=== PATIENT | female | born 1995 | race Caucasian/White ===

== ENCOUNTER → 2016-10-19 | Outpatient (CLI) | payer OTHER ==
[~2016-10-19] MED LIST: BCPILLS PO; LMC25 PO; RMR15 PO
[2016-10-22 02:32] LABS: CHLAMYDIA TRACH RNA*** NOT DETECTED (NOT DETECTED); GC (NEIS GONORRHOEAE)RNA** NOT DETECTED (NOT DETECTED)
== END | disposition home or self-care (01) ==
LOC: C.LAB1850 12:41
PROVIDERS: ATTEND Physician Assistant
DX: Z11.3 Encounter for screening for infections with a predominantly sexual mode of transmission (principal)

== ENCOUNTER → 2017-02-24 | Outpatient (CLI) | payer OTHER ==
[~2017-02-24] MED LIST changes: -LMC25 PO; -RMR15 PO
[2017-02-24 18:11] LABS: THYROID STIMULATING HORMONE 3.88 uIu/ml (0.300-4.500)
== END | disposition home or self-care (01) ==
LOC: C.LAB1850 16:23
PROVIDERS: ATTEND Physician Assistant
DX: E03.9 Hypothyroidism, unspecified (principal)

== ENCOUNTER 2017-04-07 19:04 | Inpatient (IN) | payer OTHER ==
[~2017-04-07] VITALS: Ht 162.6 cm; Wt 78.7 kg
[2017-04-07] MEDS ORDERED: BCPILLS PO (19:41)
[2017-04-07 19:51] LABS: URINE APPEARANCE CLEAR (CLEAR); URINE BILIRUBIN NEG (NEG); URINE COLOR YELLOW; URINE NITRITE NEG (NEG); URINE PH 6.5 (4.5-7.5); URINE SPECIFIC GRAVITY 1.012 (1.000-1.030); UROBILINOGEN NEG (NEG)
[2017-04-07 19:53] LABS: MANUAL MICROSCOPIC REQUIRED? NO; REVIEW REQ? NO
[2017-04-07 20:15] LABS: BENZODIAZEPINE, URINE NEG (NEG); COCAINE,URINE NEG (NEG); PHENCYCLIDINE, URINE NEG (NEG)
[2017-04-07 20:24] LABS: BASO % 0.3 %; BASO ABS # 0.03 K/uL (0-0.2); COMPLETE YES; EOS % 3.1 %; HEMATOCRIT 45.8 % (37-47); IG% 0.2 %; LYMPH % 30.1 %; MEAN CELL VOLUME 84.8 fL (80-100); MEAN CORPUSCULAR HEMOGLOBIN 30.4 pg (25-34); MEAN CORPUSCULAR HGB CONC 35.8 g/dl (32-36); MEAN PLATELET VOLUME 11.7 fL (7.4-10.4); MONO % 5.5 %; NEUT % 60.8 %; PLATELET COUNT 297 K/uL (130-400)
[2017-04-07 20:43] LABS: ALT/SGPT 36 U/L (12-78); AST/SGOT 20 U/L (15-37); BLOOD UREA NITROGEN 14 mg/dl (7-18); CALCIUM 9.2 mg/dl (8.5-10.1); CARBON DIOXIDE 23 mmol/L (21-32); CHLORIDE 110 mmol/L (98-107); CREATININE 0.82 mg/dl (0.60-1.20); GLUCOSE 80 mg/dl (70-99); POTASSIUM 3.8 mmol/L (3.5-5.1); SODIUM 141 mmol/L (136-145)
[2017-04-07 20:53] LABS: ALKALINE PHOSPHATASE 81 U/L (45-117)
[2017-04-07 21:31] LABS: PREG INTERNAL NEGATIVE QC NEG CLEAR BACKGROUND; PREG INTERNAL POSITIVE QC POS CONTROL LINE
[2017-04-07] MEDS ORDERED: NURSING VERBAL MED ORDER ONE (22:15)
[2017-04-07 22:42] VITALS: O2SAT 98
[2017-04-07] MEDS ORDERED: SODIUM CHLORIDE 0.65% NA SOLN 45 ML (OCEAN) PRN (22:45)
[2017-04-07] MEDS ORDERED: hydrOXYzine HCL 25 MG TAB PO PRN ×2 (22:45)
[2017-04-07] MEDS ORDERED: MAGNESIUM HYDROXIDE SUSP 30 ML UDC PO PRN (22:45)
[2017-04-07] MEDS ORDERED: BISMUTH SUBSALICYLATE PER ML OMNICELL CHARGE PO PRN (22:45)
[2017-04-07] MEDS ORDERED: ALUMINUM/MAGNESIUM SUSP 30 ML UDC PO PRN (22:45)
[2017-04-07] MEDS ORDERED: ACETAMINOPHEN 325 MG TAB PO PRN (22:45)
--- NOTE | 2017-04-08 00:20 | EMERGENCY ROOM VISIT NOTE ---
History Report prepared by Denzel: Fortino Bello Under the Supervision of: Dr. Eris Leblanc D.O. First contact with patient: 19:29 Chief Complaint: MENTAL HEALTH EVALUATION Stated Complaint: ANXIETY, DEPRESSION, SUICIDAL THOUGHTS History of Present Illness The patient is a 21 year old female who presents to the Emergency Room for a mental health evaluation. The patient states she has been experiencing worsening , chronic anxiety and depression over the past four days. She reports she had a really bad flare up, and since then she has experienced a very low mood and multiple anxiety attacks. The patient notes she has also been experiencing worsening, general suicidal ideation. She states she has not taken action, has no set plan, and her thoughts are typically intermittent. The patient reports she always has the "back up plan" where she takes all her prescribed medication at once. She notes she "doesn't care what happens to her." The patient states she has had no motivation, and she has been out of work for the past three days. 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 The patient notes she has not taken her medication for the past 3-4 months. She states she normally takes Lamictal and Wellbutrin daily and Lorazepam as needed. The patient reports she has been taking her Lorazepam more frequently over the past few days. She notes she has a history of hypothyroidism, and she does not take medication for it. The patient denies chest pain, shortness of breath, nausea, vomiting, diarrhea, and any other physical complaint. She states she has never been here before, has been seeing a psychiatrist and psychologist for two years, and is will to come in for treatment. The patient reports she has a history of cutting her upper thighs, but nothing recent. Source of History: patient Onset: four days ago Position: other (global) Quality: other (anxiety and depression) Timing: worsening Associated Symptoms: No chest pain, No SOB, No nausea, No vomiting, No diarrhea Note: Associated symptoms: suicidal ideations Review of Systems See HPI for pertinent positives & negatives. A total of 10 systems reviewed and were otherwise negative. Past Medical & Surgical Medical Problems: (1) Anxiety (2) Depression Family History Patient reports no known family medical history. Social History Smoking Status: Never Smoker Marital Status: in relationship Occupation Status: employed Current/Historical Medications Scheduled Control Pills ( Control Pills), 1 TAB PO DAILY Allergies Coded Allergies: Adhesives (Unverified Allergy, Unknown, RASH, 04/07/17) Aripiprazole (Unverified Allergy, Unknown, NAUSEA/VOMITING, 04/07/17) Nickel (Unverified Allergy, Unknown, RASH, 04/07/17) Physical Exam Vital Signs Date Time Temp Pulse Resp B/P (MAP) Pulse Ox O2 Delivery O2 Flow Rate FiO2 04/07/17 19:17 37.5 82 18 162/102 98 Room Air Physical Exam GENERAL: Sitting up in bed, alert, well appearing, well nourished, no distress, non-toxic EYE EXAM: normal conjunctiva OROPHARYNX: no exudate, no erythema, lips, buccal mucosa, and tongue normal and mucous membranes are moist NECK: supple, no nuchal rigidity, no adenopathy, non-tender LUNGS: Clear to auscultation. Normal chest wall mechanics HEART: no murmurs, S1 normal and S2 normal ABDOMEN: abdomen soft, non-tender, normo-active bowel sounds, no masses, no rebound or guarding. BACK: Back is symmetrical on inspection and there is no deformity, no midline tenderness, no CVA tenderness. SKIN: no rashes and no bruising UPPER EXTREMITIES: upper extremities are grossly normal. LOWER EXTREMITIES: No pitting edema. NEURO EXAM: Normal sensorium, cranial nerves II-XII grossly intact, normal speech, no gross weakness of arms, no gross weakness of legs. PSYCH: Admits to suicidal ideation and depression Medical Decision & Procedures Laboratory Results 04/07/17 20:02 Red Blood Count 5.40, Mean Corpuscular Volume 84.8, Mean Corpuscular Hemoglobin 30.4, Mean Corpuscular Hemoglobin Concent 35.8, Mean Platelet Volume 11.7, Neutrophils (%) (Auto) 60.8, Lymphocytes (%) (Auto) 30.1, Monocytes (%) (Auto) 5.5, Eosinophils (%) (Auto) 3.1, Basophils (%) (Auto) 0.3, Neutrophils # (Auto) 5.65, Lymphocytes # (Auto) 2.80, Monocytes # (Auto) 0.51, Eosinophils # (Auto) 0.29, Basophils # (Auto) 0.03 04/07/17 20:02 Test 04/07/17 19:39 04/07/17 20:02 Urine Color YELLOW Urine Appearance CLEAR (CLEAR) Urine pH 6.5 (4.5-7.5) Urine Specific [place] 1.012 (1.000-1.030) Urine Protein NEG (NEG) Urine Glucose (UA) NEG (NEG) Urine Ketones NEG (NEG) Urine Occult Blood NEG (NEG) Urine Nitrite NEG (NEG) Urine Bilirubin NEG (NEG) Urine Urobilinogen NEG (NEG) Urine Leukocyte Esterase TRACE (NEG) Urine WBC (Auto) 5-10 /hpf (0-5) Urine RBC (Auto) 0-4 /hpf (0-4) Urine Hyaline Casts (Auto) 0 /lpf (0-5) Urine Epithelial Cells (Auto) 10-20 /lpf (0-5) Urine Bacteria (Auto) NEG (NEG) Urine Opiates Screen NEG (NEG) Urine Methadone, Qualitative NEG (NEG) Urine Barbiturates NEG (NEG) Urine Phencyclidine (PCP) Level NEG (NEG) Ur Amphetamine/Methamphetamine NEG (NEG) MDMA (Ecstasy) Screen NEG (NEG) Urine Benzodiazepines Screen NEG (NEG) Urine Cocaine Metabolite NEG (NEG) Urine Marijuana (THC) POS (NEG) White Blood Count 9.30 K/uL (4.8-10.8) Red Blood Count 5.40 M/uL (4.2-5.4) Hemoglobin 16.4 g/dL (12.0-16.0) Hematocrit 45.8 % (37-47) Mean Corpuscular Volume 84.8 fL (80-100) Mean Corpuscular Hemoglobin 30.4 pg (25-34) Mean Corpuscular Hemoglobin Concent 35.8 g/dl (32-36) Platelet Count 297 K/uL (130-400) Mean Platelet Volume 11.7 fL (7.4-10.4) Neutrophils (%) (Auto) 60.8 % Lymphocytes (%) (Auto) 30.1 % Monocytes (%) (Auto) 5.5 % Eosinophils (%) (Auto) 3.1 % Basophils (%) (Auto) 0.3 % Neutrophils # (Auto) 5.65 K/uL (1.4-6.5) Lymphocytes # (Auto) 2.80 K/uL (1.2-3.4) Monocytes # (Auto) 0.51 K/uL (0.11-0.59) Eosinophils # (Auto) 0.29 K/uL (0-0.5) Basophils # (Auto) 0.03 K/uL (0-0.2) RDW Standard Deviation 37.7 fL (36.4-46.3) RDW Coefficient of Variation 12.4 % (11.5-14.5) Immature Granulocyte % (Auto) 0.2 % Immature Granulocyte # (Auto) 0.02 K/uL (0.00-0.02) Anion Gap 8.0 mmol/L (3-11) Est Creatinine Clear Calc Drug Dose 109.6 ml/min Estimated GFR () 116.9 Estimated GFR (Non- 100.9 BUN/Creatinine Ratio 17.0 (10-20) Calcium Level 9.2 mg/dl (8.5-10.1) Total Bilirubin 0.4 mg/dl (0.2-1) Direct Bilirubin < 0.1 mg/dl (0-0.2) Aspartate Amino Transf (AST/SGOT) 20 U/L (15-37) Alanine Aminotransferase (ALT/SGPT) 36 U/L (12-78) Alkaline Phosphatase 81 U/L (45-117) Total Protein 7.9 gm/dl (6.4-8.2) Albumin 4.4 gm/dl (3.4-5.0) Thyroid Stimulating Hormone (TSH) 5.240 uIu/ml (0.300-4.500) Human Chorionic Gonadotropin, Qual NEG (NEG) Ethyl Alcohol mg/dL < 3.0 mg/dl (0-3) Laboratory results per my review. ED Course ED COURSE: Vital signs were reviewed and showed the patient to be hypertensive. The patients medical record was reviewed The above diagnostic studies were performed and reviewed. ED treatments and interventions as stated above. 1940: The patient was evaluated in room A07. A complete history and physical examination was performed. 2214: The patient was accepted at [facility]. Based on the patients age, coexisting illnesses, exam and lab findings the decision to treat as an inpatient was made. The patient remained stable while under my care. The patient will be evaluated for further management. Medical Decision Differential diagnosis: Etiologies such as mood disorder, infection, hypoglycemia, electrolyte abnormalities, cardiac sources, intracerebral event, toxicologic, neurologic, as well as others were entertained. Patient is a 21-year-old female who presents to ER for thoughts of self-harm which have been worsening recently associated with depression and anxiety. Patient does feels that she is a danger to herself. She has no physical complaints. CBC all BMP, LFTs, bilirubin and TSH are remarkable for a slightly elevated TSH. HCG was negative. UA shows no signs of infection. Patient was updated at bedside and admitted to 3 S. following evaluation by our psychiatric team. Medication Reconcilliation Current Medication List: was personally reviewed by me Blood Pressure Screening Patient's blood pressure: Elevated blood pressure Blood pressure disposition: Elevated BP felt to be situational Impression Primary Impression: Mood disorder Additional Impression: Suicidal thoughts Scribe Attestation The scribe's documentation has been prepared under my direction and personally reviewed by me in its entirety. I confirm that the note above accurately reflects all work, treatment, procedures, and medical decision making performed by me. Departure Information Dispostion Mental Health Acute Care Referrals Fabien Tamayo MD (PCP) Patient Instructions My [facility] Problem Qualifiers
[2017-04-08 00:22] VITALS: BP 138/87; PULSE 84; TEMP 37.5; Ht 162.6 cm; Wt 78.7 kg
[2017-04-08 06:54] VITALS: BP_SYST 121; BP_SYST 134; BP_DIAS 72; BP_DIAS 90; PULSE 81; PULSE 87; TEMP 36.7
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
[2017-04-08] MEDS ORDERED: LORAZEPAM 1 MG TAB PO PRN (16:30)
[2017-04-08] MEDS: MIRTAZAPINE TAB 15 MG TAB PO SCH (21:31)
[2017-04-09 07:05] VITALS: BP_SYST 113; BP_SYST 96; BP_DIAS 64; BP_DIAS 77; PULSE 58; PULSE 80; TEMP 36.6
--- NOTE | 2017-04-09 12:49 | Psychiatric Progress Notes ---
Progress Note Date of Service Apr 09, 2017. Chief Complaint "I do feel less depressed". Subjective Patient was seen & assessed interval progress reviewed with Treatment Team. Per staff, patient doing well in milieu. No acute events overnight. Patient reports reinitiation of Remeron last night seemed to help with sleep and she spent less time with anxious thinking at bedtime. She does describe feeling a little groggy this morning but tolerable. Overall she is feeling more relaxed and describes feeling a little less depressed. She acknowledges some anticipatory anxiety about how she will do at discharge and identifies 2 primary stressors of work and bills. She is considering participating in Narcotics Anonymous and was encouraged to pursue this for additional support. She has already reached out to a friend who participates in Alcoholics Anonymous. She would like to pursue a family meeting with her boyfriend who is also a marijuana abuser as she rightfully worries that his use will undermine her efforts to abstain. Review of Systems Psychiatric: + depression symptoms (but a little less so today), + anxiety Sleep Information Total Hours of Sleep: 7.25 Meal Information Percent of Breakfast Consumed: 100 Percent of Lunch Consumed: 100 Percent of Dinner Consumed: 100 Mental Status Exam During interview pt is: alert and oriented, cooperative Appearance: appropriately dressed, appropriately groomed Eye contact is: good Motor behavior is: steady gait & station Speech: normal in rate, rhythm & volume Affect: mood congruent, depressed, anxious Mood is: depressed Thought process: goal directed (mildly circumstantial) Thought content: preoccupation Suicidal thought are: present, Plan: denied, Intent: denied Homicidal thoughts are: denied Hallucinations: denies auditory, denies visual Cognition: memory grossly intact, language grossly intact Intelligence estimated to be: average Insight: limited Judgement: impaired Impression This is a 21-year-old female with a history of depression versus bipolar 2 disorder who has had problematic anxiety and possibly activation on higher dose SSRIs in the past. She also has a long history of excessive anxiety with social component and also likely OCD. She has a history of self injury and is also a chronic marijuana abuser. She self discontinued her psychotropics a few months ago with subsequent decline in mood and exacerbation of anxiety. She experienced a panic attack earlier this week and is having more active suicidal ideation requiring psychiatric hospitalization for maintenance of safety while medications are restarted Diagnosis: MDD, recurrent, severe, without psychosis; rule out bipolar affective disorder type II; generalized anxiety disorder with features of OCD and social phobia and panic; marijuana use disorder Plan (1) Depression 04/08 -Patient admitted to the behavioral health unit on a voluntary status. She will be encouraged to participate in unit programming as appropriate. She will be maintained on every 15 minute safety checks for suicidal ideation - I spoke directly with her outpatient provider, Dr. Oliver this morning, and we will coordinate with her outpatient providers prior to discharge - Will restart the Lamictal 25 mg by mouth daily at bedtime with plan to re- titrate to her former dose of 200 mg daily in the coming weeks. Common risks and benefits were reviewed including risk for Leigh-Evin syndrome - We discussed a multitude of options regarding potential alternative antidepressants. Ultimately she preferred to restart the Remeron that she had previously found to be helpful and will begin at a 30 mg daily at bedtime dose tonight. Longer term will want to keep an eye on her weight back on the medication 04/09 - Sleep improved back on Remeron. Reviewed tolerability and she may experience a few days of a.m. grogginess but so far tolerable. Reporting some mood improvement already and increased hopefulness in supportive milieu (2) Anxiety 04/08 - remeron as above - Will allow access to her outpatient dose of Ativan 1 mg when necessary. We 'll write for q8 hour interval while hospitalized temporarily (3) Marijuana use, continuous 04/08 - Patient was educated regarding the potential negative impact of chronic marijuana use and she was strongly encouraged to make efforts to begin reducing her daily use at least to once daily in the late evening. She verbalized insight that this was necessary but has struggled to hold herself to this goal in recent past - recovery protocol 04/09 - Patient is considering Narcotics Anonymous and was encouraged to pursue - Will attempt to facilitate family meeting with boyfriend prior to discharge who is reportedly also a marijuana abuser (4) Hypothyroid 04/08 - TSH has been slightly elevated. Patient has seen endocrinology and previously was recommended thyroid supplementation however she reports PCP has given her contradicting advice. She is presently not supplemented. Free T3 was reviewed from February which was within normal limits The above was dictated using voice recognition software. Please direct any questions to the undersigned Discharge / Aftercare Planning Primary Care Physician: Name: Dr Oliver Therapist: Name: Von Dykes - Lexa Visit Code E&M Code: 45654 Inventory Assets Strengths: She is help seeking and has a previous therapeutic relationship with her outpatient providers Needs: Presently she requires maintenance of safety and pharmacotherapy Risk Factors Assessment : Yes Mental Health Diagnoses: Yes Substance use disorders: Yes Previous attempt: No Family history of suicide: Yes Previous psychiatric stay: No Hopelessness: Yes Smoker: No Protective Factors Assessment Faith beliefs: No : No Responsible for young children: No Employed: Yes Good rapport with provider: Yes Data Vital Signs Last 24 Hrs: Date Time Temp Pulse Resp B/P (MAP) Pulse Ox O2 Delivery O2 Flow Rate FiO2 04/09/17 07:05 36.6 58 17 96/64 80 113/77 Meds Administered Last 24 Hrs: Meds Administered (Past 24Hrs) Medications (Trade) Dose Ordered Sig/Deanna Route Start Time Stop Time Status Last Admin Dose Admin Acetaminophen (Tylenol Tab) 650 mg Q4H PRN PO 04/07/17 22:45 05/07/17 22:44 04/08/17 16:01 650 MG Lamotrigine (Lamictal Tab) 25 mg HS PO 04/08/17 22:00 05/08/17 21:59 04/08/17 21:31 25 MG Mirtazapine (Remeron Tab) 30 mg HS PO 04/08/17 22:00 05/08/17 21:59 04/08/17 21:31 30 MG
[2017-04-09] MEDS ORDERED: NURSING VERBAL MED ORDER ONE (19:15)
[2017-04-09] MEDS: NORGESTREL PO SCH (19:31)
[2017-04-09] MEDS: ETHINYL ESTRADIOL PO SCH (19:31)
[2017-04-09] MEDS: MIRTAZAPINE TAB 15 MG TAB PO SCH (21:55)
[2017-04-10 06:57] VITALS: BP_SYST 106; BP_SYST 116; BP_DIAS 71; BP_DIAS 83; PULSE 80; PULSE 87; TEMP 36.5
[2017-04-10] MEDS: NORGESTREL PO SCH (09:14)
[2017-04-10] MEDS: ETHINYL ESTRADIOL PO SCH (09:14)
--- NOTE | 2017-04-10 12:37 | Psychiatric Progress Notes ---
Progress Note Date of Service Apr 10, 2017. Chief Complaint "I feel better in regards to my mood". Subjective Patient was seen & assessed interval progress reviewed with Treatment Team. Margareth states her mood has improved since admission, although she continues to have anxiety and feels down at night when she is alone and "time to let my thoughts go." She has been anxious about her inability to get ahold of her boyfriend, and says she fears he will leave or "be taken from me in some way." She recognizes that these are unrealistic fears, but still feels stressed by them. She also worries about her finances and missing work. She feels worse when she is alone. Rates mood a 7/10 at it's best, usually in the afternoon, as it is also worse in the mornings. She denies SI since admission, but notes she has those thoughts when she is alone, which hasn't happened in the hospital as she is around other people. She says the thoughts tend to occur when she feels she is "not important to other people." She notes poor supports at home, as family is out of state and she doesn't have close friends. She has talked to her boyfriend during visiting hours, and would like to have a meeting with him. Sleep Information Total Hours of Sleep: 7.00 Meal Information Percent of Breakfast Consumed: 100 Percent of Lunch Consumed: 50 Percent of Dinner Consumed: 100 Mental Status Exam During interview pt is: alert and oriented, cooperative Appearance: appropriately dressed (Batman pajama bottoms and sweater), appropriately groomed, other (nose ring) Eye contact is: good Motor behavior is: steady gait & station, no abnormal motor movements Speech: normal in rate, rhythm & volume Affect: mood congruent, depressed, anxious Mood is: depressed Thought process: goal directed (mildly circumstantial) Thought content: preoccupation Suicidal thought are: denied Homicidal thoughts are: denied Hallucinations: denies auditory, denies visual Cognition: memory grossly intact, language grossly intact Intelligence estimated to be: average Insight: fair Judgement: fair Impression This is a 21-year-old female with a history of depression versus bipolar 2 disorder who has had problematic anxiety and possibly activation on higher dose SSRIs in the past. She also has a long history of excessive anxiety with social component and also likely OCD. She has a history of self injury and is also a chronic marijuana abuser. She self discontinued her psychotropics a few months ago with subsequent decline in mood and exacerbation of anxiety. She experienced a panic attack earlier this week and is having more active suicidal ideation requiring psychiatric hospitalization for maintenance of safety while medications are restarted Diagnosis: MDD, recurrent, severe, without psychosis; rule out bipolar affective disorder type II; generalized anxiety disorder with features of OCD and social phobia and panic; marijuana use disorder Plan (1) Depression 04/08 -Patient admitted to the behavioral health unit on a voluntary status. She will be encouraged to participate in unit programming as appropriate. She will be maintained on every 15 minute safety checks for suicidal ideation - I spoke directly with her outpatient provider, Dr. Oliver this morning, and we will coordinate with her outpatient providers prior to discharge - Will restart the Lamictal 25 mg by mouth daily at bedtime with plan to re- titrate to her former dose of 200 mg daily in the coming weeks. Common risks and benefits were reviewed including risk for Leigh-Evin syndrome - We discussed a multitude of options regarding potential alternative antidepressants. Ultimately she preferred to restart the Remeron that she had previously found to be helpful and will begin at a 30 mg daily at bedtime dose tonight. Longer term will want to keep an eye on her weight back on the medication 04/09 - Sleep improved back on Remeron. Reviewed tolerability and she may experience a few days of a.m. grogginess but so far tolerable. Reporting some mood improvement already and increased hopefulness in supportive milieu 04/10 - Continue lamotrigine 25mg daily and mirtazapine 30mg qhs. - Mood and sleep improving, and patient working on her workbook and active in groups. - Arrange family meeting with boyfriend, whom she lives with. (2) Anxiety Generalized anxiety disorder with features of OCD and social phobia and panic 04/08 - remeron as above - Will allow access to her outpatient dose of Ativan 1 mg when necessary. We 'll write for q8 hour interval while hospitalized temporarily (3) Marijuana use, continuous 04/08 - Patient was educated regarding the potential negative impact of chronic marijuana use and she was strongly encouraged to make efforts to begin reducing her daily use at least to once daily in the late evening. She verbalized insight that this was necessary but has struggled to hold herself to this goal in recent past - Recovery protocol 04/09 - Patient is considering Narcotics Anonymous and was encouraged to pursue - Will attempt to facilitate family meeting with boyfriend prior to discharge who is reportedly also a marijuana abuser 04/10 - Patient working on recovery protocol, and considering attending peer support (NA or AA), as she has not been able to cut back or quit on her own. - Wants to discuss this in the meeting with her boyfriend, as he also smokes marijuana. (4) Hypothyroid 04/08 - TSH has been slightly elevated. Patient has seen endocrinology and previously was recommended thyroid supplementation however she reports PCP has given her contradicting advice. She is presently not supplemented. Free T3 was reviewed from February which was within normal limits Discharge / Aftercare Planning Primary Care Physician: Name: Dr Oliver Therapist: Name: Von Lindquist Date of Appointment: Apr 18, 2017 Time of Appointment: 0800 Visit Code E&M Code: 39178 Inventory Assets Strengths: She is help seeking and has a previous therapeutic relationship with her outpatient providers Needs: Presently she requires maintenance of safety and pharmacotherapy Risk Factors Assessment : Yes /single/: No Higher / Fall in social status: No Access to guns: No Health problems: No Mental Health Diagnoses: Yes Substance use disorders: Yes Previous attempt: No Family history of suicide: Yes Previous psychiatric stay: No Hopelessness: Yes Smoker: No Protective Factors Assessment Orthodoxy beliefs: No : No Responsible for young children: No Employed: Yes Stable relationships: Yes Good rapport with provider: Yes Data Vital Signs Last 24 Hrs: Date Time Temp Pulse Resp B/P (MAP) Pulse Ox O2 Delivery O2 Flow Rate FiO2 04/10/17 06:57 36.5 80 16 106/71 87 116/83 Meds Administered Last 24 Hrs: Meds Administered (Past 24Hrs) Medications (Trade) Dose Ordered Sig/Deanna Route Start Time Stop Time Status Last Admin Dose Admin Lamotrigine (Lamictal Tab) 25 mg HS PO 04/08/17 22:00 05/08/17 21:59 04/09/17 21:55 25 MG Mirtazapine (Remeron Tab) 30 mg HS PO 04/08/17 22:00 05/08/17 21:59 04/09/17 21:55 30 MG Ethinyl Estradiol/ Norgestrel (Cryselle 28 Day 0.3/0.03MG) 1 tab DAILY PO 04/09/17 19:31 05/09/17 19:30 04/10/17 09:14 1 TAB Problem Qualifiers (1) Depression: Depression Type: major depressive disorder Major depression recurrence: recurrent Active/Remission status: currently active Major depression episode severity: severe Psychotic features: with psychotic features Qualified Codes : F33.3 - Major depressive disorder, recurrent, severe with psychotic symptoms
[2017-04-10] MEDS: MIRTAZAPINE TAB 15 MG TAB PO SCH (22:29)
[2017-04-11 06:52] VITALS: BP_SYST 101; BP_SYST 114; BP_DIAS 66; BP_DIAS 76; PULSE 63; PULSE 87; TEMP 36.8
[2017-04-11] MEDS: NORGESTREL PO SCH (08:34)
[2017-04-11] MEDS: ETHINYL ESTRADIOL PO SCH (08:34)
--- NOTE | 2017-04-11 12:45 | Psychiatric Progress Notes ---
Progress Note Date of Service Apr 11, 2017. Interval History Margareth Conn is a 21-year-old female who currently lives in [place] with her boyfriend. Margareth Conn was admitted on a 201 voluntary commitment. She was admitted through the [facility] where she presented for mental health evaluation on 04/07/2017. Chief Complaint "I want to make a lot of changes". Subjective Patient was seen & assessed interval progress reviewed with Nursing. Staff report she is going to groups and participating actively in her treatment. She had a meeting with her boyfriend today, which she states went very well, as he is supportive and wants to help her make some changes in her life. She states that he agreed that they need to stop smoking pot, and is going to remove all of it from the home prior to her discharge. She also wants to work on structuring her time better, noting that her mood tends to be lowest when she has too much unstructured time, particularly on the weekends. She wants her boyfriend to help hold her accountable for following through on things that she commits to doing. She notes that she tends to have a lot of all or nothing thinking, and will often abandon a plan if one thing goes wrong. She says this is what happened with her medications, as she felt they weren't helpful the way she expected them to be, "I felt like a lost cause, it wasn't worth the effort to keep trying," so she just stopped them altogether. She feels she is learning more about mental illness and realizing that this way of thinking is not necessarily helpful. We talked about the idea that in dealing with chronic mental health issues, just "showing up," taking her medications, going to appointments, and continuing to work on her long-term goals is considered progress and that there will be some days where things don't work or go as well as she hopes. She denies suicidal thoughts and feels safe in the hospital, but is worried that she would decompensate if she left the hospital too soon, and thinks she needs more time to continue to go to groups, work on coping skills, and "process everything." She feels that groups have been very helpful for her to "analyze my thoughts and behavior." Sleep Information Total Hours of Sleep: 6.00 Meal Information Percent of Breakfast Consumed: 80 Percent of Lunch Consumed: 50 Percent of Dinner Consumed: 100 Mental Status Exam During interview pt is: alert and oriented, cooperative Appearance: appropriately dressed, appropriately groomed, other (nose ring) Eye contact is: good Motor behavior is: steady gait & station, no abnormal motor movements Speech: normal in rate, rhythm & volume Affect: mood congruent, depressed, anxious, other (but more reactive) Mood is: other ("better") Thought process: goal directed Thought content: reality based without delusions Suicidal thought are: denied Homicidal thoughts are: denied Hallucinations: denies auditory, denies visual Cognition: memory grossly intact, language grossly intact Intelligence estimated to be: average Insight: fair Judgement: fair Impression This is a 21-year-old female with a history of depression versus bipolar 2 disorder who has had problematic anxiety and possibly activation on higher dose SSRIs in the past. She also has a long history of excessive anxiety with social component and also likely OCD. She has a history of self injury and is also a chronic marijuana abuser. She self discontinued her psychotropics a few months ago with subsequent decline in mood and exacerbation of anxiety. She experienced a panic attack earlier this week and is having more active suicidal ideation requiring psychiatric hospitalization for maintenance of safety while medications are restarted. She is participating fully in treatment, is improving, but continues to feel unsafe to leave the hospital, so requires continued inpatient care. Diagnosis: MDD, recurrent, severe, without psychosis; rule out bipolar affective disorder type II; generalized anxiety disorder with features of OCD and social phobia and panic; marijuana use disorder Plan (1) Depression 04/08 -Patient admitted to the behavioral health unit on a voluntary status. She will be encouraged to participate in unit programming as appropriate. She will be maintained on every 15 minute safety checks for suicidal ideation - I spoke directly with her outpatient provider, Dr. Oliver this morning, and we will coordinate with her outpatient providers prior to discharge - Will restart the Lamictal 25 mg by mouth daily at bedtime with plan to re- titrate to her former dose of 200 mg daily in the coming weeks. Common risks and benefits were reviewed including risk for Leigh-Evin syndrome - We discussed a multitude of options regarding potential alternative antidepressants. Ultimately she preferred to restart the Remeron that she had previously found to be helpful and will begin at a 30 mg daily at bedtime dose tonight. Longer term will want to keep an eye on her weight back on the medication 04/09 - Sleep improved back on Remeron. Reviewed tolerability and she may experience a few days of a.m. grogginess but so far tolerable. Reporting some mood improvement already and increased hopefulness in supportive milieu 04/10 - Continue lamotrigine 25mg daily and mirtazapine 30mg qhs. - Mood and sleep improving, and patient working on her workbook and active in groups. - Arrange family meeting with boyfriend, whom she lives with. 04/11 - Family meeting held with boyfriend, who is supportive and will be removing all drug paraphernalia from their home prior to discharge to help her abstain from drug use. Encouraged her to work on a concrete plan for sheltering her free time after discharge, as she identifies this as a challenge for her and a time when mood and anxiety are worse. - Continue current medications, and coordinate with outpatient providers for timely follow-up appointments. (2) Anxiety Generalized anxiety disorder with features of OCD and social phobia and panic 04/08 - remeron as above - Will allow access to her outpatient dose of Ativan 1 mg when necessary. We 'll write for q8 hour interval while hospitalized temporarily (3) Marijuana use, continuous 04/08 - Patient was educated regarding the potential negative impact of chronic marijuana use and she was strongly encouraged to make efforts to begin reducing her daily use at least to once daily in the late evening. She verbalized insight that this was necessary but has struggled to hold herself to this goal in recent past - Recovery protocol 04/09 - Patient is considering Narcotics Anonymous and was encouraged to pursue - Will attempt to facilitate family meeting with boyfriend prior to discharge who is reportedly also a marijuana abuser 04/10 - Patient working on recovery protocol, and considering attending peer support (NA or AA), as she has not been able to cut back or quit on her own. - Wants to discuss this in the meeting with her boyfriend, as he also smokes marijuana. 04/11 - Patient agreeing to abstain from her wanted, and her boyfriend supports her in this and will remove the drugs from the home prior to discharge. (4) Hypothyroid 04/08 - TSH has been slightly elevated. Patient has seen endocrinology and previously was recommended thyroid supplementation however she reports PCP has given her contradicting advice. She is presently not supplemented. Free T3 was reviewed from February which was within normal limits Discharge / Aftercare Planning Primary Care Physician: Name: Dr Oliver Date of Appointment: Apr 25, 2017 Time of Appointment: 10:30 am Therapist: Name: Von Lindquist Date of Appointment: Apr 18, 2017 Time of Appointment: 0800 Home Health Services: Home Health Services: none Visit Code E&M Code: 48938 Inventory Assets Strengths: She is help seeking and has a previous therapeutic relationship with her outpatient providers Needs: Presently she requires maintenance of safety and pharmacotherapy Risk Factors Assessment : Yes /single/: No Higher / Fall in social status: No Access to guns: No Health problems: No Mental Health Diagnoses: Yes Substance use disorders: Yes Previous attempt: No Family history of suicide: Yes Previous psychiatric stay: No Hopelessness: Yes Smoker: No Protective Factors Assessment Taoism beliefs: No : No Responsible for young children: No Employed: Yes Stable relationships: Yes Good rapport with provider: Yes Data Vital Signs Last 24 Hrs: Date Time Temp Pulse Resp B/P (MAP) Pulse Ox O2 Delivery O2 Flow Rate FiO2 04/11/17 06:52 36.8 63 16 101/66 87 114/76 Meds Administered Last 24 Hrs: Meds Administered (Past 24Hrs) Medications (Trade) Dose Ordered Sig/Deanna Route Start Time Stop Time Status Last Admin Dose Admin Ethinyl Estradiol/ Norgestrel (Cryselle 28 Day 0.3/0.03MG) 1 tab DAILY PO 04/09/17 19:31 05/09/17 19:30 04/11/17 08:34 1 TAB Problem Qualifiers (1) Depression: Depression Type: major depressive disorder Major depression recurrence: recurrent Active/Remission status: currently active Major depression episode severity: severe Psychotic features: with psychotic features Qualified Codes : F33.3 - Major depressive disorder, recurrent, severe with psychotic symptoms
[2017-04-11] MEDS: MIRTAZAPINE TAB 15 MG TAB PO SCH (22:02)
[2017-04-12 07:04] VITALS: BP_SYST 112; BP_SYST 99; BP_DIAS 65; BP_DIAS 78; PULSE 73; PULSE 88; TEMP 36.9
[2017-04-12] MEDS: NORGESTREL PO SCH (08:12)
[2017-04-12] MEDS: ETHINYL ESTRADIOL PO SCH (08:12)
[2017-04-12] MEDS ORDERED: LMC25 PO (10:14)
[2017-04-12] MEDS ORDERED: RMR15 PO (10:14)
--- NOTE | 2017-04-12 10:24 | Discharge Instructions ---
Discharge Information Report Includes Report will include the: Discharge Instructions & Summary Admission Admission Date / Time: Apr 07, 2017 at 22:12 Reason for Admission: Depressive Episode Discharge Discharge Diagnosis / Problem: Depression Condition at Discharge: Good Discharge Goals Goal(s): Decrease discomfort, Improve function, Prevent Disease Progression Activity Recommendations Activity Limitations: resume your previous activity . Instructions / Follow-Up Instructions / Follow-Up . SPECIAL CARE INSTRUCTIONS: 1. Follow through with your scheduled aftercare appointments. If unable to keep an appointment, please call to reschedule. 2. Take your medication only as prescribed. Medication should not be changed or stopped without the approval of your doctor. In the event of worsening symptoms or concerns about side effects, contact your doctor immediately. 3. Utilize new healthy coping skills, anger management skills, and stress management skills learned during your hospitalization. Journal feelings and process them with a support person. Identify stressors or situations that may result in relapse, deterioration or inappropriate behaviors and develop a plan to deal with those issues. 4. If your coping skills are ineffective and you are in crisis, contact your outpatient providers for direction. If unable to reach your providers, please call the CAN HELP LINE AT or go to the closest Emergency Room. 5. Avoid alcohol and un-prescribed drugs. 6. You have been provided with the Mental Health Advance Directives Pamphlet for your review. AFTERCARE APPOINTMENTS: * Please call your insurance company prior to your scheduled appointment to confirm your aftercare providers are covered. Take your insurance information to your appointments. . Discharge / Aftercare Planning Primary Care Physician: Name: Dr Oliver Date of Appointment: Apr 25, 2017 Time of Appointment: 10:30 am Therapist: Name Of Therapist: Von Lindquist Date of Appointment: Apr 18, 2017 Time of Appointment: 0800 Home Health Services: Home Health Services: none . Follow-Up Care Plan for Follow-Up Care: The patient will return to her regular OP providers, Dr. Oliver and Dwain Mariano [employer] Current Hospital Diet Patient's current hospital diet: Regular Diet Discharge Diet Recommended Diet: Regular Diet Procedures Procedures Performed: No Pending Studies Pending Studies at Discharge: No Medical Emergencies . Who to Call and When: Medical Emergencies: For questions or emergencies related to your hospital stay, please contact the Inpatient Behavioral Health Unit at [phone]. A psychiatric security nurse is on-call 16/01 for the Behavioral Health Unit for emergencies At any time you feel your situation is an emergency, you may also call 911 immediately. . Non-Emergent Contact Non-Emergency issues call your: Psychiatrist, Therapist Advance Directives Existing Advance Directive: No Do You Have an Existing Mental: No Existing Living Will: No Existing Power of [place]: No Advance Directives Info Given: To Pt/S.O. Advance Directives Reason: Declines as Mental Health Visit. Discharge Summary Admission HPI Per the Admitting provider: Margareth is a an outpatient of Dr. Zaina Oliver, a colleague of justin with whom I was in contact this morning regarding this patient. She has a history of depression, rule out bipolar 2 disorder, generalized anxiety disorder, OCD, and marijuana dependence. She was last seen by Dr. Oliver on 01/26/2017 at which time she was feeling a bit better following a dose reduction of Wellbutrin which had been causing some tachycardia. She rated her mood 6 out of 10 at that time and denied suicidal ideation. She was also being treated with Lamictal 200 mg daily and Remeron 45 mg daily as well as occasional lorazepam 1 mg when necessary which she was not taking frequently. It was suggested that she try further dose escalating the Remeron to 60 mg for additional benefit. She was counseled to reduce her marijuana use. It appears the patient self discontinued her medications shortly after that visit. She reports that she began to feel more depressed, more apathetic, got behind on her medications and did not know how to restart them, and had trouble getting in to see her outpatient provider secondary to her work schedule. Subsequently she has been feeling more depressed, more anxious. She presented to the ER yesterday reporting worsening chronic anxiety and depression over the past 4 days and hadn 't had a panic attack which are uncommon last Monday without clear trigger. She described general suicidal ideation with no specific plan but did state that there was always a "backup plan" of overdosing on all of her prescribed medications. She stated that she didn't care what happened to her. She complained of no motivation and had been out of work for the past 3 days. A history of cutting was noted but denied recent. She was medically cleared in the ER and admitted to the behavioral health unit on a voluntary status. Labs were notable for slightly elevated TSH. On interview this morning, we reviewed her long history of excessive anxiety including symptoms of OCD with tendency to try to bring order to her environment, preference for patterns that "feel right to me" tendency to count and spend excessive amounts of time doing these tasks. She denies regular panic attacks but reports panic attack last Monday included symptoms of shortness of breath, chest constriction, feeling that she needed to escape and that something terrible was going to happen. She reports her mood has been more depressed, near anhedonic, irritability increased , increased frequency of crying spells, worsening black and white thinking particularly regarding self assessments, and increased impulses to engage in cutting but has not done any self injury primarily because she has not had the opportunity living with her boyfriend. She believes her mood disorder goes back to possibly childhood. She describes to me that she felt more anxious on high-dose antidepressant therapy with Dr. Oliver but seemed to do better with the Lamictal on board. She notes a family history of bipolar disorder and suicide attempts in mother and sister. She is uncertain what they take for treatment. 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 She denies symptoms of rosendo patricia or psychosis. She is able to articulate that her chronic marijuana use is likely counter therapeutic but stipulates that it is the only thing that seems to quell her anxiety and she secondarily struggles to abstain from it for very long. At time of interview she continues to endorse hopeless thoughts and does not believe that she would be safe outside of the hospital. She is willing to restart the Lamictal and seems to regret that she discontinued the medication. She voices concern about the potential for weight gain if she restarts the Remeron as she believes she has lost 30 pounds in the past several months however she is apprehensive about considering alternatives. Hospital Course (1) Depression 04/08 -Patient admitted to the behavioral health unit on a voluntary status. She will be encouraged to participate in unit programming as appropriate. She will be maintained on every 15 minute safety checks for suicidal ideation - I spoke directly with her outpatient provider, Dr. Oliver this morning, and we will coordinate with her outpatient providers prior to discharge - Will restart the Lamictal 25 mg by mouth daily at bedtime with plan to re- titrate to her former dose of 200 mg daily in the coming weeks. Common risks and benefits were reviewed including risk for Leigh-Evin syndrome - We discussed a multitude of options regarding potential alternative antidepressants. Ultimately she preferred to restart the Remeron that she had previously found to be helpful and will begin at a 30 mg daily at bedtime dose tonight. Longer term will want to keep an eye on her weight back on the medication 04/09 - Sleep improved back on Remeron. Reviewed tolerability and she may experience a few days of a.m. grogginess but so far tolerable. Reporting some mood improvement already and increased hopefulness in supportive milieu 04/10 - Continue lamotrigine 25mg daily and mirtazapine 30mg qhs. - Mood and sleep improving, and patient working on her workbook and active in groups. - Arrange family meeting with boyfriend, whom she lives with. 04/11 - Family meeting held with boyfriend, who is supportive and will be removing all drug paraphernalia from their home prior to discharge to help her abstain from drug use. Encouraged her to work on a concrete plan for sheltering her free time after discharge, as she identifies this as a challenge for her and a time when mood and anxiety are worse. - Continue current medications, and coordinate with outpatient providers for timely follow-up appointments. (2) Anxiety Generalized anxiety disorder with features of OCD and social phobia and panic 04/08 - remeron as above - Will allow access to her outpatient dose of Ativan 1 mg when necessary. We 'll write for q8 hour interval while hospitalized temporarily (3) Marijuana use, continuous 04/08 - Patient was educated regarding the potential negative impact of chronic marijuana use and she was strongly encouraged to make efforts to begin reducing her daily use at least to once daily in the late evening. She verbalized insight that this was necessary but has struggled to hold herself to this goal in recent past - Recovery protocol 04/09 - Patient is considering Narcotics Anonymous and was encouraged to pursue - Will attempt to facilitate family meeting with boyfriend prior to discharge who is reportedly also a marijuana abuser 04/10 - Patient working on recovery protocol, and considering attending peer support (NA or AA), as she has not been able to cut back or quit on her own. - Wants to discuss this in the meeting with her boyfriend, as he also smokes marijuana. 04/11 - Patient agreeing to abstain from her wanted, and her boyfriend supports her in this and will remove the drugs from the home prior to discharge. (4) Hypothyroid 04/08 - TSH has been slightly elevated. Patient has seen endocrinology and previously was recommended thyroid supplementation however she reports PCP has given her contradicting advice. She is presently not supplemented. Free T3 was reviewed from February which was within normal limits Risk Factors Assessment : Yes /single/: No Higher / Fall in social status: No Access to guns: No Health problems: No Mental Health Diagnoses: Yes Substance use disorders: Yes Previous attempt: No Family history of suicide: Yes Previous psychiatric stay: No Hopelessness: Yes Smoker: No Protective Factors Assessment Jewish beliefs: No : No Responsible for young children: No Employed: Yes Stable relationships: Yes Good rapport with provider: Yes Day of Discharge Assessment COURSE OF HOSPITALIZATION: The patient has been on our unit for 5 days. She was admitted voluntarily after presenting to the emergency room with worsening depression and suicidality. She admits to having stopped her medications weeks before and had not followed up with her primary care physician. She admits that her mood worsened after stopping medications and realizes she shouldn't put more effort into calling her provider. There was some suspicion of a bipolar 2 disorder and so she was started on Lamictal 25 mg at at bedtime receiving 4 doses here, without side effect or evidence of Leigh-Evin syndrome. Her mood improved in the hospital, she believes this was in large part due to the structure and her ability to "get outside of myself. She recognizes that she had been isolating in her depression and has been without a good support network. A family meeting was held with her boyfriend, with whom she lives. They discussed giving up cannabis which both of them had been smoking chronically. She hopes this will help with her lethargy and apathy. She ceased to have any suicidal thinking during her stay. Her outlook was hopeful, forward thinking. DAY OF HOSPITALIZATION: Today the patient is requesting discharge. She says that she feels remarkably better and hopes to be able to maintain this structure to her day once discharged. She continues to deny suicidal ideation. She is formulating a plan to prevent this from happening again. She will have prompt follow-up with her outpatient providers. She agrees that she will be abstaining from cannabis. Today she is casually and appropriately dressed and groomed. Gait and station are within normal limits. Eye contact is good. Affect is restricted. Speech is of normal rate volume and tone. Thoughts are organized, goal directed, and without evidence of thought disorder. Recent and remote memory are intact per conversation. Intelligence is estimated to be average. Insight and judgment are improved over admission. Laboratory Test 04/07/17 19:39 04/07/17 20:02 Urine Color YELLOW Urine Appearance CLEAR Urine pH 6.5 Urine Specific [place] 1.012 Urine Protein NEG Urine Glucose (UA) NEG Urine Ketones NEG Urine Occult Blood NEG Urine Nitrite NEG Urine Bilirubin NEG Urine Urobilinogen NEG Urine Leukocyte Esterase TRACE Urine WBC (Auto) 5-10 Urine RBC (Auto) 0-4 Urine Hyaline Casts (Auto) 0 Urine Epithelial Cells (Auto) 10-20 Urine Bacteria (Auto) NEG Urine Opiates Screen NEG Urine Methadone, Qualitative NEG Urine Barbiturates NEG Urine Phencyclidine (PCP) Level NEG Ur Amphetamine/Methamphetamine NEG MDMA (Ecstasy) Screen NEG Urine Benzodiazepines Screen NEG Urine Cocaine Metabolite NEG Urine Marijuana (THC) POS Urine Marijuana (THC Carboxy Acid) 58 White Blood Count 9.30 Red Blood Count 5.40 Hemoglobin 16.4 Hematocrit 45.8 Mean Corpuscular Volume 84.8 Mean Corpuscular Hemoglobin 30.4 Mean Corpuscular Hemoglobin Concent 35.8 Platelet Count 297 Mean Platelet Volume 11.7 Neutrophils (%) (Auto) 60.8 Lymphocytes (%) (Auto) 30.1 Monocytes (%) (Auto) 5.5 Eosinophils (%) (Auto) 3.1 Basophils (%) (Auto) 0.3 Neutrophils # (Auto) 5.65 Lymphocytes # (Auto) 2.80 Monocytes # (Auto) 0.51 Eosinophils # (Auto) 0.29 Basophils # (Auto) 0.03 RDW Standard Deviation 37.7 RDW Coefficient of Variation 12.4 Immature Granulocyte % (Auto) 0.2 Immature Granulocyte # (Auto) 0.02 Sodium Level 141 Potassium Level 3.8 Chloride Level 110 Carbon Dioxide Level 23 Anion Gap 8.0 Blood Urea Nitrogen 14 Creatinine 0.82 Est Creatinine Clear Calc Drug Dose 109.6 Estimated GFR () 116.9 Estimated GFR (Non- 100.9 BUN/Creatinine Ratio 17.0 Random Glucose 80 Calcium Level 9.2 Total Bilirubin 0.4 Direct Bilirubin < 0.1 Aspartate Amino Transferase (AST) 20 Alanine Aminotransferase (ALT) 36 Alkaline Phosphatase 81 Total Protein 7.9 Albumin 4.4 Thyroid Stimulating Hormone (TSH) 5.240 Human Chorionic Gonadotropin, Qual NEG Ethyl Alcohol mg/dL < 3.0 Total Time Total Time Spent (min): Greater than 30 minutes Total Time Included: examination of the patient, discharge planning, medication reconciliation, communication with other providers Tobacco Cessation at Discharge Smoking Status: Never Smoker FDA approved Prescription: non-smoker Problem Qualifiers (1) Depression: Depression Type: major depressive disorder Major depression recurrence: recurrent Active/Remission status: currently active Major depression episode severity: severe Psychotic features: with psychotic features Qualified Codes : F33.3 - Major depressive disorder, recurrent, severe with psychotic symptoms
== END 2017-04-12 12:57 | disposition home or self-care (01) | DRG 881 ==
LOC: C.EDB 19:05 → C.MHU 22:12
PROVIDERS: ADMIT Student in an Organized Health Care Education/Training Program; ATTEND Student in an Organized Health Care Education/Training Program
DX: F32.9 Major depressive disorder, single episode, unspecified (principal); R45.851 Suicidal ideations; F41.9 Anxiety disorder, unspecified; E03.9 Hypothyroidism, unspecified; F12.10 Cannabis abuse, uncomplicated; Z79.3 Long term (current) use of hormonal contraceptives; Z81.8 Family history of other mental and behavioral disorders

== ENCOUNTER 2017-08-18 13:10 | Inpatient (IN) | payer OTHER ==
[~2017-08-18] VITALS: Ht 162.6 cm; Wt 80.0 kg
[~2017-08-18 13:10] MED LIST changes: +LMC25 PO; +RMR15 PO
[2017-08-18] MEDS ORDERED: ATV/1 PO (13:46)
[2017-08-18 14:29] LABS: BASO % 0.4 %; BASO ABS # 0.04 K/uL (0-0.2); EOS % 1.9 %; EOS ABS # 0.18 K/uL (0-0.5); HEMATOCRIT 42.8 % (37-47); HEMOGLOBIN 15.4 g/dL (12.0-16.0); IG# 0.03 K/uL (0.00-0.02); LYMPH % 27.9 %; LYMPH ABS # 2.68 K/uL (1.2-3.4); MEAN CELL VOLUME 84.4 fL (80-100); MEAN CORPUSCULAR HEMOGLOBIN 30.4 pg (25-34); MEAN PLATELET VOLUME 11.3 fL (7.4-10.4); MONO % 4.7 %; MONO ABS # 0.45 K/uL (0.11-0.59); NEUT % 64.8 %; NEUT ABS # 6.23 K/uL (1.4-6.5); PLATELET COUNT 294 K/uL (130-400); RED CELL DISTRIBUTION WIDTH CV 12.7 % (11.5-14.5); RED CELL DISTRIBUTION WIDTH SD 38.3 fL (36.4-46.3); WHITE BLOOD COUNT 9.61 K/uL (4.8-10.8)
[2017-08-18 14:37] LABS: ALBUMIN 4.2 gm/dl (3.4-5.0); CREATININE 0.82 mg/dl (0.60-1.20); POTASSIUM 3.7 mmol/L (3.5-5.1)
[2017-08-18 16:58] VITALS: O2SAT 97
--- NOTE | 2017-08-18 17:25 | EMERGENCY ROOM VISIT NOTE ---
History Report prepared by Denzel: Nishi Mancia Under the Supervision of: Dr. Eris Leblanc D.O. First contact with patient: 13:13 Chief Complaint: MENTAL HEALTH EVALUATION Stated Complaint: DEPRESSION, SUICIDAL IDEATIONS History of Present Illness The patient is a 22 year old female who presents to the Emergency Room for a mental health evaluation. The patient reports worsening anxiety and depression beginning a couple weeks ago. The patient has a history of anxiety and depression. She states she has a "general feeling that I want to be ". She denies any suicidal plan. The patient states she has not been sleeping well over the past week. She states she is a intermediate frame tender marijuana user and notes that she recently quit. She reports some "withdrawal" symptoms. She denies any other drug or alcohol use. Pt denies headache, change in vision, fevers, chest pain, shortness of breath, nausea, vomiting, diarrhea, pain with urination, and melena. Source of History: patient Onset: couple weeks ago Position: other (generalized) Quality: other (mental heal evaluation) Associated Symptoms: No SOB, No nausea, No vomiting, No diarrhea, No urinary symptoms Review of Systems See HPI for pertinent positives & negatives. A total of 10 systems reviewed and were otherwise negative. Past Medical & Surgical Medical Problems: (1) Anxiety (2) Depression (3) Hypothyroid (4) Marijuana use, continuous Family History Patient reports no known family medical history. Social History Smoking Status: Never Smoker Marital Status: in relationship Occupation Status: employed Current/Historical Medications Scheduled Control Pills ( Control Pills), 1 TAB PO HS Scheduled PRN Lorazepam (Ativan), 1 MG PO DAILY PRN for Anxiety Allergies Coded Allergies: Adhesives (Unverified Allergy, Unknown, RASH, 08/18/17) Aripiprazole (Unverified Allergy, Unknown, NAUSEA/VOMITING, 08/18/17) Nickel (Unverified Allergy, Unknown, RASH, 08/18/17) Physical Exam Vital Signs Date Time Temp Pulse Resp B/P (MAP) Pulse Ox O2 Delivery O2 Flow Rate FiO2 08/18/17 16:58 77 18 120/73 97 Room Air 08/18/17 13:13 36.8 90 20 142/84 98 Room Air Physical Exam GENERAL: Sitting up in bed, alert, well appearing, well nourished, no distress, non-toxic EYE EXAM: normal conjunctiva. OROPHARYNX: no exudate, no erythema, lips, buccal mucosa, and tongue normal and mucous membranes are moist NECK: supple, no nuchal rigidity, no adenopathy, non-tender LUNGS: Clear to auscultation. Normal chest wall mechanics HEART: no murmurs, S1 normal and S2 normal ABDOMEN: abdomen soft, non-tender, normo-active bowel sounds, no masses, no rebound or guarding. SKIN: no rashes and no bruising UPPER EXTREMITIES: upper extremities are grossly normal. LOWER EXTREMITIES: No pitting edema. NEURO EXAM: Normal sensorium, cranial nerves II-XII grossly intact, normal speech, no gross weakness of arms, no gross weakness of legs. Gross sensation intact. PSYCH: denies current suicidal plan, admits to wanting to be Medical Decision & Procedures Laboratory Results 08/18/17 13:51 Red Blood Count 5.07, Mean Corpuscular Volume 84.4, Mean Corpuscular Hemoglobin 30.4, Mean Corpuscular Hemoglobin Concent 36.0, Mean Platelet Volume 11.3, Neutrophils (%) (Auto) 64.8, Lymphocytes (%) (Auto) 27.9, Monocytes (%) (Auto) 4.7, Eosinophils (%) (Auto) 1.9, Basophils (%) (Auto) 0.4, Neutrophils # (Auto) 6.23, Lymphocytes # (Auto) 2.68, Monocytes # (Auto) 0.45, Eosinophils # (Auto) 0.18, Basophils # (Auto) 0.04 08/18/17 13:51 Test 08/18/17 13:51 08/18/17 14:55 08/18/17 15:06 White Blood Count 9.61 K/uL (4.8-10.8) Red Blood Count 5.07 M/uL (4.2-5.4) Hemoglobin 15.4 g/dL (12.0-16.0) Hematocrit 42.8 % (37-47) Mean Corpuscular Volume 84.4 fL (80-100) Mean Corpuscular Hemoglobin 30.4 pg (25-34) Mean Corpuscular Hemoglobin Concent 36.0 g/dl (32-36) Platelet Count 294 K/uL (130-400) Mean Platelet Volume 11.3 fL (7.4-10.4) Neutrophils (%) (Auto) 64.8 % Lymphocytes (%) (Auto) 27.9 % Monocytes (%) (Auto) 4.7 % Eosinophils (%) (Auto) 1.9 % Basophils (%) (Auto) 0.4 % Neutrophils # (Auto) 6.23 K/uL (1.4-6.5) Lymphocytes # (Auto) 2.68 K/uL (1.2-3.4) Monocytes # (Auto) 0.45 K/uL (0.11-0.59) Eosinophils # (Auto) 0.18 K/uL (0-0.5) Basophils # (Auto) 0.04 K/uL (0-0.2) RDW Standard Deviation 38.3 fL (36.4-46.3) RDW Coefficient of Variation 12.7 % (11.5-14.5) Immature Granulocyte % (Auto) 0.3 % Immature Granulocyte # (Auto) 0.03 K/uL (0.00-0.02) Anion Gap 9.0 mmol/L (3-11) Est Creatinine Clear Calc Drug Dose 108.3 ml/min Estimated GFR () 116.1 Estimated GFR (Non- 100.2 BUN/Creatinine Ratio 15.1 (10-20) Calcium Level 9.0 mg/dl (8.5-10.1) Total Bilirubin 0.8 mg/dl (0.2-1) Direct Bilirubin 0.2 mg/dl (0-0.2) Aspartate Amino Transf (AST/SGOT) 15 U/L (15-37) Alanine Aminotransferase (ALT/SGPT) 31 U/L (12-78) Alkaline Phosphatase 74 U/L (45-117) Total Protein 8.0 gm/dl (6.4-8.2) Albumin 4.2 gm/dl (3.4-5.0) Thyroid Stimulating Hormone (TSH) 1.840 uIu/ml (0.300-4.500) Ethyl Alcohol mg/dL < 3.0 mg/dl (0-3) Urine Color YELLOW Urine Appearance CLEAR (CLEAR) Urine pH 6.0 (4.5-7.5) Urine Specific Philip 1.018 (1.000-1.030) Urine Protein NEG (NEG) Urine Glucose (UA) NEG (NEG) Urine Ketones 1+ (NEG) Urine Occult Blood NEG (NEG) Urine Nitrite NEG (NEG) Urine Bilirubin NEG (NEG) Urine Urobilinogen NEG (NEG) Urine Leukocyte Esterase MODERATE (NEG) Urine WBC (Auto) 5-10 /hpf (0-5) Urine RBC (Auto) 0-4 /hpf (0-4) Urine Hyaline Casts (Auto) 1-5 /lpf (0-5) Urine Epithelial Cells (Auto) >30 /lpf (0-5) Urine Bacteria (Auto) NEG (NEG) Urine Opiates Screen NEG (NEG) Urine Methadone, Qualitative NEG (NEG) Urine Barbiturates NEG (NEG) Urine Phencyclidine (PCP) Level NEG (NEG) Ur Amphetamine/Methamphetamine NEG (NEG) MDMA (Ecstasy) Screen NEG (NEG) Urine Benzodiazepines Screen NEG (NEG) Urine Cocaine Metabolite NEG (NEG) Urine Marijuana (THC) POS (NEG) Urine Test NEG (NEG) Laboratory results per my review. ED Course ED COURSE: Vital signs were reviewed and showed normal The patients medical record was reviewed The above diagnostic studies were performed and reviewed. ED treatments and interventions as stated above. 1317: The patient was evaluated in room A6. A complete history and physical examination was performed. 1710: The patient was accepted to [facility]. 1715: Upon reevaluation, the patient is resting.I discussed my findings with the patient and she understands and agrees with the treatment plan. Based on the patients age, coexisting illnesses, exam and lab findings the decision to treat as an inpatient was made. The patient remained stable while under my care. The patient will be evaluated for further management. Medical Decision Differential diagnosis: Etiologies such as mood disorder, infection, hypoglycemia, electrolyte abnormalities, cardiac sources, intracerebral event, toxicologic, neurologic, as well as others were entertained. Patient is a 22-year-old female who presents the ER for depression and feeling as though she is worthless. She notes that she does not want to live. She has no clear plan to kill herself. She is not sleeping or eating. CBC along with BMP, LFTs, bilirubin and TSH was remarkable for a CO2 of 20 otherwise negative. Alcohol negative. Marijuana positive as admitted. UA with greater than 30 epithelial cells. She has no urinary symptoms. is negative. She is evaluated by psychiatry. She was admitted to [facility]. Medication Reconcilliation Current Medication List: was personally reviewed by me Blood Pressure Screening Patient's blood pressure: Normal blood pressure Impression Primary Impression: Mood disorder Additional Impression: Suicidal thoughts Scribe Attestation The scribe's documentation has been prepared under my direction and personally reviewed by me in its entirety. I confirm that the note above accurately reflects all work, treatment, procedures, and medical decision making performed by me. Departure Information Dispostion Admitted as an inpatient Referrals Fabien Tamayo MD (PCP) Patient Instructions My [facility] Problem Qualifiers
[2017-08-18 18:45] VITALS: BP 120/73; PULSE 77; TEMP 36.8; BMI 30.3
[2017-08-18] MEDS ORDERED: hydrOXYzine HCL 25 MG TAB PO PRN (20:15)
[2017-08-18] MEDS ORDERED: ACETAMINOPHEN 325 MG TAB PO PRN (20:15)
[2017-08-18] MEDS ORDERED: MAGNESIUM HYDROXIDE SUSP 30 ML UDC PO PRN (20:15)
[2017-08-18] MEDS ORDERED: BISMUTH SUBSALICYLATE PER ML OMNICELL CHARGE PO PRN (20:15)
[2017-08-18] MEDS ORDERED: ALUMINUM/MAGNESIUM SUSP 30 ML UDC PO PRN (20:15)
[2017-08-18] MEDS ORDERED: SODIUM CHLORIDE 0.65% NA SOLN 45 ML (OCEAN) PRN (20:15)
[2017-08-19 06:39] VITALS: BP_SYST 111; BP_SYST 119; BP_DIAS 72; BP_DIAS 80; PULSE 69; PULSE 91; TEMP 36.9
[2017-08-19 06:56] VITALS: Ht 162.6 cm; Wt 80.0 kg
--- NOTE | 2017-08-19 09:39 | Psych Management Progress Note ---
Psychiatry Miscellaneous Date of Service: Aug 19, 2017. Patient seen, MS assessed. Rates mood as calmer since here. Encouraged cooperation with care and treatment plan as outlined by allied health prescriber. I personally participated in the medical decision making outlined in her H&P by January Oconnor PA-C.
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
[2017-08-19] MEDS: FLUVOXAMINE MALEATE 50 MG TAB PO SCH (21:32)
[2017-08-19] MEDS: NORGESTREL PO SCH (21:41)
[2017-08-19] MEDS: ETHINYL ESTRADIOL PO SCH (21:41)
[2017-08-19] MEDS: hydrOXYzine HCL 25 MG TAB PO PRN (23:37)
[2017-08-20 06:36] VITALS: BP_SYST 139; BP_SYST 140; BP_DIAS 93; BP_DIAS 96; PULSE 89; PULSE 99; TEMP 36.9
[2017-08-20] MEDS ORDERED: ONDANSETRON 4MG OD TAB PO PRN (07:45)
[2017-08-20] MEDS: NORGESTREL PO SCH (08:23)
[2017-08-20] MEDS: ETHINYL ESTRADIOL PO SCH (08:23)
--- NOTE | 2017-08-20 09:42 | Psychiatric Progress Notes ---
Progress Note Date of Service Aug 20, 2017. Interval History 22-year-old female presenting with worsening depressive symptoms and anxiety. Pt reports passive SI which has become more concerning to her in the last week. Chief Complaint "A little better". Subjective Patient was seen & assessed interval progress reviewed with Treatment Team. Nursing reports that the patient developed nausea over the evening and night, unrelieved by simple measures. Was provided with Zofran this morning with relief. The patient says her mood is a little better today compared to prior to admission. She attributes this to the fact that she is removed from her stressors and able to focus on the present. She continues to have racing worried thoughts at bedtime which also interfere with her sleep. She asked for Vistaril when necessary. She says she has a tendency to dwell on negative things from her past, forgetting the positive things. She is able to say when asked, that she believes that she is "resilient", is a survivor and sees this hospitalization as a good decision on her part. She has touched base on mindfulness techniques with Dr. wilkerson in the past, but has not really been able to use her practice them. We review a simple grounding exercise during our visit. She denies that she has had a nausea reaction to Luvox when she was on it in the past. Although she says she feels somewhat better today, she knows that she is not near baseline and has a lot of work yet to do. She denies acute suicidal ideation today. Review of Systems Constitutional: + fatigue ENT: No hearing loss, No unusual epistaxis, No nasal symptoms, No sore throat, No tinnitus, No dental problems, No trouble swallowing, No problem reported Respiratory: No cough, No sputum, No wheezing, No shortness of breath, No dyspnea on exertion, No dyspnea at rest, No hemoptysis, No problem reported Cardiovascular: No chest pain, No orthopnea, No PND, No edema, No claudication , No palpitations, No problem reported Abdomen: + nausea Musculoskeletal: No joint pain, No muscle pain, No swelling, No calf pain, No problem reported Neurologic: No memory loss, No paralysis, No weakness, No numbness/tingling, No vertigo, No balance problems, No problem reported Psychiatric: + depression symptoms Integumentary: No rash, No itch, No new/changing skin lesions, No color change , No bleeding, No problem reported Sleep Information Total Hours of Sleep: 4.75 Meal Information Percent of Breakfast Consumed: 50 Percent of Lunch Consumed: 100 Percent of Dinner Consumed: 90 Mental Status Exam During interview pt is: alert and oriented, cooperative Appearance: appropriately dressed (in t-shirt and scrub pants, nose piercing), appropriately groomed Eye contact is: good Motor behavior is: steady gait & station, no abnormal motor movements Speech: normal in rate, rhythm & volume Affect: depressed, blunted Mood is: depressed, anxious Thought process: goal directed, linear, logical, clear, coherent Thought content: reality based without delusions, hopelessness, worthlessness Suicidal thought are: present (passive SI; thoughts of what it would be like if she weren't around.), Plan: present ("I always have a backup plan that I could overdose if I wanted"), Intent: denied Hallucinations: denies auditory, denies visual Cognition: memory grossly intact, attention grossly intact, language grossly intact Intelligence estimated to be: consistent with level of education Insight: limited Judgement: limited Impression Adjusting to the support and structure of the milieu. Developed nausea overnight, relieved with Zofran. Denies she has had this reaction to Luvox in the past but will leave dosage the same today and consider reducing to 25 if she continues with nausea when Zofran wears off. We will need to have family meeting. Plan (1) Suicidal thoughts 08/19 - The patient is admitted to [facility] ([facility]) on q 15 min checks (behavioral with suicide precautions) for safety. The patient will participate in group, recreational and milieu therapies and will be offered additional individual and family sessions as clinically appropriate. - Reports passive SI recently, but has become more concerning. "Back up plan " to overdose, but no acts of furtherance or intent. (2) Mood disorder 08/19 - Lamotrigine 25mg, to titrate to previous 200mg dose. - Fluvoxamine 50mg qHS - Encourage participation in group programing, including group and recreational therapy - Encourage family meeting with boyfriend or other identified supports - Coordination of care with outpatient providers 08/20 -Continue current medications - Zofran when necessary nausea (3) Marijuana use, continuous Brief intervention was offered and accepted in regard to patient's chronic cannabis use. She reports quitting as of Monday08/14/17, but has struggled with regard to success of this decision in the past. Intervention was greater than 5 min in length. Brief interventions include: 1. Assess Readiness to Quit, 2. Advise: Help Patient to Reduce or Abstain from Alcohol, 3. Agree: Set Specific, Feasible Goals, 4. Assist: Anticipate barriers, Problem-Solving Solutions. Social work to 5. Arrange: Referrals to appropriate treatment. Summary of intervention: The patient is in determination/action stages with regards to transtheoretical model of change as she has been committed to abstinence for the past few days. The patient is advised to eliminate cannabis use as effects from these substance can alter thought process and make treatment of mental health conditions more difficult. The patient agreed to referral for outpatient counseling for cannabis abuse and will plan to provide aftercare with regard to these supports at discharge. Dr. Kennedy has personally been involved in the review of the above case and development of recommendations. Discharge / Aftercare Planning Primary Care Physician: Name: Dr Roni Jay [facility] Psychiatrist: Name: Dr. Oliver Therapist: Name: Von Mariano Directional Survey Drafter: Name: None Visit Code E&M Code: 54385 Inventory Assets Strengths: willingness for treatment, outpatient providers in place, intelligence Needs: assistance with abstaining from marijuana; restart of psychiatric medications Risk Factors Assessment : Yes /single/: Yes Health problems: No Mental Health Diagnoses: Yes Substance use disorders: Yes (marijuana) Previous attempt: No Previous psychiatric stay: Yes Hopelessness: Yes Smoker: No Protective Factors Assessment Moravian beliefs: No : No Responsible for young children: No Employed: Yes Stable relationships: Yes Supportive family: Yes Good rapport with provider: Yes Data Vital Signs Last 24 Hrs: Date Time Temp Pulse Resp B/P (MAP) Pulse Ox O2 Delivery O2 Flow Rate FiO2 08/20/17 06:36 36.9 99 18 139/93 89 140/96 Meds Administered Last 24 Hrs: Meds Administered (Past 24Hrs) Medications (Trade) Dose Ordered Sig/Deanna Route Start Time Stop Time Status Last Admin Dose Admin Hydroxyzine HCl (Vistaril Tab) 50 mg HSZ PRN PO 08/18/17 20:15 09/17/17 20:14 08/19/17 23:37 50 MG Fluvoxamine Maleate (Luvox Tab) 50 mg HS PO 08/19/17 22:00 09/18/17 21:59 08/19/17 21:32 50 MG Lamotrigine (Lamictal Tab) 25 mg HS PO 08/19/17 22:00 09/18/17 21:59 08/19/17 21:32 25 MG Ethinyl Estradiol/ Norgestrel (Cryselle 28 Day 0.3/0.03MG) 1 tab DAILY PO 08/20/17 09:00 09/19/17 08:59 08/19/17 21:41 1 TAB Ondansetron HCl (Zofran Odt) 4 mg Q8H PRN PO 08/20/17 07:45 09/19/17 07:44 08/20/17 08:20 4 MG Lab Results Last 24 Hrs: 08/18/17 13:51 Red Blood Count 5.07, Mean Corpuscular Volume 84.4, Mean Corpuscular Hemoglobin 30.4, Mean Corpuscular Hemoglobin Concent 36.0, Mean Platelet Volume 11.3, Neutrophils (%) (Auto) 64.8, Lymphocytes (%) (Auto) 27.9, Monocytes (%) (Auto) 4.7, Eosinophils (%) (Auto) 1.9, Basophils (%) (Auto) 0.4, Neutrophils # (Auto) 6.23, Lymphocytes # (Auto) 2.68, Monocytes # (Auto) 0.45, Eosinophils # (Auto) 0.18, Basophils # (Auto) 0.04 08/18/17 13:51 Test 08/18/17 13:51 08/18/17 14:55 08/18/17 15:06 White Blood Count 9.61 K/uL (4.8-10.8) Red Blood Count 5.07 M/uL (4.2-5.4) Hemoglobin 15.4 g/dL (12.0-16.0) Hematocrit 42.8 % (37-47) Mean Corpuscular Volume 84.4 fL (80-100) Mean Corpuscular Hemoglobin 30.4 pg (25-34) Mean Corpuscular Hemoglobin Concent 36.0 g/dl (32-36) Platelet Count 294 K/uL (130-400) Mean Platelet Volume 11.3 fL (7.4-10.4) Neutrophils (%) (Auto) 64.8 % Lymphocytes (%) (Auto) 27.9 % Monocytes (%) (Auto) 4.7 % Eosinophils (%) (Auto) 1.9 % Basophils (%) (Auto) 0.4 % Neutrophils # (Auto) 6.23 K/uL (1.4-6.5) Lymphocytes # (Auto) 2.68 K/uL (1.2-3.4) Monocytes # (Auto) 0.45 K/uL (0.11-0.59) Eosinophils # (Auto) 0.18 K/uL (0-0.5) Basophils # (Auto) 0.04 K/uL (0-0.2) RDW Standard Deviation 38.3 fL (36.4-46.3) RDW Coefficient of Variation 12.7 % (11.5-14.5) Immature Granulocyte % (Auto) 0.3 % Immature Granulocyte # (Auto) 0.03 K/uL (0.00-0.02) Anion Gap 9.0 mmol/L (3-11) Est Creatinine Clear Calc Drug Dose 108.3 ml/min Estimated GFR () 116.1 Estimated GFR (Non- 100.2 BUN/Creatinine Ratio 15.1 (10-20) Calcium Level 9.0 mg/dl (8.5-10.1) Total Bilirubin 0.8 mg/dl (0.2-1) Direct Bilirubin 0.2 mg/dl (0-0.2) Aspartate Amino Transf (AST/SGOT) 15 U/L (15-37) Alanine Aminotransferase (ALT/SGPT) 31 U/L (12-78) Alkaline Phosphatase 74 U/L (45-117) Total Protein 8.0 gm/dl (6.4-8.2) Albumin 4.2 gm/dl (3.4-5.0) Thyroid Stimulating Hormone (TSH) 1.840 uIu/ml (0.300-4.500) Ethyl Alcohol mg/dL < 3.0 mg/dl (0-3) Urine Color YELLOW Urine Appearance CLEAR (CLEAR) Urine pH 6.0 (4.5-7.5) Urine Specific [place] 1.018 (1.000-1.030) Urine Protein NEG (NEG) Urine Glucose (UA) NEG (NEG) Urine Ketones 1+ (NEG) Urine Occult Blood NEG (NEG) Urine Nitrite NEG (NEG) Urine Bilirubin NEG (NEG) Urine Urobilinogen NEG (NEG) Urine Leukocyte Esterase MODERATE (NEG) Urine WBC (Auto) 5-10 /hpf (0-5) Urine RBC (Auto) 0-4 /hpf (0-4) Urine Hyaline Casts (Auto) 1-5 /lpf (0-5) Urine Epithelial Cells (Auto) >30 /lpf (0-5) Urine Bacteria (Auto) NEG (NEG) Urine Opiates Screen NEG (NEG) Urine Methadone, Qualitative NEG (NEG) Urine Barbiturates NEG (NEG) Urine Phencyclidine (PCP) Level NEG (NEG) Ur Amphetamine/Methamphetamine NEG (NEG) MDMA (Ecstasy) Screen NEG (NEG) Urine Benzodiazepines Screen NEG (NEG) Urine Cocaine Metabolite NEG (NEG) Urine Marijuana (THC) POS (NEG) Urine Test NEG (NEG)
[2017-08-20] MEDS: hydrOXYzine HCL 25 MG TAB PO PRN (22:06)
[2017-08-20] MEDS: FLUVOXAMINE MALEATE 50 MG TAB PO SCH (22:06)
[2017-08-21 06:50] VITALS: BP_SYST 100; BP_SYST 114; BP_DIAS 63; BP_DIAS 80; PULSE 64; PULSE 82; TEMP 36.9
[2017-08-21] MEDS: NORGESTREL PO SCH (08:13)
[2017-08-21] MEDS: ETHINYL ESTRADIOL PO SCH (08:13)
--- NOTE | 2017-08-21 11:07 | Psych Management Progress Note ---
Psychiatry Miscellaneous Date of Service: Aug 21, 2017. Patient seen, MS assessed. Rates mood as improving, nausea improved and able to eat breakfast. Encouraged cooperation with care and treatment plan as outlined by allied health prescriber.
--- NOTE | 2017-08-21 11:44 | Psychiatric Progress Notes ---
Progress Note Date of Service Aug 21, 2017. Interval History 22-year-old female presenting with worsening depressive symptoms and anxiety. Pt reports passive SI which has become more concerning to her in the last week. Chief Complaint "I'm doing pretty good, my mood is coming back up"". Subjective Patient was seen & assessed interval progress reviewed with Treatment Team. Patient feels mood is "up" though still depressed. Denies patricia or psychosis. She voices chronic passive SI but denies plan or intent. Reports low self esteem is an issue. Doesn't really know why she stopped her meds or stopped seeing Dr. Angelo. Reports good relationship with Dr. Angelo. Would like to see her as an OP. Going to groups. Safety plan in early stages. Remembers her prior safety plan from before. Feels groups are helpful. Feels support on unit. Voices being loved and with support by family. She is eating well. Sleeping well due to HS Vistaril. Does not feel overly anxious. Doing ADL's. Review of Systems Psych: denies symptoms other than stated above Constitutional: denied Cardiovascular: denied GI: denied Neurologic: denied Remainder of 10 body systems also reviewed and denied other than noted above. Sleep Information Total Hours of Sleep: 6.50 Meal Information Percent of Breakfast Consumed: 100 Percent of Lunch Consumed: 80 Percent of Dinner Consumed: 100 Mental Status Exam During interview pt is: alert and oriented, cooperative Appearance: appropriately dressed (in t-shirt and scrub pants, nose piercing), appropriately groomed Eye contact is: good Motor behavior is: steady gait & station, no abnormal motor movements Speech: normal in rate, rhythm & volume Affect: depressed Mood is: depressed Thought process: goal directed, linear, logical, clear, coherent Thought content: reality based without delusions, worthlessness Suicidal thought are: present (passive SI; thoughts of what it would be like if she weren't around.), Plan: present ("I always have a backup plan that I could overdose if I wanted"), Intent: denied Hallucinations: denies auditory, denies visual Cognition: memory grossly intact, attention grossly intact, language grossly intact Intelligence estimated to be: consistent with level of education Insight: limited (improving over time) Judgement: limited (improving over time) Impression Adjusting to the support and structure of the milieu. Developed nausea overnight, relieved with Zofran. Denies she has had this reaction to Luvox in the past but will leave dosage the same today and consider reducing to 25 if she continues with nausea when Zofran wears off. We will need to have family meeting. Plan (1) Suicidal thoughts 08/19 - The patient is admitted to [facility] ([facility]) on q 15 min checks (behavioral with suicide precautions) for safety. The patient will participate in group, recreational and milieu therapies and will be offered additional individual and family sessions as clinically appropriate. - Reports passive SI recently, but has become more concerning. "Back up plan " to overdose, but no acts of furtherance or intent. 08/21 Patient feels mood is getting better moving more to upbeat than down. Still with passive SI but no plan or intent. Describes passive SI - "if someone did it for me". States passive SI is chronic for her and due to low self esteem. Continue q 15 min checks. Continue groups. Work on safety plan. (2) Mood disorder 08/19 - Lamotrigine 25mg, to titrate to previous 200mg dose. - Fluvoxamine 50mg qHS - Encourage participation in group programing, including group and recreational therapy - Encourage family meeting with boyfriend or other identified supports - Coordination of care with outpatient providers 08/20 -Continue current medications - Zofran when necessary nausea 08/21 - Continue current Lamictal treatment plan. - Increase Luvox to 75 mg HS. Plan is to titrate to 100mg. - Continue groups, formulate safety plan. (3) Marijuana use, continuous Brief intervention was offered and accepted in regard to patient's chronic cannabis use. She reports quitting as of Monday08/14/17, but has struggled with regard to success of this decision in the past. Intervention was greater than 5 min in length. Brief interventions include: 1. Assess Readiness to Quit, 2. Advise: Help Patient to Reduce or Abstain from Alcohol, 3. Agree: Set Specific, Feasible Goals, 4. Assist: Anticipate barriers, Problem-Solving Solutions. Social work to 5. Arrange: Referrals to appropriate treatment. Summary of intervention: The patient is in determination/action stages with regards to transtheoretical model of change as she has been committed to abstinence for the past few days. The patient is advised to eliminate cannabis use as effects from these substance can alter thought process and make treatment of mental health conditions more difficult. The patient agreed to referral for outpatient counseling for cannabis abuse and will plan to provide aftercare with regard to these supports at discharge. Dr. Kennedy has personally been involved in the review of the above case and development of recommendations. Discharge / Aftercare Planning Primary Care Physician: Name: Dr Roni Jay [facility] Appointment Notes: appointment scheduled as needed Psychiatrist: Name: Dr. Oliver Date of Appointment: Aug 31, 2017 Time of Appointment: 8:40 am Appointment Notes: [address], [place] [address] Therapist: Name: Von Mariano Date of Appointment: Aug 29, 2017 Time of Appointment: 1:00 pm Appointment Notes: [address], [place] [address] Well Flow Operator: Name: None Visit Code E&M Code: 53511 Inventory Assets Strengths: willingness for treatment, outpatient providers in place, intelligence Needs: assistance with abstaining from marijuana; restart of psychiatric medications Risk Factors Assessment : Yes /single/: Yes Health problems: No Mental Health Diagnoses: Yes Substance use disorders: Yes (marijuana) Previous attempt: No Previous psychiatric stay: Yes Hopelessness: Yes Smoker: No Protective Factors Assessment Hinduism beliefs: No : No Responsible for young children: No Employed: Yes Stable relationships: Yes Supportive family: Yes Good rapport with provider: Yes Data Vital Signs Last 24 Hrs: Date Time Temp Pulse Resp B/P (MAP) Pulse Ox O2 Delivery O2 Flow Rate FiO2 08/21/17 06:50 36.9 64 16 100/63 82 114/80 Meds Administered Last 24 Hrs: Meds Administered (Past 24Hrs) Medications (Trade) Dose Ordered Sig/Deanna Route Start Time Stop Time Status Last Admin Dose Admin Fluvoxamine Maleate (Luvox Tab) 50 mg HS PO 08/19/17 22:00 09/18/17 21:59 08/20/17 22:06 50 MG Lamotrigine (Lamictal Tab) 25 mg HS PO 08/19/17 22:00 09/18/17 21:59 08/20/17 22:06 25 MG Ethinyl Estradiol/ Norgestrel (Cryselle 28 Day 0.3/0.03MG) 1 tab DAILY PO 08/20/17 09:00 09/19/17 08:59 08/19/17 21:41 1 TAB Ondansetron HCl (Zofran Odt) 4 mg Q8H PRN PO 08/20/17 07:45 09/19/17 07:44 08/20/17 08:20 4 MG
[2017-08-21] MEDS: hydrOXYzine HCL 25 MG TAB PO PRN (21:16)
[2017-08-21] MEDS: FLUVOXAMINE MALEATE 50 MG TAB PO SCH (21:16)
[2017-08-22 06:57] VITALS: BP_SYST 109; BP_SYST 111; BP_DIAS 67; BP_DIAS 73; PULSE 53; PULSE 97; TEMP 36.4
[2017-08-22] MEDS: NORGESTREL PO SCH (07:37)
[2017-08-22] MEDS: ETHINYL ESTRADIOL PO SCH (07:37)
--- NOTE | 2017-08-22 09:48 | Psychiatric Progress Notes ---
Progress Note Date of Service Aug 22, 2017. Interval History 22-year-old female presenting with worsening depressive symptoms and anxiety. Pt reports passive SI which has become more concerning to her in the last week. Chief Complaint "Yesterday was the best day so far. ". Subjective Patient was seen & assessed interval progress reviewed with Treatment Team. The patient says that she has been working hard "on myself". She recognizes that she has low self esteem and trying to work on that. For example, last night at bedtime she was worrying that her boyfriend Everette would leave her like everyone else in her life, despite the fact that she has no indications that he would. As a matter of fact, he came to the family meeting yesterday and "has been my biggest cheerleader". Her worrying is still interfering with her sleep despite taking prn vistaril. She denies any further nausea and tolerating the increase to Luvox. She has asked her boyfriend to help hold her accountable to taking her medications. She plans to use a pill box so she can see if she has taken them and her boyfriend will ask her as well, since stopping her meds by herself has been a problem in the past. Review of Systems Constitutional: + fatigue ENT: No hearing loss, No unusual epistaxis, No nasal symptoms, No sore throat, No tinnitus, No dental problems, No trouble swallowing, No problem reported Respiratory: No cough, No sputum, No wheezing, No shortness of breath, No dyspnea on exertion, No dyspnea at rest, No hemoptysis, No problem reported Cardiovascular: No chest pain, No orthopnea, No PND, No edema, No claudication , No palpitations, No problem reported Abdomen: No pain, No nausea, No vomiting, No diarrhea, No constipation, No GI bleeding, No problem reported Musculoskeletal: No joint pain, No muscle pain, No swelling, No calf pain, No problem reported Neurologic: No memory loss, No paralysis, No weakness, No numbness/tingling, No vertigo, No balance problems, No problem reported Psychiatric: + depression symptoms, + anxiety, + insomnia Integumentary: No rash, No itch, No new/changing skin lesions, No color change , No bleeding, No problem reported Sleep Information Total Hours of Sleep: 6.50 Meal Information Percent of Breakfast Consumed: 100 Percent of Lunch Consumed: 100 Percent of Dinner Consumed: 100 Mental Status Exam During interview pt is: alert and oriented, cooperative Appearance: appropriately dressed (in t-shirt and scrub pants, nose piercing), appropriately groomed Eye contact is: good Motor behavior is: steady gait & station, no abnormal motor movements Speech: normal in rate, rhythm & volume Affect: depressed Mood is: depressed Thought process: goal directed, linear, logical, clear, coherent Thought content: reality based without delusions, worthlessness Suicidal thought are: present (passive SI; thoughts of what it would be like if she weren't around.), Plan: present ("I always have a backup plan that I could overdose if I wanted"), Intent: denied Hallucinations: denies auditory, denies visual Cognition: memory grossly intact, attention grossly intact, language grossly intact Intelligence estimated to be: consistent with level of education Insight: limited Judgement: limited Impression Continues to work hard on addressing her identified issues. Tolerated Luvox 75, so will increase to 100 mg tonight to target mood and sleep. Plan (1) Suicidal thoughts 08/19 - The patient is admitted to [facility] ([facility]) on q 15 min checks (behavioral with suicide precautions) for safety. The patient will participate in group, recreational and milieu therapies and will be offered additional individual and family sessions as clinically appropriate. - Reports passive SI recently, but has become more concerning. "Back up plan " to overdose, but no acts of furtherance or intent. 08/21 Patient feels mood is getting better moving more to upbeat than down. Still with passive SI but no plan or intent. Describes passive SI - "if someone did it for me". States passive SI is chronic for her and due to low self esteem. Continue q 15 min checks. Continue groups. Work on safety plan. (2) Mood disorder 08/19 - Lamotrigine 25mg, to titrate to previous 200mg dose. - Fluvoxamine 50mg qHS - Encourage participation in group programing, including group and recreational therapy - Encourage family meeting with boyfriend or other identified supports - Coordination of care with outpatient providers 08/20 -Continue current medications - Zofran when necessary nausea 08/21 - Continue current Lamictal treatment plan. - Increase Luvox to 75 mg HS. Plan is to titrate to 100mg. - Continue groups, formulate safety plan. 08/22 - Increase Luvox to 100 mg. HS (3) Marijuana use, continuous Brief intervention was offered and accepted in regard to patient's chronic cannabis use. She reports quitting as of Monday08/14/17, but has struggled with regard to success of this decision in the past. Intervention was greater than 5 min in length. Brief interventions include: 1. Assess Readiness to Quit, 2. Advise: Help Patient to Reduce or Abstain from Alcohol, 3. Agree: Set Specific, Feasible Goals, 4. Assist: Anticipate barriers, Problem-Solving Solutions. Social work to 5. Arrange: Referrals to appropriate treatment. Summary of intervention: The patient is in determination/action stages with regards to transtheoretical model of change as she has been committed to abstinence for the past few days. The patient is advised to eliminate cannabis use as effects from these substance can alter thought process and make treatment of mental health conditions more difficult. The patient agreed to referral for outpatient counseling for cannabis abuse and will plan to provide aftercare with regard to these supports at discharge. Dr. Kennedy has personally been involved in the review of the above case and development of recommendations. Discharge / Aftercare Planning Primary Care Physician: Name: Dr Tamayo [facility] Appointment Notes: appointment scheduled as needed Psychiatrist: Name: Dr. Oliver Date of Appointment: Aug 31, 2017 Time of Appointment: 8:40 am Appointment Notes: [address], [facility] [address] Therapist: Name: Von Mariano Date of Appointment: Aug 29, 2017 Time of Appointment: 1:00 pm Appointment Notes: [address], [facility] [address] Note Teller: Name: None Other: Name of Appointment #1: [facility] Date of Appointment #1: Aug 30, 2017 Time of Appointment #1: 9:30 am Appointment #1 Notes: [address] [facility] [address] Visit Code E&M Code: 32041 Inventory Assets Strengths: willingness for treatment, outpatient providers in place, intelligence Needs: assistance with abstaining from marijuana; restart of psychiatric medications Risk Factors Assessment : Yes /single/: Yes Health problems: No Mental Health Diagnoses: Yes Substance use disorders: Yes (marijuana) Previous attempt: No Previous psychiatric stay: Yes Hopelessness: Yes Smoker: No Protective Factors Assessment Yazidi beliefs: No : No Responsible for young children: No Employed: Yes Stable relationships: Yes Supportive family: Yes Good rapport with provider: Yes Data Vital Signs Last 24 Hrs: Date Time Temp Pulse Resp B/P (MAP) Pulse Ox O2 Delivery O2 Flow Rate FiO2 08/22/17 06:57 36.4 53 16 109/67 97 111/73 Meds Administered Last 24 Hrs: Meds Administered (Past 24Hrs) Medications (Trade) Dose Ordered Sig/Deanna Route Start Time Stop Time Status Last Admin Dose Admin Fluvoxamine Maleate (Luvox Tab) 75 mg HS PO 08/21/17 22:00 09/18/17 21:59 08/21/17 21:16 75 MG Lab Results Last 24 Hrs: 08/18/17 13:51 Red Blood Count 5.07, Mean Corpuscular Volume 84.4, Mean Corpuscular Hemoglobin 30.4, Mean Corpuscular Hemoglobin Concent 36.0, Mean Platelet Volume 11.3, Neutrophils (%) (Auto) 64.8, Lymphocytes (%) (Auto) 27.9, Monocytes (%) (Auto) 4.7, Eosinophils (%) (Auto) 1.9, Basophils (%) (Auto) 0.4, Neutrophils # (Auto) 6.23, Lymphocytes # (Auto) 2.68, Monocytes # (Auto) 0.45, Eosinophils # (Auto) 0.18, Basophils # (Auto) 0.04 08/18/17 13:51 Test 08/18/17 13:51 08/18/17 14:55 08/18/17 15:06 White Blood Count 9.61 K/uL (4.8-10.8) Red Blood Count 5.07 M/uL (4.2-5.4) Hemoglobin 15.4 g/dL (12.0-16.0) Hematocrit 42.8 % (37-47) Mean Corpuscular Volume 84.4 fL (80-100) Mean Corpuscular Hemoglobin 30.4 pg (25-34) Mean Corpuscular Hemoglobin Concent 36.0 g/dl (32-36) Platelet Count 294 K/uL (130-400) Mean Platelet Volume 11.3 fL (7.4-10.4) Neutrophils (%) (Auto) 64.8 % Lymphocytes (%) (Auto) 27.9 % Monocytes (%) (Auto) 4.7 % Eosinophils (%) (Auto) 1.9 % Basophils (%) (Auto) 0.4 % Neutrophils # (Auto) 6.23 K/uL (1.4-6.5) Lymphocytes # (Auto) 2.68 K/uL (1.2-3.4) Monocytes # (Auto) 0.45 K/uL (0.11-0.59) Eosinophils # (Auto) 0.18 K/uL (0-0.5) Basophils # (Auto) 0.04 K/uL (0-0.2) RDW Standard Deviation 38.3 fL (36.4-46.3) RDW Coefficient of Variation 12.7 % (11.5-14.5) Immature Granulocyte % (Auto) 0.3 % Immature Granulocyte # (Auto) 0.03 K/uL (0.00-0.02) Anion Gap 9.0 mmol/L (3-11) Est Creatinine Clear Calc Drug Dose 108.3 ml/min Estimated GFR () 116.1 Estimated GFR (Non- 100.2 BUN/Creatinine Ratio 15.1 (10-20) Calcium Level 9.0 mg/dl (8.5-10.1) Total Bilirubin 0.8 mg/dl (0.2-1) Direct Bilirubin 0.2 mg/dl (0-0.2) Aspartate Amino Transf (AST/SGOT) 15 U/L (15-37) Alanine Aminotransferase (ALT/SGPT) 31 U/L (12-78) Alkaline Phosphatase 74 U/L (45-117) Total Protein 8.0 gm/dl (6.4-8.2) Albumin 4.2 gm/dl (3.4-5.0) Thyroid Stimulating Hormone (TSH) 1.840 uIu/ml (0.300-4.500) Ethyl Alcohol mg/dL < 3.0 mg/dl (0-3) Urine Color YELLOW Urine Appearance CLEAR (CLEAR) Urine pH 6.0 (4.5-7.5) Urine Specific [place] 1.018 (1.000-1.030) Urine Protein NEG (NEG) Urine Glucose (UA) NEG (NEG) Urine Ketones 1+ (NEG) Urine Occult Blood NEG (NEG) Urine Nitrite NEG (NEG) Urine Bilirubin NEG (NEG) Urine Urobilinogen NEG (NEG) Urine Leukocyte Esterase MODERATE (NEG) Urine WBC (Auto) 5-10 /hpf (0-5) Urine RBC (Auto) 0-4 /hpf (0-4) Urine Hyaline Casts (Auto) 1-5 /lpf (0-5) Urine Epithelial Cells (Auto) >30 /lpf (0-5) Urine Bacteria (Auto) NEG (NEG) Urine Opiates Screen NEG (NEG) Urine Methadone, Qualitative NEG (NEG) Urine Barbiturates NEG (NEG) Urine Phencyclidine (PCP) Level NEG (NEG) Ur Amphetamine/Methamphetamine NEG (NEG) MDMA (Ecstasy) Screen NEG (NEG) Urine Benzodiazepines Screen NEG (NEG) Urine Cocaine Metabolite NEG (NEG) Urine Marijuana (THC) POS (NEG) Urine Marijuana (THC Carboxy Acid) 75 NG/ML (CUTOFF=5) Urine Test NEG (NEG)
[2017-08-22] MEDS ORDERED: NURSING VERBAL MED ORDER ONE (17:30)
[2017-08-22] MEDS ORDERED: ALBUTEROL HFA 8 GM INHALER INH PRN (17:30)
[2017-08-22] MEDS: hydrOXYzine HCL 25 MG TAB PO PRN (21:34)
[2017-08-22] MEDS: FLUVOXAMINE MALEATE 50 MG TAB PO SCH (21:34)
[2017-08-23 06:33] VITALS: BP_SYST 109; BP_SYST 116; BP_DIAS 65; BP_DIAS 78; PULSE 66; PULSE 97; TEMP 36.9
[2017-08-23] MEDS: NORGESTREL PO SCH (07:26)
[2017-08-23] MEDS: ETHINYL ESTRADIOL PO SCH (07:26)
--- NOTE | 2017-08-23 10:49 | Psychiatric Progress Notes ---
Progress Note Date of Service Aug 23, 2017. Interval History 22-year-old female presenting with worsening depressive symptoms and anxiety. Pt reports passive SI which has become more concerning to her in the last week. Chief Complaint "I'm really trying to focus on my issues. ". Subjective Patient was seen & assessed interval progress reviewed with Treatment Team. The patient says that she has been working with the staff, talking about her low self esteem which she thinks is a large part of her problem. She is feeling more hopeful for the future now, and was pleased to have had some friends from work visit. She feels like she will have more supports after discharge this time, than she did after last hospitalization. She is denying any acute SI, and feels that she is working toward "building a better foundation " upon which to base her life. Her boyfriend visited again as well. She feels like she is more invested in treatment this time around and is trying not to think about discharge, wanting to spend as much time as she can exploring the barriers to getting better. She denies side effects to meds. Sleep was still disturbed, but slightly better last night. Still using prn vistaril. Review of Systems Constitutional: No fever, No chills, No sweats, No weight loss, No weakness, No fatigue, No problem reported ENT: No hearing loss, No unusual epistaxis, No nasal symptoms, No sore throat, No tinnitus, No dental problems, No trouble swallowing, No problem reported Respiratory: No cough, No sputum, No wheezing, No shortness of breath, No dyspnea on exertion, No dyspnea at rest, No hemoptysis, No problem reported Cardiovascular: No chest pain, No orthopnea, No PND, No edema, No claudication , No palpitations, No problem reported Abdomen: No pain, No nausea, No vomiting, No diarrhea, No constipation, No GI bleeding, No problem reported Musculoskeletal: No joint pain, No muscle pain, No swelling, No calf pain, No problem reported Neurologic: No memory loss, No paralysis, No weakness, No numbness/tingling, No vertigo, No balance problems, No problem reported Psychiatric: + depression symptoms, + anxiety, + insomnia Sleep Information Total Hours of Sleep: 6.50 Meal Information Percent of Breakfast Consumed: 95 Percent of Lunch Consumed: 80 Percent of Dinner Consumed: 90 Mental Status Exam During interview pt is: alert and oriented, cooperative Appearance: appropriately dressed ( nose piercing), appropriately groomed Eye contact is: good Motor behavior is: steady gait & station, no abnormal motor movements Speech: normal in rate, rhythm & volume Affect: depressed Mood is: depressed Thought process: goal directed, linear, logical, clear, coherent Thought content: reality based without delusions, worthlessness Suicidal thought are: denied, Plan: denied, Intent: denied Hallucinations: denies auditory, denies visual Cognition: memory grossly intact, attention grossly intact, language grossly intact Intelligence estimated to be: consistent with level of education Insight: limited Judgement: limited Impression Continues with slow improvement. Staff report that she is working very hard in group and individual therapy to identify issues and tease out barriers to getting better. Will continue Luvox 100 mg. hs for now. Plan (1) Suicidal thoughts 08/19 - The patient is admitted to [facility] ([facility]) on q 15 min checks (behavioral with suicide precautions) for safety. The patient will participate in group, recreational and milieu therapies and will be offered additional individual and family sessions as clinically appropriate. - Reports passive SI recently, but has become more concerning. "Back up plan " to overdose, but no acts of furtherance or intent. 08/21 Patient feels mood is getting better moving more to upbeat than down. Still with passive SI but no plan or intent. Describes passive SI - "if someone did it for me". States passive SI is chronic for her and due to low self esteem. Continue q 15 min checks. Continue groups. Work on safety plan. (2) Mood disorder 08/19 - Lamotrigine 25mg, to titrate to previous 200mg dose. - Fluvoxamine 50mg qHS - Encourage participation in group programing, including group and recreational therapy - Encourage family meeting with boyfriend or other identified supports - Coordination of care with outpatient providers 08/20 -Continue current medications - Zofran when necessary nausea 08/21 - Continue current Lamictal treatment plan. - Increase Luvox to 75 mg HS. Plan is to titrate to 100mg. - Continue groups, formulate safety plan. 08/22 - Increase Luvox to 100 mg. HS 08/23 - Continue current meds. (3) Marijuana use, continuous Brief intervention was offered and accepted in regard to patient's chronic cannabis use. She reports quitting as of Monday08/14/17, but has struggled with regard to success of this decision in the past. Intervention was greater than 5 min in length. Brief interventions include: 1. Assess Readiness to Quit, 2. Advise: Help Patient to Reduce or Abstain from Alcohol, 3. Agree: Set Specific, Feasible Goals, 4. Assist: Anticipate barriers, Problem-Solving Solutions. Social work to 5. Arrange: Referrals to appropriate treatment. Summary of intervention: The patient is in determination/action stages with regards to transtheoretical model of change as she has been committed to abstinence for the past few days. The patient is advised to eliminate cannabis use as effects from these substance can alter thought process and make treatment of mental health conditions more difficult. The patient agreed to referral for outpatient counseling for cannabis abuse and will plan to provide aftercare with regard to these supports at discharge. Dr. Kennedy has personally been involved in the review of the above case and development of recommendations. Discharge / Aftercare Planning Primary Care Physician: Name: Dr Roni Jay [facility] Appointment Notes: appointment scheduled as needed Psychiatrist: Name: Dr. Oliver Date of Appointment: Aug 31, 2017 Time of Appointment: 8:40 am Appointment Notes: [address], [facility] [address] Therapist: Name: Von Mariano Date of Appointment: Aug 29, 2017 Time of Appointment: 1:00 pm Appointment Notes: [address], [facility] [address] Rerolling Machine Operator: Name: None Other: Name of Appointment #1: [facility] Date of Appointment #1: Aug 30, 2017 Time of Appointment #1: 9:30 am Appointment #1 Notes: [address] [facility] [address] Visit Code E&M Code: 26247 Inventory Assets Strengths: willingness for treatment, outpatient providers in place, intelligence Needs: assistance with abstaining from marijuana; restart of psychiatric medications Risk Factors Assessment : Yes /single/: Yes Health problems: No Mental Health Diagnoses: Yes Substance use disorders: Yes (marijuana) Previous attempt: No Previous psychiatric stay: Yes Hopelessness: Yes Smoker: No Protective Factors Assessment Muslim beliefs: No : No Responsible for young children: No Employed: Yes Stable relationships: Yes Supportive family: Yes Good rapport with provider: Yes Data Vital Signs Last 24 Hrs: Date Time Temp Pulse Resp B/P (MAP) Pulse Ox O2 Delivery O2 Flow Rate FiO2 08/23/17 06:33 36.9 66 16 109/65 97 116/78 Meds Administered Last 24 Hrs: Meds Administered (Past 24Hrs) Medications (Trade) Dose Ordered Sig/Deanna Route Start Time Stop Time Status Last Admin Dose Admin Fluvoxamine Maleate (Luvox Tab) 75 mg HS PO 08/21/17 22:00 08/23/17 08:27 DC 08/22/17 21:34 75 MG Albuterol (Ventolin Hfa Inhaler) 2 puffs Q4H PRN INH 08/22/17 17:30 09/21/17 17:29 08/22/17 18:54 2 PUFFS Lab Results Last 24 Hrs: 08/18/17 13:51 Red Blood Count 5.07, Mean Corpuscular Volume 84.4, Mean Corpuscular Hemoglobin 30.4, Mean Corpuscular Hemoglobin Concent 36.0, Mean Platelet Volume 11.3, Neutrophils (%) (Auto) 64.8, Lymphocytes (%) (Auto) 27.9, Monocytes (%) (Auto) 4.7, Eosinophils (%) (Auto) 1.9, Basophils (%) (Auto) 0.4, Neutrophils # (Auto) 6.23, Lymphocytes # (Auto) 2.68, Monocytes # (Auto) 0.45, Eosinophils # (Auto) 0.18, Basophils # (Auto) 0.04 08/18/17 13:51 Test 08/18/17 13:51 08/18/17 14:55 08/18/17 15:06 White Blood Count 9.61 K/uL (4.8-10.8) Red Blood Count 5.07 M/uL (4.2-5.4) Hemoglobin 15.4 g/dL (12.0-16.0) Hematocrit 42.8 % (37-47) Mean Corpuscular Volume 84.4 fL (80-100) Mean Corpuscular Hemoglobin 30.4 pg (25-34) Mean Corpuscular Hemoglobin Concent 36.0 g/dl (32-36) Platelet Count 294 K/uL (130-400) Mean Platelet Volume 11.3 fL (7.4-10.4) Neutrophils (%) (Auto) 64.8 % Lymphocytes (%) (Auto) 27.9 % Monocytes (%) (Auto) 4.7 % Eosinophils (%) (Auto) 1.9 % Basophils (%) (Auto) 0.4 % Neutrophils # (Auto) 6.23 K/uL (1.4-6.5) Lymphocytes # (Auto) 2.68 K/uL (1.2-3.4) Monocytes # (Auto) 0.45 K/uL (0.11-0.59) Eosinophils # (Auto) 0.18 K/uL (0-0.5) Basophils # (Auto) 0.04 K/uL (0-0.2) RDW Standard Deviation 38.3 fL (36.4-46.3) RDW Coefficient of Variation 12.7 % (11.5-14.5) Immature Granulocyte % (Auto) 0.3 % Immature Granulocyte # (Auto) 0.03 K/uL (0.00-0.02) Anion Gap 9.0 mmol/L (3-11) Est Creatinine Clear Calc Drug Dose 108.3 ml/min Estimated GFR () 116.1 Estimated GFR (Non- 100.2 BUN/Creatinine Ratio 15.1 (10-20) Calcium Level 9.0 mg/dl (8.5-10.1) Total Bilirubin 0.8 mg/dl (0.2-1) Direct Bilirubin 0.2 mg/dl (0-0.2) Aspartate Amino Transf (AST/SGOT) 15 U/L (15-37) Alanine Aminotransferase (ALT/SGPT) 31 U/L (12-78) Alkaline Phosphatase 74 U/L (45-117) Total Protein 8.0 gm/dl (6.4-8.2) Albumin 4.2 gm/dl (3.4-5.0) Thyroid Stimulating Hormone (TSH) 1.840 uIu/ml (0.300-4.500) Ethyl Alcohol mg/dL < 3.0 mg/dl (0-3) Urine Color YELLOW Urine Appearance CLEAR (CLEAR) Urine pH 6.0 (4.5-7.5) Urine Specific [place] 1.018 (1.000-1.030) Urine Protein NEG (NEG) Urine Glucose (UA) NEG (NEG) Urine Ketones 1+ (NEG) Urine Occult Blood NEG (NEG) Urine Nitrite NEG (NEG) Urine Bilirubin NEG (NEG) Urine Urobilinogen NEG (NEG) Urine Leukocyte Esterase MODERATE (NEG) Urine WBC (Auto) 5-10 /hpf (0-5) Urine RBC (Auto) 0-4 /hpf (0-4) Urine Hyaline Casts (Auto) 1-5 /lpf (0-5) Urine Epithelial Cells (Auto) >30 /lpf (0-5) Urine Bacteria (Auto) NEG (NEG) Urine Opiates Screen NEG (NEG) Urine Methadone, Qualitative NEG (NEG) Urine Barbiturates NEG (NEG) Urine Phencyclidine (PCP) Level NEG (NEG) Ur Amphetamine/Methamphetamine NEG (NEG) MDMA (Ecstasy) Screen NEG (NEG) Urine Benzodiazepines Screen NEG (NEG) Urine Cocaine Metabolite NEG (NEG) Urine Marijuana (THC) POS (NEG) Urine Marijuana (THC Carboxy Acid) 75 NG/ML (CUTOFF=5) Urine Test NEG (NEG)
[2017-08-23] MEDS: hydrOXYzine HCL 25 MG TAB PO PRN (21:38)
[2017-08-23] MEDS ORDERED: FLUVOXAMINE MALEATE 50 MG TAB PO SCH (22:00)
[2017-08-24 07:13] VITALS: BP_SYST 121; BP_SYST 129; BP_DIAS 79; BP_DIAS 86; PULSE 103; PULSE 77; TEMP 36.9
[2017-08-24] MEDS: ETHINYL ESTRADIOL PO SCH (08:23)
[2017-08-24] MEDS: NORGESTREL PO SCH (08:23)
[2017-08-24] MEDS ORDERED: LMC25 PO (09:18)
[2017-08-24] MEDS ORDERED: FLUV100T2 PO (09:18)
--- NOTE | 2017-08-24 09:29 | Discharge Instructions ---
Discharge Information Report Includes Report will include the: Discharge Instructions & Summary Admission Admission Date / Time: Aug 18, 2017 at 18:20 Reason for Admission: Major Depression Recurrent Discharge Discharge Diagnosis / Problem: Depression Condition at Discharge: Good Discharge Goals Goal(s): Decrease discomfort, Improve function, Improve disease control Activity Recommendations Activity Limitations: resume your previous activity . Instructions / Follow-Up Instructions / Follow-Up . SPECIAL CARE INSTRUCTIONS: 1. Follow through with your scheduled aftercare appointments. If unable to keep an appointment, please call to reschedule. 2. Take your medication only as prescribed. Medication should not be changed or stopped without the approval of your doctor. In the event of worsening symptoms or concerns about side effects, contact your doctor immediately. 3. Utilize new healthy coping skills, anger management skills, and stress management skills learned during your hospitalization. Journal feelings and process them with a support person. Identify stressors or situations that may result in relapse, deterioration or inappropriate behaviors and develop a plan to deal with those issues. 4. If your coping skills are ineffective and you are in crisis, contact your outpatient providers for direction. If unable to reach your providers, please call the CAN HELP LINE AT or go to the closest Emergency Room. 5. Avoid alcohol and un-prescribed drugs. 6. You have been provided with the Mental Health Advance Directives Pamphlet for your review. AFTERCARE APPOINTMENTS: * Please call your insurance company prior to your scheduled appointment to confirm your aftercare providers are covered. Take your insurance information to your appointments. . Discharge / Aftercare Planning Primary Care Physician: Name: Dr Tamayo [facility] Appointment Notes: appointment scheduled as needed Psychiatrist: Name: Dr. Oliver Date of Appointment: Aug 31, 2017 Time of Appointment: 8:40 am Appointment Notes: [address], [place] [address] Therapist: Name Of Therapist: Von Mariano Date of Appointment: Aug 29, 2017 Time of Appointment: 1:00 pm Appointment Comments: [address], [place] [id number] International Marketing Executive: Name: None Other: Name of Appointment #1: [facility] Date of Appointment #1: Aug 30, 2017 Time of Appointment #1: 9:30 am Appointment #1 Notes: [address] [facility], [place] [address] . Follow-Up Care Plan for Follow-Up Care: The patient will see Dr. Oliver and Kody Mariano CRATE OPENER for treatment within 1 week of discharge. Current Hospital Diet Patient's current hospital diet: Regular Diet Discharge Diet Recommended Diet: Regular Diet Procedures Procedures Performed: No Pending Studies Pending Studies at Discharge: No Medical Emergencies . Who to Call and When: Medical Emergencies: For questions or emergencies related to your hospital stay, please contact the Inpatient Behavioral Health Unit at [phone]. A counter server is on-call 16/01 for the Behavioral Health Unit for emergencies At any time you feel your situation is an emergency, you may also call 911 immediately. . Non-Emergent Contact Non-Emergency issues call your: Psychiatrist, Therapist Past History Medical & Surgical History: (1) Hypothyroid Advance Directives Existing Advance Directive: No Do You Have an Existing Mental: No Existing Living Will: No Existing Power of Inspectors And Regulatory Officers: No Advance Directives Info Given: To Pt/S.O. Advance Directives Reason: Declines as Mental Health Visit. Discharge Summary Admission HPI Per the Admitting provider: Margareth Conn is a 22-year-old female who presented to the ED after a discussion with her friend regarding feeling overwhelmed at work and worsening mood symptoms. Pt states she left work to be evaluated for inpatient mental health treatment. Pt states that she has been noticing worsening of her anxiety , depression, and obsessive/compulsive tendencies since the beginning of the year. Around that time she also discontinued her psychiatric medications as she felt they were not helpful. Pt was most recently hospitalized in March 2017 at [facility] for similar symptoms. Pt presents with worsening passive SI that has become more alarming for her. Pt was admitted voluntarily. Pt states she had seen her outpatient psychiatrist the beginning of May 2017, they had made some medication changes including discontinuation of mirtazapine and buspirone, and initiation of fluvoxamine. Pt was instructed to remain on lamotrigine 200mg for mood stabilization and her outpatient provider was attempting to clarify MDD, recurrent versus bipolar II. Pt agrees it works well "in the background" to prevent severe depressive episodes. Pt has also been treated on an outpatient basis for TIMOTHY and OCD. Pt reports taking fluvoxamine 50mg for about 3-4 weeks prior to discontinuation of both fluvoxamine and lamotrigine. She admits to continuation of lorazepam for assistance with reported insomnia for the last week. Pt reports depressive symptoms of low mood, decreased motivation, lack of energy , difficulty concentrating, decreased appetite, and trouble falling asleep. Pt states she has ongoing issues with self-esteem and feels as though people don't like her. She reports feeling hopeless as she feels that the medications she has tried have not been effective for her. Pt reports passive SI ("I didn't care if something happened to me"), with has become more concerning to her in the last week. Pt states she does not have an active plan and denies acts of furtherance or intent, but states, "I guess I always have a back-up plan that I could overdose." Pt reports anxiety in the form of racing thoughts, especially when evaluating her performance at work, but denies frequent panic attacks. Pt states her OCD tendencies have become worse as she is spending more time at work organizing files and critiquing her performance. In regard to question of hypomanic symptoms, patient recalls times of "high mood, but it doesn't usually last long". She states her good moods last a few hours to 2 days, but reports depressive and self-deprecating thoughts take over and cause her mood to decline after a relatively short period of time. Pt denies paranoia, overt patricia, PTSD, eating disorder, A/V hallucinations, and other psychosis. Pt reports her chronic marijuana use has caused issues with her mental health treatment in the past. She states she quit using for 21 days after her hospitalization in March, but then resorted back to regularly smoking with her boyfriend. Pt denies use since Monday, 08/14 and states she is more committed to continuing her abstinence. Hospital Course (1) Suicidal thoughts 08/19 - The patient is admitted to [facility] ([facility] inpatient mental health unit) on q 15 min checks (behavioral with suicide precautions) for safety. The patient will participate in group, recreational and milieu therapies and will be offered additional individual and family sessions as clinically appropriate. - Reports passive SI recently, but has become more concerning. "Back up plan " to overdose, but no acts of furtherance or intent. 08/21 Patient feels mood is getting better moving more to upbeat than down. Still with passive SI but no plan or intent. Describes passive SI - "if someone did it for me". States passive SI is chronic for her and due to low self esteem. Continue q 15 min checks. Continue groups. Work on safety plan. (2) Mood disorder 08/19 - Lamotrigine 25mg, to titrate to previous 200mg dose. - Fluvoxamine 50mg qHS - Encourage participation in group programing, including group and recreational therapy - Encourage family meeting with boyfriend or other identified supports - Coordination of care with outpatient providers 08/20 -Continue current medications - Zofran when necessary nausea 08/21 - Continue current Lamictal treatment plan. - Increase Luvox to 75 mg HS. Plan is to titrate to 100mg. - Continue groups, formulate safety plan. 08/22 - Increase Luvox to 100 mg. HS 08/23 - Continue current meds. (3) Marijuana use, continuous Brief intervention was offered and accepted in regard to patient's chronic cannabis use. She reports quitting as of Monday08/14/17, but has struggled with regard to success of this decision in the past. Intervention was greater than 5 min in length. Brief interventions include: 1. Assess Readiness to Quit, 2. Advise: Help Patient to Reduce or Abstain from Alcohol, 3. Agree: Set Specific, Feasible Goals, 4. Assist: Anticipate barriers, Problem-Solving Solutions. Social work to 5. Arrange: Referrals to appropriate treatment. Summary of intervention: The patient is in determination/action stages with regards to transtheoretical model of change as she has been committed to abstinence for the past few days. The patient is advised to eliminate cannabis use as effects from these substance can alter thought process and make treatment of mental health conditions more difficult. The patient agreed to referral for outpatient counseling for cannabis abuse and will plan to provide aftercare with regard to these supports at discharge. Risk Factors Assessment : Yes /single/: Yes Health problems: No Mental Health Diagnoses: Yes Substance use disorders: Yes (marijuana) Previous attempt: No Previous psychiatric stay: Yes Hopelessness: Yes Smoker: No Protective Factors Assessment Hinduism beliefs: No : No Responsible for young children: No Employed: Yes Stable relationships: Yes Supportive family: Yes Good rapport with provider: Yes Day of Discharge Assessment COURSE OF HOSPITALIZATION: The patient was on our unit for 6 days. She was admitted voluntarily with severe depression, suicidality in the setting of having stopped her meds and treatment months before. She was restarted on Luvox , and collaboration with her outpatient psychiatrist, Dr. Oliver, getting to a dosage of 100 mg at bedtime. She was also restarted on Lamictal 25 mg daily. She tolerated these without side effect. She took a decidedly different approach to treatment this time, finding investment and understanding what her barriers to getting better were. She talked a great deal about low self-esteem and about learning to express herself so that she can The most out of treatment. She was a good group participant and readily utilized individual therapy as well. Family meeting was held with her boyfriend Everette who was very supportive and willing to help monitor her medications to see that she takes them regularly. She has agreed to reengage in treatment and will rip return to see Dr. Oliver and her therapist Dwain Mariano LCSW. During the majority of her stay she had passive thoughts of suicide, thoughts that she would be better off but she says that she has had off and on for years when she gets depressed. By the day of discharge she was without O passive and acute thoughts of suicide. She will be able to return to work next week. TRANSITION OF CARE: I have personally reviewed the patient's medication regimen as well as her follow-up appointments and impressed upon her the need for adherence to both. DAY OF DISCHARGE ASSESSMENT: Today the patient is requesting discharge. She feels significantly improved over admission, continues to deny suicidal ideation. She has a history of smoking cannabis but had stopped prior to admission and was encouraged to continue to abstain to which she agrees. She is hopeful for the future. Her boyfriend Everette will be able to meet her today at time of discharge. Today she is casually and appropriately dressed and groomed. Gait and station are within normal limits. Eye contact is good. Affect is restricted but able to smile. Speech is of normal rate volume and tone. Thoughts are organized, goal directed, and without evidence of thought disorder. Recent and remote memory are intact per conversation. Intelligence is estimated to be average. Insight and judgment are improved over admission. Laboratory Test 08/18/17 13:51 08/18/17 14:55 08/18/17 15:06 White Blood Count 9.61 Red Blood Count 5.07 Hemoglobin 15.4 Hematocrit 42.8 Mean Corpuscular Volume 84.4 Mean Corpuscular Hemoglobin 30.4 Mean Corpuscular Hemoglobin Concent 36.0 Platelet Count 294 Mean Platelet Volume 11.3 Neutrophils (%) (Auto) 64.8 Lymphocytes (%) (Auto) 27.9 Monocytes (%) (Auto) 4.7 Eosinophils (%) (Auto) 1.9 Basophils (%) (Auto) 0.4 Neutrophils # (Auto) 6.23 Lymphocytes # (Auto) 2.68 Monocytes # (Auto) 0.45 Eosinophils # (Auto) 0.18 Basophils # (Auto) 0.04 RDW Standard Deviation 38.3 RDW Coefficient of Variation 12.7 Immature Granulocyte % (Auto) 0.3 Immature Granulocyte # (Auto) 0.03 Sodium Level 137 Potassium Level 3.7 Chloride Level 108 Carbon Dioxide Level 20 Anion Gap 9.0 Blood Urea Nitrogen 12 Creatinine 0.82 Est Creatinine Clear Calc Drug Dose 108.3 Estimated GFR () 116.1 Estimated GFR (Non- 100.2 BUN/Creatinine Ratio 15.1 Random Glucose 72 Calcium Level 9.0 Total Bilirubin 0.8 Direct Bilirubin 0.2 Aspartate Amino Transferase (AST) 15 Alanine Aminotransferase (ALT) 31 Alkaline Phosphatase 74 Total Protein 8.0 Albumin 4.2 Thyroid Stimulating Hormone (TSH) 1.840 Ethyl Alcohol mg/dL < 3.0 Urine Color YELLOW Urine Appearance CLEAR Urine pH 6.0 Urine Specific [place] 1.018 Urine Protein NEG Urine Glucose (UA) NEG Urine Ketones 1+ Urine Occult Blood NEG Urine Nitrite NEG Urine Bilirubin NEG Urine Urobilinogen NEG Urine Leukocyte Esterase MODERATE Urine WBC (Auto) 5-10 Urine RBC (Auto) 0-4 Urine Hyaline Casts (Auto) 1-5 Urine Epithelial Cells (Auto) >30 Urine Bacteria (Auto) NEG Urine Test NEG NEG Urine Opiates Screen NEG Urine Methadone, Qualitative NEG Urine Barbiturates NEG Urine Phencyclidine (PCP) Level NEG Ur Amphetamine/Methamphetamine NEG MDMA (Ecstasy) Screen NEG Urine Benzodiazepines Screen NEG Urine Cocaine Metabolite NEG Urine Marijuana (THC) POS Urine Marijuana (THC Carboxy Acid) 75 Total Time Total Time Spent (min): Greater than 30 minutes Total Time Included: examination of the patient, discharge planning, medication reconciliation, communication with other providers Tobacco Cessation at Discharge Smoking Status: Never Smoker FDA approved Prescription: non-smoker
--- NOTE | 2017-08-24 12:02 | Psych Management Progress Note ---
Psychiatry Miscellaneous Date of Service: Aug 24, 2017. I personally met with the patient, reviewed the discharge plan, and agree with documentation from BRYANNA Rg.
== END 2017-08-24 10:37 | disposition home or self-care (01) | DRG 885 ==
LOC: C.EDB 13:11 → C.MHU 18:20
PROVIDERS: ADMIT Psychiatry & Neurology Child & Adolescent Psychiatry; ATTEND Psychiatry & Neurology Child & Adolescent Psychiatry
DX: F39 Unspecified mood [affective] disorder (principal); R45.851 Suicidal ideations; F12.90 Cannabis use, unspecified, uncomplicated; Z79.3 Long term (current) use of hormonal contraceptives; Z88.8 Allergy status to other drugs, medicaments and biological substances; Z62.811 Personal history of psychological abuse in childhood; Z91.410 Personal history of adult physical and sexual abuse; Z91.048 Other nonmedicinal substance allergy status; Z81.8 Family history of other mental and behavioral disorders; Z81.3 Family history of other psychoactive substance abuse and dependence; Z81.1 Family history of alcohol abuse and dependence; Z83.3 Family history of diabetes mellitus; Z82.3 Family history of stroke; Z83.49 Family history of other endocrine, nutritional and metabolic diseases

== ENCOUNTER → 2018-01-16 | Outpatient (CLI) | payer OTHER ==
[~2018-01-16] MED LIST changes: -RMR15 PO
[2018-01-16 13:58] LABS: ALKALINE PHOSPHATASE 79 U/L (45-117); ALT/SGPT 23 U/L (12-78); AST/SGOT 13 U/L (15-37); BLOOD UREA NITROGEN 12 mg/dl (7-18); CALCIUM 8.6 mg/dl (8.5-10.1); CARBON DIOXIDE 18 mmol/L (21-32); CHOLESTEROL 158 mg/dl (0-200); CREATININE 0.91 mg/dl (0.60-1.20); GLUCOSE 72 mg/dl (70-99); LDL CHOLESTEROL CALCULATED 103 mg/dl; POTASSIUM 3.8 mmol/L (3.5-5.1); SODIUM 140 mmol/L (136-145); TOTAL PROTEIN 7.4 gm/dl (6.4-8.2)
== END | disposition home or self-care (01) ==
LOC: C.LAB1850 12:09
PROVIDERS: ATTEND Physician Assistant Medical
DX: Z00.00 Encounter for general adult medical examination without abnormal findings (principal)

== ENCOUNTER 2020-11-29 21:09 | Inpatient (IN) ==
--- NOTE | 2020-11-29 21:40 | Emergency Department Note ---
Impression & Plan Suicidal ideation ED Provider Note NAME: SAURABH JUDGE AGE: 25 SEX: F : 1995 ARRIVES VIA: Walk-In INFORMANT: [Patient][boyfriend] ED PROVIDER(S): [Ike Lindsay MD] CHIEF COMPLAINT: Suicidal ideation HISTORY OF PRESENT ILLNESS: The patient is a 25-year-old female who states that around 9 or so hours ago, she was planning on taking a large dose of Ativan. She had an argument with her boyfriend and this pushed her into thinking about suicide. The boyfriend was able to stop her from ingesting any pills. The patient states that for the last few weeks, she has had increasing depression and some suicidal thoughts. She has a history of prior overdose. Patient has been hospitalized for psychiatry purposes in the past. The patient states that there has been a lot of stress with work. She states that there have been some medication changes recently although, she does not feel the medications are working. The patient denies any alcohol use. She does smoke marijuana. She is currently voluntary. REVIEW OF SYSTEMS: See HPI for pertinent positives and negatives. A total of ten systems were reviewed and were otherwise negative. PMHx/PSHx: See Below SOCIAL HISTORY: See Below. PHYSICAL EXAM: GENERAL: Patient is in no acute distress. HEENT: No acute trauma, normocephalic atraumatic, mucous membranes moist, no nasal congestion, no scleral icterus. NECK: No stridor, no adenopathy, no meningismus, trachea is midline. LUNGS: Clear to auscultation bilaterally, no wheeze, no rhonchi, breath sounds equal. HEART: Without murmurs gallops or rubs, regular rate and rhythm. ABDOMEN: Soft, nontender, bowel sounds positive, no hernias, no peritonitis. EXTREMITIES: No cyanosis or edema, full range of motion of all the joints without pain or difficulty, no signs for acute trauma. NEUROLOGIC: Oriented x 3, no acute motor or sensory deficits, no focal weakness. SKIN: No rash, no jaundice, no diaphoresis. Psychiatric: Cooperative, voluntary. She admits to wanting to overdose on Ativan earlier today. DIFFERENTIAL DIAGNOSIS: Mood disorder, infection, hypoglycemia, electrolyte abnormalities, suicidal ideation, depression, anxiety, cardiac sources, intracerebral event, toxicologic etiology, trauma, neurologic event, as well as other pathologies. EMERGENCY DEPARTMENT COURSE/PROCEDURES: MEDICAL DECISION MAKING: There is no leukocytosis or concerning anemia. There is a normal platelet count. The CO2 was slightly low, there was a normal potassium and sodium. There was a normal creatinine. No kidney failure. No worrisome liver enzyme elevation. The patient was mildly hypothyroid but, there was no reason for any type of emergent intervention. testing was negative. Urinalysis did not show evidence for infection. Aspirin, Tylenol and alcohol levels were undetectable. Urine tox shows marijuana only. Covid test is pending. The patient presents with suicidal ideation. She has a history of overdosing on medication in the past. She had thought to overdose on Ativan today. She does admit to some increasing stress and depression. Patient is currently voluntary. She was felt medically clear. The patient was seen by psychiatry case management. A bed search is underway. The patient's case is being assumed by Dr. Haynes at the change of shift. Please see his notes for the final disposition plan. Past Med/Surg History Medical History Abnormal uterine bleeding Acid reflux Asthma Eating disorder Encounter for gynecological examination without abnormal finding Irregular menses Lymphadenopathy OCD (obsessive compulsive disorder) Oral contraceptive pill surveillance Pelvic cramping Sinus tachycardia Stress incontinence Surgical History H/O oral surgery Family History Grandmother (Maternal) Hypertension Denies family history of Pancreatic cancer Ovarian cancer Prostate cancer Breast cancer Colorectal cancer Uterine cancer Social History Smoking Status: Never smoker Hx Alcohol Use: Yes (social) Hx Substance Use: No Preferred Language: Afghan Feels Safe at Home: Yes Dental Care, Regularly: Yes Physical Activity Frequency: Does not Exercise Seatbelt Use: always Sunscreen Use: Yes Allergies Allergies Allergy/AdvReac Type Severity Reaction Status Date / Time adhesive AdvReac Intermediate RASH Verified 06/17/20 07:59 nickel AdvReac Intermediate RASH Verified 06/17/20 07:59 aripiprazole AdvReac Mild NAUSEA/VOMI Verified 06/17/20 07:59 TING Home Meds Home Medications Medication Instructions Recorded Confirmed naproxen 250 mg tablet 125 mg PO Q12H PRN tab 02/24/19 05/18/20 hydroxyzine pamoate 50 mg capsule 50 mg PO TID PRN 03/03/20 05/18/20 lamotrigine 200 mg tablet 200 mg PO DAILY 03/03/20 05/18/20 trazodone 100 mg tablet 100 mg PO DAILY 03/03/20 05/18/20 vortioxetine 10 mg tablet 10 mg PO DAILY 05/18/20 05/18/20 Previous Rx's Medication Instructions Recorded norgestrel 0.3 mg-ethinyl 1 tab PO DAILY #28 tab 03/03/20 estradiol 30 mcg tablet venlafaxine 150 mg 150 mg PO DAILY #30 cap 03/03/20 capsule,extended release 24 hr pantoprazole 40 mg tablet,delayed See Rx Instructions .ROUTE 08/18/20 release .COMPLEX #30 tab Results & Data (ED) Vital Signs Vital Signs - 24 hr 11/29/20 21:12 11/29/20 23:10 Temperature 36.4 C L Temperature Source Temporal Artery Scan Pulse Rate 124 H Pulse Rate [Finger] 81 Respiratory Rate 18 20 Respiratory Effort / Characteristics Non-Labored Spontaneous Respiratory Depth Normal Normal Blood Pressure 146/93 H Blood Pressure [Right Arm] 113/74 Blood Pressure Mean 110 Blood Pressure Mean [Right Arm] 87 Pulse Oximetry 97 97 Oxygen Delivery Method Room Air Room Air Sepsis Recent Fever Within 48 Hours No Sepsis New/Unexplained Change in Mental Status N/A Sepsis Action Taken by Nursing No Action Required Home Medications Current Medication List: was personally reviewed by me Laboratory Data Attestation: I reviewed the patient's lab results. Result diagrams: 11/29/20 21:52 11/29/20 21:52 Lab Results 11/29/20 11/29/20 11/29/20 Range/Units 21:52 21:52 21:52 WBC 10.65 (4.8-10.8) K/uL RBC 4.82 (4.2-5.4) M/uL Hgb 14.5 (12.0-16.0) g/dL Hct 41.9 (37-47) % MCV 86.9 (80-100) fL MCH 30.1 (25-34) pg MCHC 34.6 (32-36) g/dL RDW Std Deviation 41.3 (36.4-46.3) fL RDW Coeff of Radhika 12.9 (11.5-14.5) % Plt Count 318 (130-400) K/uL MPV 11.4 H (7.4-10.4) fL Immature Gran % (Auto) 0.4 % Neut % (Auto) 62.7 % Lymph % (Auto) 28.3 % Griggs % (Auto) 4.7 % Eos % (Auto) 3.5 % Baso % (Auto) 0.4 % Neut # (Auto) 6.69 H (1.4-6.5) K/uL Lymph # (Auto) 3.01 (1.2-3.4) K/uL Griggs # (Auto) 0.50 (0.11-0.59) K/uL Eos # (Auto) 0.37 (0-0.5) K/uL Baso # (Auto) 0.04 (0-0.2) K/uL Immature Gran # (Auto) 0.04 H (0.00-0.02) K/uL Sodium 140 (136-145) mmol/L Potassium 3.6 (3.5-5.1) mmol/L Chloride 111 H (98-107) mmol/L Carbon Dioxide 17 L (21-32) mmol/L Anion Gap 12.0 H (3-11) BUN 8 (7-18) mg/dl Creatinine 1.06 (0.6-1.2) mg/dl Est Cr Clr Drug Dosing 81.3 ml/min Est GFR ( Amer) 83.3 ml/min Est GFR (Non-Af Amer) 71.9 ml/min BUN/Creatinine Ratio 7.9 L (10-20) Glucose 121 H (70-99) mg/dl Calcium 9.0 (8.5-10.1) mg/dl Total Bilirubin 0.2 (0.2-1) mg/dl AST 10 L (15-37) U/L ALT 32 (12-78) U/L Alkaline Phosphatase 93 (45-117) U/L Total Protein 7.5 (6.4-8.2) gm/dl Albumin 3.9 (3.4-5.0) gm/dl Globulin 3.6 (2.5-4.0) gm/dl Albumin/Globulin Ratio 1.1 (0.9-2) TSH 5.640 H (0.300-4.500) uIu/ml Free T4 0.78 L (0.8-1.6) ng/dl HCG, Qual (Negative) Urine Color Urine Appearance (Clear) Urine pH (4.5-7.5) Ur Specific [place] (1.000-1.030) Urine Protein (Negative) Urine Glucose (UA) (Negative) Urine Ketones (Negative) Urine Blood (Negative) Urine Nitrite (Negative) Urine Bilirubin (Negative) Urine Urobilinogen (Negative) Ur Leukocyte Esterase (Negative) Urine WBC (Auto) (0-5) /hpf Urine RBC (Auto) (0-4) /hpf U Hyaline Cast (Auto) (0-5) /lpf U Epithel Cells (Auto) (0-5) /lpf Urine Bacteria (Auto) (Negative) Salicylates < 1.7 L (2.8-20) mg/dl Urine Opiates Screen (Neg) Ur Methadone, Qual (Neg) Acetaminophen < 2 L (10-30) ug/ml Urine Barbiturates (Neg) Ur Phencyclidine (PCP) (Neg) U Amphetamin/Meth Scrn (Neg) MDMA (Ecstasy) Screen (Neg) U Benzodiazepines Scrn (Neg) Ur Cocaine Metabolite (Neg) U Marijuana (THC) Screen (Neg) Ethyl Alcohol mg/dL (0-3) mg/dl 11/29/20 11/29/20 11/29/20 Range/Units 21:52 21:52 22:39 WBC (4.8-10.8) K/uL RBC (4.2-5.4) M/uL Hgb (12.0-16.0) g/dL Hct (37-47) % MCV (80-100) fL MCH (25-34) pg MCHC (32-36) g/dL RDW Std Deviation (36.4-46.3) fL RDW Coeff of Radhika (11.5-14.5) % Plt Count (130-400) K/uL MPV (7.4-10.4) fL Immature Gran % (Auto) % Neut % (Auto) % Lymph % (Auto) % Griggs % (Auto) % Eos % (Auto) % Baso % (Auto) % Neut # (Auto) (1.4-6.5) K/uL Lymph # (Auto) (1.2-3.4) K/uL Griggs # (Auto) (0.11-0.59) K/uL Eos # (Auto) (0-0.5) K/uL Baso # (Auto) (0-0.2) K/uL Immature Gran # (Auto) (0.00-0.02) K/uL Sodium (136-145) mmol/L Potassium (3.5-5.1) mmol/L Chloride (98-107) mmol/L Carbon Dioxide (21-32) mmol/L Anion Gap (3-11) BUN (7-18) mg/dl Creatinine (0.6-1.2) mg/dl Est Cr Clr Drug Dosing ml/min Est GFR ( Amer) ml/min Est GFR (Non-Af Amer) ml/min BUN/Creatinine Ratio (10-20) Glucose (70-99) mg/dl Calcium (8.5-10.1) mg/dl Total Bilirubin (0.2-1) mg/dl AST (15-37) U/L ALT (12-78) U/L Alkaline Phosphatase (45-117) U/L Total Protein (6.4-8.2) gm/dl Albumin (3.4-5.0) gm/dl Globulin (2.5-4.0) gm/dl Albumin/Globulin Ratio (0.9-2) TSH (0.300-4.500) uIu/ml Free T4 (0.8-1.6) ng/dl HCG, Qual Negative (Negative) Urine Color Yellow Urine Appearance Clear (Clear) Urine pH 7.0 (4.5-7.5) Ur Specific [place] 1.011 (1.000-1.030) Urine Protein Negative (Negative) Urine Glucose (UA) Negative (Negative) Urine Ketones Negative (Negative) Urine Blood Negative (Negative) Urine Nitrite Negative (Negative) Urine Bilirubin Negative (Negative) Urine Urobilinogen Negative (Negative) Ur Leukocyte Esterase Trace H (Negative) Urine WBC (Auto) 1-5 (0-5) /hpf Urine RBC (Auto) 0-4 (0-4) /hpf U Hyaline Cast (Auto) 1-5 (0-5) /lpf U Epithel Cells (Auto) 20-30 H (0-5) /lpf Urine Bacteria (Auto) Negative (Negative) Salicylates (2.8-20) mg/dl Urine Opiates Screen (Neg) Ur Methadone, Qual (Neg) Acetaminophen (10-30) ug/ml Urine Barbiturates (Neg) Ur Phencyclidine (PCP) (Neg) U Amphetamin/Meth Scrn (Neg) MDMA (Ecstasy) Screen (Neg) U Benzodiazepines Scrn (Neg) Ur Cocaine Metabolite (Neg) U Marijuana (THC) Screen (Neg) Ethyl Alcohol mg/dL < 3.0 (0-3) mg/dl 11/29/20 Range/Units 22:39 WBC (4.8-10.8) K/uL RBC (4.2-5.4) M/uL Hgb (12.0-16.0) g/dL Hct (37-47) % MCV (80-100) fL MCH (25-34) pg MCHC (32-36) g/dL RDW Std Deviation (36.4-46.3) fL RDW Coeff of Radhika (11.5-14.5) % Plt Count (130-400) K/uL MPV (7.4-10.4) fL Immature Gran % (Auto) % Neut % (Auto) % Lymph % (Auto) % Griggs % (Auto) % Eos % (Auto) % Baso % (Auto) % Neut # (Auto) (1.4-6.5) K/uL Lymph # (Auto) (1.2-3.4) K/uL Gr[place]gs # (Auto) (0.11-0.59) K/uL Eos # (Auto) (0-0.5) K/uL Baso # (Auto) (0-0.2) K/uL Immature Gran # (Auto) (0.00-0.02) K/uL Sodium (136-145) mmol/L Potassium (3.5-5.1) mmol/L Chloride (98-107) mmol/L Carbon Dioxide (21-32) mmol/L Anion Gap (3-11) BUN (7-18) mg/dl Creatinine (0.6-1.2) mg/dl Est Cr Clr Drug Dosing ml/min Est GFR ( Amer) ml/min Est GFR (Non-Af Amer) ml/min BUN/Creatinine Ratio (10-20) Glucose (70-99) mg/dl Calcium (8.5-10.1) mg/dl Total Bilirubin (0.2-1) mg/dl AST (15-37) U/L ALT (12-78) U/L Alkaline Phosphatase (45-117) U/L Total Protein (6.4-8.2) gm/dl Albumin (3.4-5.0) gm/dl Globulin (2.5-4.0) gm/dl Albumin/Globulin Ratio (0.9-2) TSH (0.300-4.500) uIu/ml Free T4 (0.8-1.6) ng/dl HCG, Qual (Negative) Urine Color Urine Appearance (Clear) Urine pH (4.5-7.5) Ur Specific [place] (1.000-1.030) Urine Protein (Negative) Urine Glucose (UA) (Negative) Urine Ketones (Negative) Urine Blood (Negative) Urine Nitrite (Negative) Urine Bilirubin (Negative) Urine Urobilinogen (Negative) Ur Leukocyte Esterase (Negative) Urine WBC (Auto) (0-5) /hpf Urine RBC (Auto) (0-4) /hpf U Hyaline Cast (Auto) (0-5) /lpf U Epithel Cells (Auto) (0-5) /lpf Urine Bacteria (Auto) (Negative) Salicylates (2.8-20) mg/dl Urine Opiates Screen Neg (Neg) Ur Methadone, Qual Neg (Neg) Acetaminophen (10-30) ug/ml Urine Barbiturates Neg (Neg) Ur Phencyclidine (PCP) Neg (Neg) U Amphetamin/Meth Scrn Neg (Neg) MDMA (Ecstasy) Screen Neg (Neg) U Benzodiazepines Scrn Neg (Neg) Ur Cocaine Metabolite Neg (Neg) U Marijuana (THC) Screen Pos H (Neg) Ethyl Alcohol mg/dL (0-3) mg/dl Discharge Plan Visit Data Chief Complaint: Mental Health Evaluation Stated Complaint: SUCIDAL; MENTAL HEALTH EVALUATION ED Provider: Ike Lindsay Discharge Problem: Suicidal ideation Patient Disposition: Still a Patient Condition: Good Forms Stand Alone Forms: My [facility], Suicide Prevention Resources Prescriptions Prescriptions: No Action venlafaxine 150 mg capsule,extended release 24hr 150 mg PO DAILY Qty: 30 RF: 5 pantoprazole 40 mg tablet,delayed release (DR/EC) See Rx Instructions .ROUTE .COMPLEX Qty: 30 RF: 11 Trintellix 10 mg tablet 10 mg PO DAILY RF: 0 naproxen 250 mg tablet 125 mg PO Q12H PRN (Reason: Pain, Mild) RF: 0 lamotrigine 200 mg tablet 200 mg PO DAILY RF: 0 trazodone 100 mg tablet 100 mg PO DAILY RF: 0 hydroxyzine pamoate [Vistaril] 50 mg capsule 50 mg PO TID PRNRF: 0 Cryselle (28) 0.3-30 mg-mcg tablet 1 tab PO DAILY Qty: 28 RF: 12 Referrals Referrals: PCP,NO [Primary Care Provider] -
[2020-11-29 22:09] LABS: Basophils # (auto) 0.04 K/uL (0-0.2); Basophils % (auto) 0.4 %; Eosinophils # (auto) 0.37 K/uL (0-0.5); Eosinophils % (auto) 3.5 %; Hematocrit (blood only) 41.9 % (37-47); Hemoglobin 14.5 g/dL (12.0-16.0); Immature Granulocytes # (auto) 0.04 K/uL (0.00-0.02); Immature Granulocytes % (auto) 0.4 %; Lymphocytes # (auto) 3.01 K/uL (1.2-3.4); Lymphocytes % (auto) 28.3 %; Mean Corpuscular Hemoglobin 30.1 pg (25-34); Mean Corpuscular Hgb Conc 34.6 g/dL (32-36); Mean Corpuscular Volume 86.9 fL (80-100); Mean Platelet Volume 11.4 fL (7.4-10.4); Monocytes % (auto) 4.7 %; Neutrophils # (auto) 6.69 K/uL (1.4-6.5); Neutrophils % (auto) 62.7 %; Platelet Count 318 K/uL (130-400); RDW Coefficient of Variation 12.9 % (11.5-14.5); RDW Standard Deviation 41.3 fL (36.4-46.3); Red Blood Count 4.82 M/uL (4.2-5.4); White Blood Count 10.65 K/uL (4.8-10.8)
[2020-11-29 22:27] LABS: Albumin Level 3.9 gm/dl (3.4-5.0); BUN Creatinine Ratio 7.9 (10-20); Creatinine Clr Calc Pharmacy 81.3 ml/min; Est GFR (African American) 83.3 ml/min; Est GFR (Non-African American) 71.9 ml/min; Potassium 3.6 mmol/L (3.5-5.1)
[2020-11-29 22:35] LABS: Acetaminophen < 2 ug/ml (10-30)
[2020-11-29 22:36] LABS: Salicylate < 1.7 mg/dl (2.8-20)
[2020-11-29 22:37] LABS: Albumin Globulin Ratio 1.1 (0.9-2); Bilirubin,Total 0.2 mg/dl (0.2-1); Globulin 3.6 gm/dl (2.5-4.0); Thyroid Stimulating Hormone 5.64 uIu/ml (0.300-4.500); Total Protein 7.5 gm/dl (6.4-8.2)
[2020-11-29 22:41] LABS: Pregnancy Test, Serum Negative (Negative)
[2020-11-29 22:53] LABS: T4 Free Thyroxine 0.78 ng/dl (0.8-1.6)
[2020-11-29 23:07] LABS: Appearance Urine Clear (Clear); Bacteria Urine Automated Negative (Negative); Bilirubin Urine Negative (Negative); Blood Urine Negative (Negative); Color Urine Yellow; Epithelial Cell Urine Auto 20-30 /lpf (0-5); Glucose Urine UA Negative (Negative); Ketones Urine Negative (Negative); Leukocyte Esterase Urine Trace (Negative); Nitrite Urine Negative (Negative); Protein Urine Negative (Negative); RBC Urine Automated 0-4 /hpf (0-4); Specific Gravity Urine 1.011 (1.000-1.030); Urobilinogen Urine Negative (Negative)
[2020-11-29 23:23] LABS: Amphetamines+Metham, Urine Neg (Neg); Barbiturates, Urine Neg (Neg); Benzodiazepine, Urine Neg (Neg); Cocaine, Urine Neg (Neg); MDMA (Ecstacy), Urine Neg (Neg); Methadone, Urine Neg (Neg); Opiate, Urine Neg (Neg); Phencyclidine, Urine Neg (Neg)
--- NOTE | 2020-11-30 02:34 | Emergency Department Note ---
ED Visit Note Received patient in signout. History and physical verified by me. Pt undergoing bedsearch. Pt accepted to [address] [place] [address]. .
[2020-11-30] MEDS ORDERED: BISMUTH SUBSALICYLATE LIQD 236 ML PO PRN (05:36)
[2020-11-30] MEDS ORDERED: hydrOXYzine HCl 25 MG TAB PO PRN (05:36)
[2020-11-30] MEDS ORDERED: MAGNESIUM HYDROXIDE SUSP 30 ML UDC PO PRN (05:36)
[2020-11-30] MEDS ORDERED: ACETAMINOPHEN 325 MG TAB PO PRN (05:36)
[2020-11-30] MEDS ORDERED: SODIUM CHLORIDE 0.65% NA SOLN 45 ML (OCEAN) PRN (05:36)
[2020-11-30] MEDS ORDERED: ALUMINUM/MAGNESIUM SUSP 30 ML UDC PO PRN (05:36)
[2020-11-30] MEDS ORDERED: traZODone HCL 100 MG TAB PO PRN (06:31)
[2020-11-30] MEDS ORDERED: lamoTRIgine 25 MG TAB PO SCH (09:00)
[2020-11-30] MEDS: PANTOprazole 40 MG TAB PO SCH (09:26)
[2020-11-30] MEDS: NORGESTREL PO SCH (09:26)
[2020-11-30] MEDS: ETHINYL ESTRADIOL PO SCH (09:26)
[2020-11-30] MEDS: DULoxetine HCL 20 MG CAP PO SCH (09:27)
[2020-11-30] MEDS: VENLAFAXINE HCL XR 37.5 MG CAPXR PO SCH (09:27)
[2020-11-30] MEDS: TOPIRAMATE 50 MG TAB PO SCH ×2 (09:27→21:21)
[2020-11-30] MEDS ORDERED: lamoTRIgine 25 MG TAB PO STA (11:35)
--- NOTE | 2020-11-30 13:47 | History & Physical ---
Date of Service November 30, 2020 Impression / Recommendations Impression 25-year-old female with significant history of depression and mood instability with past history of multiple medication trials with minimal effectiveness and status post admissions which are very similar presents to the ER status post attempted overdose with Ativan which she did not ingest because of boyfriends interruption patient also with history of self cutting behaviors, and reports difficulty aligning with providers regarding medication. Given her significant mood instability easy irritability and reporting that she could go from 1-10 in just a few seconds may may point to a diagnosis of mood instability rule out bipolar 2. Patient is current diagnosis of major depression however has very minimal relief with all the antidepressants he has been given in the past and seems to benefit more from mood stabilizers many of which have been attempted including Abilify 2 she has allergies and regular patient does admit to being resistant about multiple medications. (1) Suicidal ideation: Contract for safety on the unit passive suicidal thoughts remain no active suicidal thoughts we will continue to monitor and continue current medication. Not open to lithium because of the weight gain Present on Admission?: Yes (2) Depression: Patient reports irritability has has significant symptom for the depression help there is reactivity in her mood and a lot of her mood symptoms tend to be associated with psychosocial stressors at work of relationships of housing patient reports a history of trauma which she is guarded about would continue her mood stabilizers she is on 100 mg of topiramate would increase Lamictal to 300 with a plan of increasing to 350 since the patient seems to think it works very well and is open to taking it would eventually plan to discontinue Cymbalta as patient does admit to more mood fluctuations since it started and unclear if it is helpful. Depression Type: unspecified Qualified Code(s): F32.9 - Major depressive disorder, single episode, unspecified Present on Admission?: Yes (3) Anxiety: Long-term anxiety persistent we will add gabapentin seen 300 mg twice daily increase to 600 twice daily over the next few days. Plan to use beta- elmira patient has used before to help with anxiety and reports it being effective. Present on Admission?: Yes (4) Hypothyroid: Medical team consult for recommendations. 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 Needs: Therapy ongoing Risk Factors Assessment Male: No : Yes Do You Have Access To A Gun?: No Previous Attempt: Yes Previous Psychiatric Hospitalization: Yes Hopelessness: Yes Protective Factors Assessment Employed: Yes ([employer] - [place]) Stable Relationships: No Psychiatric History Identifying Data MARGARETH CONN is a 25-year-old F who currently lives in with her boyfriend, has a history of depression, anxiety, eating disorders and self injury and was admitted on 11/30/20 05:36 on a 201 voluntary commitment for, suicidal ideation with an attempt to overdose by ingestion of Ativan. Chief Complaint "[I feel so empty inside I do not think anything is working I feel like I do not belong anywhere]". History of Present Illness Margareth Conn is a 25-year old single female with a past history of anxiety and depression and previous psychiatric admissions. She presents today with an overdose attempt on Ativan which belonged to a friend in the context of arguments with her boyfriend stressors at work and recently moved in with her boyfriend. Patient reports that she has been dating this particular boyfriend for about a year and they decided to move in a few weeks ago, she reports the move has been very stressful because [place] patient reports she attempted to overdose on Ativan prior to admission around noon yesterday, but her boyfriend stopped her from ingesting the pills. Reports that she has struggled with depression "for a long time." For the last few weeks, she has had increasing depression and some suicidal thoughts. 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 She had an argument with her boyfriend and this pushed her into thinking about suicide. Patient reports that she does not think her medications are working and admits to having a long history of ambivalence with medication and also feeling that her current prescriber which she has had for several months is just" pushing drugs on me" she reports multiple medication trials with minimal effect very significant allergy with Abilify but all the other medications do not really seem to work that much" patient today reports ongoing passive thoughts of suicide denies any active thoughts. Patient today when asked where she got the Ativan reports that it "belonged to my friend who gave them to me and that was my emergency stash" patient reports having worsening anxiety over the years however has not been able to get Ativan prescribed to her, because of past behaviors. On admission patient reports ongoing depression ongoing anxiety feelings of hopelessness. Patient reports ongoing passive thoughts but denies any active thoughts of suicide while on the unit patient not able to fully endorse future orientation however contracts for safety on the unit at this time. Patient denies auditory or visual hallucinations no evidence of response to internal stimuli. Patient also denies current binging behaviors feels that topiramate helps. Patient denies any purging behaviors. Patient admits to ongoing anxiety occasional escalating into a panic attack. Past Psychiatric History Previous Psych History: Very similar to previous admissions last admission was in 2018 for similar episode of suicidal ideation with attempted overdose in the context of living with her then boyfriend. Multiple past medication trials most of the serotonin uptake or inhibitors SSRIs, allergies to Abilify, has been Effexor after 300 mg was ineffective. other meds include Vraylar Current Psychiatric Diagnosis: MDD, R/O Bipolar II disorder, Mood disorder unspecified Outpatient Services: Patient currently sees eye physician resident care assistant with [facility] has been at several other psychiatrists in the past including [facility] Previous Psych Admissions: As noted above 2017 2016 most recent Do You Have Access To A Gun?: No History of Previous Suicide Attempt: Yes Describe Attempts in the Past: Few years ago - OD on Nyquil and Ativan Past Medication Trials: Multiple past medication trials. Multiple SSRIs Prozac Paxil Celexa Lexapro, mood stabilizers including Lamictal topiramate, other medications Trintellix, has been on Effexor up to 300 mg and weaned off. Has been on Vraylar and risperidone. Past Head Trauma/Neuro History History of Concussion/Seizure: No Allergies Allergy/AdvReac Type Severity Reaction Status Date / Time adhesive AdvReac Intermediate RASH Verified 06/17/20 07:59 nickel AdvReac Intermediate RASH Verified 06/17/20 07:59 aripiprazole AdvReac Mild NAUSEA/VOMI Verified 06/17/20 07:59 TING Home Medications Medication Instructions Recorded Confirmed Type naproxen 250 mg tablet 125 mg PO Q12H PRN tab 02/24/19 11/30/20 History hydroxyzine pamoate 50 mg capsule 50 mg PO TID PRN 03/03/20 11/30/20 History lamotrigine 200 mg tablet 200 mg PO DAILY 03/03/20 11/30/20 History norgestrel 0.3 mg-ethinyl 1 tab PO DAILY #28 tab 03/03/20 11/30/20 Rx estradiol 30 mcg tablet trazodone 100 mg tablet 100 mg PO DAILY PRN 03/03/20 11/30/20 History Flintstones Complete See Rx Instructions .ROUTE .COMPLEX 11/30/20 11/30/20 History Probiotic See Rx Instructions .ROUTE .COMPLEX 11/30/20 11/30/20 History duloxetine 20 mg PO DAILY 11/30/20 11/30/20 History lamotrigine 50 mg PO DAILY 11/30/20 11/30/20 History pantoprazole 40 mg PO DAILY 11/30/20 11/30/20 History topiramate 50 mg PO BID 11/30/20 11/30/20 History venlafaxine 37.5 mg PO DAILY 11/30/20 11/30/20 History Family History Family History of: Doesn't Know Alcohol History Hx of Alcohol Use Over the Past 12 Months: Yes ("very rarely") AUDIT Total Score: 1 Smoking Use Smoking Status: Never smoker Substance History Hx of Prescription Med Misuse Over the Past 12 Months: No Hx of Over the Counter Med Misuse Over the Past 12 Months: No Hx of Inhalent Misuse Over the Past 12 Months: No Hx of Organic Substance Use Over the Past 12 Months: Yes (Marijuana - daily) Hx of Illegal Substances/Street Drug Use Over Past 12 Months: No Problems as a Result of Past Substance Use: None Identified Personal History Living Arrangements: Apartment Highest Grade Completed: Vocational Training Marital Status: Living w/ Signif. Other Beliefs That Will Affect Care: None Hx Legal Problems: No Hx Traumatic Life Events: Yes Patient History Medical History Abnormal uterine bleeding Acid reflux Asthma Eating disorder Encounter for gynecological examination without abnormal finding Irregular menses Lymphadenopathy OCD (obsessive compulsive disorder) Oral contraceptive pill surveillance Pelvic cramping Sinus tachycardia Stress incontinence Surgical History H/O oral surgery Family History Grandmother (Maternal) Hypertension Denies family history of Pancreatic cancer Ovarian cancer Prostate cancer Breast cancer Colorectal cancer Uterine cancer Social History Smoking Status: Never smoker Hx Alcohol Use: Yes (social) Hx Substance Use: No Preferred Language: Micronesian Communication Ability: Effective Head Bucker Required: No Beliefs That Will Affect Care: None Feels Safe at Home: Yes Dental Care, Regularly: Yes Physical Activity Frequency: Does not Exercise Seatbelt Use: always Sunscreen Use: Yes Assistive Devices: None Physical Exam Psychiatric: Orientation: alert, oriented x 3, oriented to person, oriented to time and cooperative Apperance: appropriately dressed Eye Contact: good eye contact Motor Behavior: steady gait and station Speech: normal rate/rhythm/volume of speech Affect: euthymic affect and + anxious affect Mood: + anxious mood and + irritable mood Thought Process: goal directed thought process, linear/logical thought process and clear/coherent thought process Thought Content: + preoccupation Suicidal Thoughts: denies suicidal plan; + reports suicidal thoughts Homicidal Thoughts: denies homicidal thoughts and denies homicidal plan Hallucinations: no auditory hallucinations and no visual hallucinations Cognition: remote memory grossly intact and attention grossly intact Estimated Intelligence: consistent with education level Insight: + limited insight Judgement: + limited judgement Vital Signs (Past 24 Hours): Last Vital Signs Temp 36.8 C 11/30/20 06:33 Pulse 93 H 11/30/20 06:33 Resp 18 11/30/20 06:33 BP 124/91 11/30/20 06:33 Pulse Ox 97 11/29/20 23:10 Physical Examination: The history and physical exam verified by Dr. Darek Haynes, done on 12/01/2020 has been reviewed and for the purposes of this admission will suffice and is seen as correct. Results & Data ([facility]) Laboratory Results Laboratory Results - last 24 hr 11/29/20 11/29/20 11/29/20 21:52 21:52 21:52 WBC 10.65 RBC 4.82 Hgb 14.5 Hct 41.9 MCV 86.9 MCH 30.1 MCHC 34.6 RDW Std Deviation 41.3 RDW Coeff of Radhika 12.9 Plt Count 318 MPV 11.4 H Immature Gran % (Auto) 0.4 Neut % (Auto) 62.7 Lymph % (Auto) 28.3 Kent % (Auto) 4.7 Eos % (Auto) 3.5 Baso % (Auto) 0.4 Neut # (Auto) 6.69 H Lymph # (Auto) 3.01 Kent # (Auto) 0.50 Eos # (Auto) 0.37 Baso # (Auto) 0.04 Immature Gran # (Auto) 0.04 H Sodium 140 Potassium 3.6 Chloride 111 H Carbon Dioxide 17 L Anion Gap 12.0 H BUN 8 Creatinine 1.06 Est Cr Clr Drug Dosing 81.3 Est GFR ( Amer) 83.3 Est GFR (Non-Af Amer) 71.9 BUN/Creatinine Ratio 7.9 L Glucose 121 H Calcium 9.0 Total Bilirubin 0.2 AST 10 L ALT 32 Alkaline Phosphatase 93 Total Protein 7.5 Albumin 3.9 Globulin 3.6 Albumin/Globulin Ratio 1.1 TSH 5.640 H Free T4 0.78 L HCG, Qual Urine Color Urine Appearance Urine pH Ur Specific Addison Urine Protein Urine Glucose (UA) Urine Ketones Urine Blood Urine Nitrite Urine Bilirubin Urine Urobilinogen Ur Leukocyte Esterase Urine WBC (Auto) Urine RBC (Auto) U Hyaline Cast (Auto) U Epithel Cells (Auto) Urine Bacteria (Auto) Salicylates < 1.7 L Urine Opiates Screen Ur Methadone, Qual Acetaminophen < 2 L Urine Barbiturates Ur Phencyclidine (PCP) U Amphetamin/Meth Scrn MDMA (Ecstasy) Screen U Benzodiazepines Scrn Ur Cocaine Metabolite U Marijuana (THC) Screen U Marijuana THC Carboxy Drug Screen Comment Ethyl Alcohol mg/dL COVID-19 Eval Order SARS-CoV-2, RNA, NAAT 11/29/20 11/29/20 11/29/20 21:52 21:52 22:39 WBC RBC Hgb Hct MCV MCH MCHC RDW Std Deviation RDW Coeff of Radhika Plt Count MPV Immature Gran % (Auto) Neut % (Auto) Lymph % (Auto) Kent % (Auto) Eos % (Auto) Baso % (Auto) Neut # (Auto) Lymph # (Auto) Kent # (Auto) Eos # (Auto) Baso # (Auto) Immature Gran # (Auto) Sodium Potassium Chloride Carbon Dioxide Anion Gap BUN Creatinine Est Cr Clr Drug Dosing Est GFR ( Amer) Est GFR (Non-Af Amer) BUN/Creatinine Ratio Glucose Calcium Total Bilirubin AST ALT Alkaline Phosphatase Total Protein Albumin Globulin Albumin/Globulin Ratio TSH Free T4 HCG, Qual Negative Urine Color Yellow Urine Appearance Clear Urine pH 7.0 Ur Specific Addison 1.011 Urine Protein Negative Urine Glucose (UA) Negative Urine Ketones Negative Urine Blood Negative Urine Nitrite Negative Urine Bilirubin Negative Urine Urobilinogen Negative Ur Leukocyte Esterase Trace H Urine WBC (Auto) 1-5 Urine RBC (Auto) 0-4 U Hyaline Cast (Auto) 1-5 U Epithel Cells (Auto) 20-30 H Urine Bacteria (Auto) Negative Salicylates Urine Opiates Screen Ur Methadone, Qual Acetaminophen Urine Barbiturates Ur Phencyclidine (PCP) U Amphetamin/Meth Scrn MDMA (Ecstasy) Screen U Benzodiazepines Scrn Ur Cocaine Metabolite U Marijuana (THC) Screen U Marijuana THC Carboxy Drug Screen Comment Ethyl Alcohol mg/dL < 3.0 COVID-19 Eval Order SARS-CoV-2, RNA, NAAT 11/29/20 11/29/20 11/30/20 22:39 22:39 03:15 WBC RBC Hgb Hct MCV MCH MCHC RDW Std Deviation RDW Coeff of Radhika Plt Count MPV Immature Gran % (Auto) Neut % (Auto) Lymph % (Auto) Kent % (Auto) Eos % (Auto) Baso % (Auto) Neut # (Auto) Lymph # (Auto) Kent # (Auto) Eos # (Auto) Baso # (Auto) Immature Gran # (Auto) Sodium Potassium Chloride Carbon Dioxide Anion Gap BUN Creatinine Est Cr Clr Drug Dosing Est GFR ( Amer) Est GFR (Non-Af Amer) BUN/Creatinine Ratio Glucose Calcium Total Bilirubin AST ALT Alkaline Phosphatase Total Protein Albumin Globulin Albumin/Globulin Ratio TSH Free T4 HCG, Qual Urine Color Urine Appearance Urine pH Ur Specific Addison Urine Protein Urine Glucose (UA) Urine Ketones Urine Blood Urine Nitrite Urine Bilirubin Urine Urobilinogen Ur Leukocyte Esterase Urine WBC (Auto) Urine RBC (Auto) U Hyaline Cast (Auto) U Epithel Cells (Auto) Urine Bacteria (Auto) Salicylates Urine Opiates Screen Neg Ur Methadone, Qual Neg Acetaminophen Urine Barbiturates Neg Ur Phencyclidine (PCP) Neg U Amphetamin/Meth Scrn Neg MDMA (Ecstasy) Screen Neg U Benzodiazepines Scrn Neg Ur Cocaine Metabolite Neg U Marijuana (THC) Screen Pos H U Marijuana THC Carboxy Pending Drug Screen Comment Pending Ethyl Alcohol mg/dL COVID-19 Eval [facility] SARS-CoV-2, RNA, NAAT 11/30/20 03:15 WBC RBC Hgb Hct MCV MCH MCHC RDW Std Deviation RDW Coeff of Radhika Plt Count MPV Immature Gran % (Auto) Neut % (Auto) Lymph % (Auto) Kent % (Auto) Eos % (Auto) Baso % (Auto) Neut # (Auto) Lymph # (Auto) Kent # (Auto) Eos # (Auto) Baso # (Auto) Immature Gran # (Auto) Sodium Potassium Chloride Carbon Dioxide Anion Gap BUN Creatinine Est Cr Clr Drug Dosing Est GFR ( Amer) Est GFR (Non-Af Amer) BUN/Creatinine Ratio Glucose Calcium Total Bilirubin AST ALT Alkaline Phosphatase Total Protein Albumin Globulin Albumin/Globulin Ratio TSH Free T4 HCG, Qual Urine Color Urine Appearance Urine pH Ur Specific Addison Urine Protein Urine Glucose (UA) Urine Ketones Urine Blood Urine Nitrite Urine Bilirubin Urine Urobilinogen Ur Leukocyte Esterase Urine WBC (Auto) Urine RBC (Auto) U Hyaline Cast (Auto) U Epithel Cells (Auto) Urine Bacteria (Auto) Salicylates Urine Opiates Screen Ur Methadone, Qual Acetaminophen Urine Barbiturates Ur Phencyclidine (PCP) U Amphetamin/Meth Scrn MDMA (Ecstasy) Screen U Benzodiazepines Scrn Ur Cocaine Metabolite U Marijuana (THC) Screen U Marijuana THC Carboxy Drug Screen Comment Ethyl Alcohol mg/dL COVID-19 Eval Order SARS-CoV-2, RNA, NAAT NEGATIVE Current Inpatient Medications Current Inpatient Medications: Current Inpatient Medications Acetaminophen (Acetaminophen 325 Mg Tab) 650 mg PO Q4H PRN PRN Reason: Headache or Minor Fever Stop: 12/30/20 05:35 Al Hydrox/Mg Hydrox/Simethicone (Aluminum/Magnesium Susp 30 Ml Udc) 30 ml PO Q4H PRN PRN Reason: GI Upset Stop: 12/30/20 05:35 Bismuth Subsalicylate (Bismuth Subsalicylate Liqd 236 Ml) 15 ml PO PRN PRN PRN Reason: Loose Stool Stop: 12/30/20 05:35 Duloxetine HCl (Duloxetine Hcl 20 Mg Cap) 20 mg PO QAM MAXIMILIAN Stop: 12/30/20 08:59 Last Admin: 11/30/20 09:27 Dose: 20 mg Documented by: Hydroxyzine HCl (Hydroxyzine Hcl 25 Mg Tab) 50 mg PO HSZ PRN PRN Reason: Insomnia Stop: 12/30/20 05:35 Hydroxyzine HCl (Hydroxyzine Hcl 25 Mg Tab) 25 mg PO Q4H PRN PRN Reason: Anxiety Stop: 12/30/20 05:35 Lamotrigine (Lamotrigine 100 Mg Tab) 300 mg PO QAM MAXIMILIAN Stop: 12/31/20 08:59 Magnesium Hydroxide (Magnesium Hydroxide Susp 30 Ml Udc) 30 ml PO DAILY PRN PRN Reason: Constipation Stop: 12/30/20 05:35 Norgestrel/Ethinyl Estradiol - Non- Formulary Patient's Own Med 1 ea PO DAILY MAXIMILIAN Stop: 12/30/20 08:59 Last Admin: 11/30/20 09:26 Dose: 1 ea Documented by: Pantoprazole Sodium (Pantoprazole 40 Mg Tab) 40 mg PO QAM MAXIMILIAN Stop: 12/30/20 08:59 Last Admin: 11/30/20 09:26 Dose: 40 mg Documented by: Sodium Chloride (Sodium Chloride 0.65% Na Soln 45 Ml ([place])) 1 - 2 sprays NA PRN PRN PRN Reason: Nasal Dryness/Congestion Stop: 12/30/20 05:35 Topiramate (Topiramate 50 Mg Tab) 50 mg PO BID MAXIMILIAN Stop: 12/30/20 08:59 Last Admin: 11/30/20 09:27 Dose: 50 mg Documented by: Trazodone HCl (Trazodone Hcl 100 Mg Tab) 100 mg PO HS PRN PRN Reason: Sleep Stop: 12/30/20 06:30 Venlafaxine HCl (Venlafaxine Hcl Xr 37.5 Mg Capxr) 37.5 mg PO DAILY MAXIMILIAN Stop: 12/30/20 08:59 Last Admin: 11/30/20 09:27 Dose: 37.5 mg Documented by:
[2020-11-30] MEDS: hydrOXYzine HCl 25 MG TAB PO PRN (21:27)
[2020-12-01] MEDS: DULoxetine HCL 20 MG CAP PO SCH (08:42)
[2020-12-01] MEDS: PANTOprazole 40 MG TAB PO SCH (08:43)
[2020-12-01] MEDS: ETHINYL ESTRADIOL PO SCH (08:43)
[2020-12-01] MEDS: VENLAFAXINE HCL XR 37.5 MG CAPXR PO SCH (08:43)
[2020-12-01] MEDS: NORGESTREL PO SCH (08:43)
[2020-12-01] MEDS: lamoTRIgine 100 MG TAB PO SCH (08:43)
[2020-12-01] MEDS: TOPIRAMATE 50 MG TAB PO SCH ×2 (08:43→21:03)
--- NOTE | 2020-12-01 19:09 | Psychiatric Progress Note ---
Date of Service December 01, 2020 Impression / Recommendations Impression 25-year-old female with significant history of depression and mood instability with past history of multiple medication trials with minimal effectiveness and status post admissions which are very similar presents to the ER status post attempted overdose with Ativan which she did not ingest because of boyfriends interruption patient also with history of self cutting behaviors, and reports difficulty aligning with providers regarding medication. Given her significant mood instability easy irritability and reporting that she could go from 1-10 in just a few seconds may may point to a diagnosis of mood instability rule out bipolar 2. Patient is current diagnosis of major depression however has very minimal relief with all the antidepressants he has been given in the past and seems to benefit more from mood stabilizers many of which have been attempted including Abilify 2 she has allergies and regular patient does admit to being resistant about multiple medications. (1) Suicidal ideation: 12/01/20- ongoing passive thoughts but denying active suicidal thoughts Contract for safety on the unit passive suicidal thoughts remain no active suicidal thoughts we will continue to monitor and continue current medication. Not open to lithium because of the weight gain (2) Depression: 12/01/20- tolerating increase lamictal - will discontinue cymbalta as this may have been activating her 11/30/20- Patient reports irritability has has significant symptom for the depression help there is reactivity in her mood and a lot of her mood symptoms tend to be associated with psychosocial stressors at work of relationships of housing patient reports a history of trauma which she is guarded about would continue her mood stabilizers she is on 100 mg of topiramate would increase Lamictal to 300 with a plan of increasing to 350 since the patient seems to think it works very well and is open to taking it would eventually plan to discontinue Cymbalta as patient does admit to more mood fluctuations since it started and unclear if it is helpful. (3) Anxiety: - will add low dose propranolol for agitation 11/30/20Long-term anxiety persistent we will add gabapentin seen 300 mg twice daily increase to 600 twice daily over the next few days. Plan to use beta- elmira patient has used before to help with anxiety and reports it being effective. (4) Hypothyroid: Medical team consult for recommendations. 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 Review of Systems Sleep Information Total Hours of Sleep: 6.5 Meal Information Percent Meal Consumed - Breakfast: 50 Percent Meal Consumed - Lunch: 75 Percent Meal Consumed - Dinner: 100 Nutrition Comment: pt. allowed to sleep/early AM admission Subjective Subjective Patient was seen & assessed and interval progress reviewed with nursing and social work. Seen in the milieu spent a lot of time on the phone ongoing low mood per patient but tolerating current medication changes well feels a little bit more stable denies active suicidal thoughts denies homicidal thoughts denies hallucinations Physical Exam Psychiatric Orientation: alert, oriented x 3, oriented to person, oriented to time and cooperative Apperance: appropriately dressed Eye Contact: good eye contact Motor Behavior: steady gait and station Speech: normal rate/rhythm/volume of speech Affect: euthymic affect and + anxious affect Mood: + anxious mood and + irritable mood Thought Process: goal directed thought process, linear/logical thought process and clear/coherent thought process Thought Content: + preoccupation Suicidal Thoughts: denies suicidal plan; + reports suicidal thoughts Homicidal Thoughts: denies homicidal thoughts and denies homicidal plan Hallucinations: no auditory hallucinations and no visual hallucinations Cognition: remote memory grossly intact and attention grossly intact Estimated Intelligence: consistent with education level Insight: + limited insight Judgement: + limited judgement Vital Signs (Past 24 Hours) Last Vital Signs Temp 36.3 C L 12/01/20 06:48 Pulse 90 12/01/20 06:50 Resp 16 12/01/20 06:48 BP 110/74 12/01/20 06:50 Pulse Ox 97 11/29/20 23:10 The history and physical exam verified by Dr. Darek Haynes, done on 12/01/2020 has been reviewed and for the purposes of this admission will suffice and is seen as correct. Results & Data ([facility]) Current Inpatient Medications Current Inpatient Medications: Current Inpatient Medications Acetaminophen (Acetaminophen 325 Mg Tab) 650 mg PO Q4H PRN PRN Reason: Headache or Minor Fever Stop: 12/30/20 05:35 Al Hydrox/Mg Hydrox/Simethicone (Aluminum/Magnesium Susp 30 Ml Udc) 30 ml PO Q4H PRN PRN Reason: GI Upset Stop: 12/30/20 05:35 Bismuth Subsalicylate (Bismuth Subsalicylate Liqd 236 Ml) 15 ml PO PRN PRN PRN Reason: Loose Stool Stop: 12/30/20 05:35 Duloxetine HCl (Duloxetine Hcl 20 Mg Cap) 20 mg PO QAM [facility] Stop: 12/30/20 08:59 Last Admin: 12/01/20 08:42 Dose: 20 mg Documented by: Hydroxyzine HCl (Hydroxyzine Hcl 25 Mg Tab) 50 mg PO HSZ PRN PRN Reason: Insomnia Stop: 12/30/20 05:35 Last Admin: 11/30/20 21:27 Dose: 50 mg Documented by: Hydroxyzine HCl (Hydroxyzine Hcl 25 Mg Tab) 25 mg PO Q4H PRN PRN Reason: Anxiety Stop: 12/30/20 05:35 Lamotrigine (Lamotrigine 100 Mg Tab) 300 mg PO QAM [facility] Stop: 12/31/20 08:59 Last Admin: 12/01/20 08:43 Dose: 300 mg Documented by: Magnesium Hydroxide (Magnesium Hydroxide Susp 30 Ml Udc) 30 ml PO DAILY PRN PRN Reason: Constipation Stop: 12/30/20 05:35 Norgestrel/Ethinyl Estradiol - Non- Formulary Patient's Own Med 1 ea PO DAILY [facility] Stop: 12/30/20 08:59 Last Admin: 12/01/20 08:43 Dose: 1 ea Documented by: Pantoprazole Sodium (Pantoprazole 40 Mg Tab) 40 mg PO QAM [facility] Stop: 12/30/20 08:59 Last Admin: 12/01/20 08:43 Dose: 40 mg Documented by: Sodium Chloride (Sodium Chloride 0.65% Na Soln 45 Ml ([place])) 1 - 2 sprays NA PRN PRN PRN Reason: Nasal Dryness/Congestion Stop: 12/30/20 05:35 Topiramate (Topiramate 50 Mg Tab) 50 mg PO BID [facility] Stop: 12/30/20 08:59 Last Admin: 12/01/20 08:43 Dose: 50 mg Documented by: Trazodone HCl (Trazodone Hcl 100 Mg Tab) 100 mg PO HS PRN PRN Reason: Sleep Stop: 12/30/20 06:30 Venlafaxine HCl (Venlafaxine Hcl Xr 37.5 Mg Capxr) 37.5 mg PO DAILY [facility] Stop: 12/30/20 08:59 Last Admin: 12/01/20 08:43 Dose: 37.5 mg Documented by: Mental Health & Subst Abuse Tx Psychiatrist Name of Psychiatrist: Lane William Psychiatrist's Date of Appointment with Psychiatrist: 12/14/20 Time of Appointment with Psychiatrist: 9:20a.m Psychiatric Appointment Comment: [id number] [place] [address] Therapist Name of Therapist: Darnell Mariscal Therapist's Date of Therapist Appointment: 12/04/20 Time of Therapist Appointment: 4 p.m. Therapy Appointment Comment: [address] [facility] [place] [address] Carbonizer Tester Name of Carbonizer Tester: None Post Discharge Appointments Primary Care Physician Name Of Family Doctor: WENDY Larsen Primary [facility] Date of Appointment with PCP: 12/24/20 Time of Appointment with PCP: 4:20 p.m Provider Appointment Comment: [id number] [place] [address] Contact Information Discharge Discharge Address: [address] [place], [place] [id number] (1) Depression Depression Type: unspecified Qualified Code(s): F32.9 - Major depressive disorder, single episode, unspecified
[2020-12-01] MEDS ORDERED: PROPRANOLOL HCL 10 MG TAB PO PRN (19:10)
[2020-12-01] MEDS: hydrOXYzine HCl 25 MG TAB PO PRN (21:28)
[2020-12-02 08:29] LABS: Marijuana Quant, GCMS Urine 451 ng/mL (<5)
[2020-12-02] MEDS: lamoTRIgine 100 MG TAB PO SCH (08:43)
[2020-12-02] MEDS: PROPRANOLOL HCL 10 MG TAB PO SCH (08:44)
[2020-12-02] MEDS: NORGESTREL PO SCH (08:44)
[2020-12-02] MEDS: PANTOprazole 40 MG TAB PO SCH (08:44)
[2020-12-02] MEDS: ETHINYL ESTRADIOL PO SCH (08:44)
[2020-12-02] MEDS: TOPIRAMATE 50 MG TAB PO SCH ×2 (08:45→21:34)
[2020-12-02] MEDS: VENLAFAXINE HCL XR 37.5 MG CAPXR PO SCH (08:45)
--- NOTE | 2020-12-02 20:00 | Psychiatric Progress Note ---
Date of Service December 02, 2020 Impression / Recommendations Impression 25-year-old female with significant history of depression and mood instability with past history of multiple medication trials with minimal effectiveness and status post admissions which are very similar presents to the ER status post attempted overdose with Ativan which she did not ingest because of boyfriends interruption patient also with history of self cutting behaviors, and reports difficulty aligning with providers regarding medication. Given her significant mood instability easy irritability and reporting that she could go from 1-10 in just a few seconds may may point to a diagnosis of mood instability rule out bipolar 2. Patient is current diagnosis of major depression however has very minimal relief with all the antidepressants he has been given in the past and seems to benefit more from mood stabilizers many of which have been attempted including Abilify 2 she has allergies and regular patient does admit to being resistant about multiple medications. (1) Suicidal ideation: 12/01/20- ongoing passive thoughts but denying active suicidal thoughts Contract for safety on the unit passive suicidal thoughts remain no active suicidal thoughts we will continue to monitor and continue current medication. Not open to lithium because of the weight gain (2) Depression: Consider low-dose Latuda. 12/01/20- tolerating increase lamictal - will discontinue cymbalta as this may have been activating her 11/30/20- Patient reports irritability has has significant symptom for the depression help there is reactivity in her mood and a lot of her mood symptoms tend to be associated with psychosocial stressors at work of relationships of housing patient reports a history of trauma which she is guarded about would continue her mood stabilizers she is on 100 mg of topiramate would increase Lamictal to 300 with a plan of increasing to 350 since the patient seems to think it works very well and is open to taking it would eventually plan to discontinue Cymbalta as patient does admit to more mood fluctuations since it started and unclear if it is helpful. (3) Anxiety: - will add low dose propranolol for agitation 11/30/20Long-term anxiety persistent we will add gabapentin seen 300 mg twice daily increase to 600 twice daily over the next few days. Plan to use beta- elmira patient has used before to help with anxiety and reports it being effective. (4) Hypothyroid: Medical team consult for recommendations. 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 Review of Systems Sleep Information Total Hours of Sleep: 6.5 Meal Information Percent Meal Consumed - Breakfast: 100 Percent Meal Consumed - Lunch: 100 Percent Meal Consumed - Dinner: 75 Nutrition Comment: pt. allowed to sleep/early AM admission Subjective Subjective Patient was seen & assessed and interval progress reviewed with treatment team nursing and social work. Patient denies side effects from current medication she does feel that things may be getting better she however is interested in taking an FMLA discussed also with patient the issue of staff member on her floor bullying "" her patient has reported this to her manager knowledge before believe believes it is a significant trigger for her discussed with patient patient open to treatment team discussing with his her manager knowledge as a trigger for her mental health issues no immediate thoughts of suicide ongoing passive thoughts of no active thoughts no hallucinations Physical Exam Psychiatric Orientation: alert, oriented x 3, oriented to person, oriented to time and cooperative Apperance: appropriately dressed Eye Contact: good eye contact Motor Behavior: steady gait and station Speech: normal rate/rhythm/volume of speech Affect: euthymic affect and + anxious affect Mood: + anxious mood and + irritable mood Thought Process: goal directed thought process, linear/logical thought process and clear/coherent thought process Thought Content: + preoccupation Suicidal Thoughts: denies suicidal plan; + reports suicidal thoughts Homicidal Thoughts: denies homicidal thoughts and denies homicidal plan Hallucinations: no auditory hallucinations and no visual hallucinations Cognition: remote memory grossly intact and attention grossly intact Estimated Intelligence: consistent with education level Insight: + limited insight Judgement: + limited judgement Vital Signs (Past 24 Hours) Last Vital Signs Temp 36.7 C 12/02/20 06:50 Pulse 85 12/02/20 06:52 Resp 16 12/02/20 06:50 BP 103/70 12/02/20 06:52 Pulse Ox 97 11/29/20 23:10 The history and physical exam verified by Dr. Darek Haynes, done on 12/01/2020 has been reviewed and for the purposes of this admission will suffice and is seen as correct. Results & Data ([facility]) Laboratory Results Laboratory Results - last 24 hr 11/29/20 22:39 U Marijuana THC Carboxy [address] H Drug Screen Comment SEE NOTE Current Inpatient Medications Current Inpatient Medications: Current Inpatient Medications Acetaminophen (Acetaminophen 325 Mg Tab) 650 mg PO Q4H PRN PRN Reason: Headache or Minor Fever Stop: 12/30/20 05:35 Al Hydrox/Mg Hydrox/Simethicone (Aluminum/Magnesium Susp 30 Ml Udc) 30 ml PO Q4H PRN PRN Reason: GI Upset Stop: 12/30/20 05:35 Bismuth Subsalicylate (Bismuth Subsalicylate Liqd 236 Ml) 15 ml PO PRN PRN PRN Reason: Loose Stool Stop: 12/30/20 05:35 Hydroxyzine HCl (Hydroxyzine Hcl 25 Mg Tab) 50 mg PO HSZ PRN PRN Reason: Insomnia Stop: 12/30/20 05:35 Last Admin: 12/01/20 21:28 Dose: 50 mg Documented by: Hydroxyzine HCl (Hydroxyzine Hcl 25 Mg Tab) 25 mg PO Q4H PRN PRN Reason: Anxiety Stop: 12/30/20 05:35 Lamotrigine (Lamotrigine 100 Mg Tab) 300 mg PO QAM [facility] Stop: 12/31/20 08:59 Last Admin: 12/02/20 08:43 Dose: 300 mg Documented by: Magnesium Hydroxide (Magnesium Hydroxide Susp 30 Ml Udc) 30 ml PO DAILY PRN PRN Reason: Constipation Stop: 12/30/20 05:35 Norgestrel/Ethinyl Estradiol - Non- Formulary Patient's Own Med 1 ea PO DAILY [facility] Stop: 12/30/20 08:59 Last Admin: 12/02/20 08:44 Dose: 1 ea Documented by: Pantoprazole Sodium (Pantoprazole 40 Mg Tab) 40 mg PO QAM [facility] Stop: 12/30/20 08:59 Last Admin: 12/02/20 08:44 Dose: 40 mg Documented by: Propranolol HCl (Propranolol Hcl 10 Mg Tab) 10 mg PO QAM [facility] Stop: 01/01/21 08:59 Last Admin: 12/02/20 08:44 Dose: 10 mg Documented by: Propranolol HCl (Propranolol Hcl 10 Mg Tab) 10 mg PO Q6 PRN PRN Reason: Anxiety Stop: 12/31/20 19:09 Sodium Chloride (Sodium Chloride 0.65% Na Soln 45 Ml ([place])) 1 - 2 sprays NA PRN PRN PRN Reason: Nasal Dryness/Congestion Stop: 12/30/20 05:35 Topiramate (Topiramate 50 Mg Tab) 50 mg PO BID [facility] Stop: 12/30/20 08:59 Last Admin: 12/02/20 08:45 Dose: 50 mg Documented by: Trazodone HCl (Trazodone Hcl 100 Mg Tab) 100 mg PO HS PRN PRN Reason: Sleep Stop: 12/30/20 06:30 Venlafaxine HCl (Venlafaxine Hcl Xr 37.5 Mg Capxr) 37.5 mg PO DAILY [facility] Stop: 12/30/20 08:59 Last Admin: 12/02/20 08:45 Dose: 37.5 mg Documented by: Mental Health & Subst Abuse Tx Psychiatrist Name of Psychiatrist: Lane William Psychiatrist's Date of Appointment with Psychiatrist: 12/14/20 Time of Appointment with Psychiatrist: 9:20a.m Psychiatric Appointment Comment: [id number] [place] [address] Therapist Name of Therapist: Darnell Mariscal Therapist's Date of Therapist Appointment: 12/04/20 Time of Therapist Appointment: 4 p.m. Therapy Appointment Comment: [address] [facility] [address] Director Of Family Service Center Name of Director Of Family Service Center: None Post Discharge Appointments Primary Care Physician Name Of Family Doctor: WENDY Larsen Primary Care Date of Appointment with PCP: 12/24/20 Time of Appointment with PCP: 4:20 p.m Provider Appointment Comment: [id number] [facility] [place] [address] Contact Information Discharge Discharge Address: [address] [place] [address] (1) Depression Depression Type: unspecified Qualified Code(s): F32.9 - Major depressive disorder, single episode, unspecified
[2020-12-02] MEDS: hydrOXYzine HCl 25 MG TAB PO PRN (21:42)
[2020-12-02] MEDS ORDERED: LURASIDONE HCL 40 MG TAB PO SCH (22:00)
[2020-12-03] MEDS: lamoTRIgine 100 MG TAB PO SCH (07:57)
[2020-12-03] MEDS: NORGESTREL PO SCH (07:58)
[2020-12-03] MEDS: PROPRANOLOL HCL 10 MG TAB PO SCH (07:58)
[2020-12-03] MEDS: ETHINYL ESTRADIOL PO SCH (07:58)
[2020-12-03] MEDS: VENLAFAXINE HCL XR 37.5 MG CAPXR PO SCH (07:59)
[2020-12-03] MEDS: PANTOprazole 40 MG TAB PO SCH (07:59)
[2020-12-03] MEDS: TOPIRAMATE 50 MG TAB PO SCH ×2 (07:59→21:01)
--- NOTE | 2020-12-03 19:10 | Psychiatric Progress Note ---
Date of Service December 03, 2020 Impression / Recommendations Impression 25-year-old female with significant history of depression and mood instability with past history of multiple medication trials with minimal effectiveness and status post admissions which are very similar presents to the ER status post attempted overdose with Ativan which she did not ingest because of boyfriends interruption patient also with history of self cutting behaviors, and reports difficulty aligning with providers regarding medication. Given her significant mood instability easy irritability and reporting that she could go from 1-10 in just a few seconds may may point to a diagnosis of mood instability rule out bipolar 2. Patient is current diagnosis of major depression however has very minimal relief with all the antidepressants he has been given in the past and seems to benefit more from mood stabilizers many of which have been attempted including Abilify 2 she has allergies and regular patient does admit to being resistant about multiple medications. (1) Suicidal ideation: 12/01/20- ongoing passive thoughts but denying active suicidal thoughts Contract for safety on the unit passive suicidal thoughts remain no active suicidal thoughts we will continue to monitor and continue current medication. Not open to lithium because of the weight gain (2) Depression: 12/03/20- patient reports past history of having problems with Latuda. Reports her main problem is anxiety she feels her mood has improved significantly. Denies suicidal thoughts. Continue Lamictal plan to consider increasing Lamic maurisio in the community to 350 mg. Continue propanolol she finds this helpful for anxiety. We will add gabapentin 300 mg twice daily for anxiety may provide mild mood stability. Patient can continue this on an outpatient with the plans increase. 12/02/20 -Consider low-dose Latuda. 12/01/20- tolerating increase lamictal - will discontinue cymbalta as this may have been activating her 11/30/20- Patient reports irritability has has significant symptom for the depression help there is reactivity in her mood and a lot of her mood symptoms tend to be associated with psychosocial stressors at work of relationships of housing patient reports a history of trauma which she is guarded about would continue her mood stabilizers she is on 100 mg of topiramate would increase Lamictal to 300 with a plan of increasing to 350 since the patient seems to think it works very well and is open to taking it would eventually plan to discontinue Cymbalta as patient does admit to more mood fluctuations since it started and unclear if it is helpful. (3) Anxiety: 12/03/20- patient reports past history of having problems with Latuda. Reports her main problem is anxiety she feels her mood has improved significantly. Denies suicidal thoughts. Continue Lamictal plan to consider increasing Lamictal in the community to 350 mg. Continue propanolol she finds this helpful for anxiety. We will add gabapentin 300 mg twice daily for anxiety may provide mild mood stability. Patient can continue this on an outpatient with the plans increase. - will add low dose propranolol for agitation 11/30/20Long-term anxiety persistent we will add gabapentin seen 300 mg twice daily increase to 600 twice daily over the next few days. Plan to use beta- elmira patient has used before to help with anxiety and reports it being effective. (4) Hypothyroid: Medical team consult for recommendations. 12/03/2020 patient will follow-up with her primary care as an outpatient. 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 - [place]) Stable Relationships: No Interval History Chief Complaint "I feel much, I think I am doing better []". Review of Systems Sleep Information Total Hours of Sleep: 7.25 Meal Information Percent Meal Consumed - Breakfast: 75 Percent Meal Consumed - Lunch: 50 Percent Meal Consumed - Dinner: 75 Nutrition Comment: pt. allowed to sleep/early AM admission Subjective Subjective Patient was seen & assessed and interval progress reviewed with nursing and social work Patient seen in the milieu attending groups met with provider one-on-one feels she is doing much better feels much calmer. Patient had questions about her medication. Patient is future oriented to schedule her appointments to continue with therapy very happy to be going to trauma therapy. Patient also expresses anxiety about going back to prescriber who is a physician assistant football coach. Patient counseled regarding constantly wanting to change medications and advised to try to stick with the medication plan. Patient denies suicidal thoughts or homicidal thoughts patient is future oriented there is no evidence of response to internal stimuli or psychosis. Physical Exam Psychiatric Orientation: alert, oriented x 3, oriented to person, oriented to time and cooperative Apperance: appropriately dressed Eye Contact: good eye contact Motor Behavior: steady gait and station Speech: normal rate/rhythm/volume of speech Affect: euthymic affect and + anxious affect Mood: + anxious mood; no irritable mood Thought Process: goal directed thought process, linear/logical thought process and clear/coherent thought process Thought Content: + preoccupation Suicidal Thoughts: denies suicidal thoughts and denies suicidal plan Homicidal Thoughts: denies homicidal thoughts and denies homicidal plan Hallucinations: no auditory hallucinations and no visual hallucinations Cognition: remote memory grossly intact and attention grossly intact Estimated Intelligence: consistent with education level Insight: good insight; not limited insight Judgement: + fair judgement; not limited judgement Vital Signs (Past 24 Hours) Last Vital Signs Temp 36.7 C 12/03/20 06:50 Pulse 74 12/03/20 07:54 Resp 16 12/03/20 06:50 BP 109/74 12/03/20 07:54 Pulse Ox 97 11/29/20 23:10 The history and physical exam verified by Dr. Darek Haynes, done on 12/01/2020 has been reviewed and for the purposes of this admission will suffice and is seen as correct. Results & Data ([facility]) Current Inpatient Medications Current Inpatient Medications: Current Inpatient Medications Acetaminophen (Acetaminophen 325 Mg Tab) 650 mg PO Q4H PRN PRN Reason: Headache or Minor Fever Stop: 12/30/20 05:35 Al Hydrox/Mg Hydrox/Simethicone (Aluminum/Magnesium Susp 30 Ml Udc) 30 ml PO Q4H PRN PRN Reason: GI Upset Stop: 12/30/20 05:35 Bismuth Subsalicylate (Bismuth Subsalicylate Liqd 236 Ml) 15 ml PO PRN PRN PRN Reason: Loose Stool Stop: 12/30/20 05:35 Gabapentin (Gabapentin 300 Mg Cap) 300 mg PO BID MAXIMILIAN Stop: 01/02/21 20:59 Hydroxyzine HCl (Hydroxyzine Hcl 25 Mg Tab) 50 mg PO HSZ PRN PRN Reason: Insomnia Stop: 12/30/20 05:35 Last Admin: 12/02/20 21:42 Dose: 50 mg Documented by: Hydroxyzine HCl (Hydroxyzine Hcl 25 Mg Tab) 25 mg PO Q4H PRN PRN Reason: Anxiety Stop: 12/30/20 05:35 Lamotrigine (Lamotrigine 100 Mg Tab) 300 mg PO QAM MAXIMILIAN Stop: 12/31/20 08:59 Last Admin: 12/03/20 07:57 Dose: 300 mg Documented by: Magnesium Hydroxide (Magnesium Hydroxide Susp 30 Ml Udc) 30 ml PO DAILY PRN PRN Reason: Constipation Stop: 12/30/20 05:35 Norgestrel/Ethinyl Estradiol - Non- Formulary Patient's Own Med 1 ea PO DAILY MAXIMILIAN Stop: 12/30/20 08:59 Last Admin: 12/03/20 07:58 Dose: 1 ea Documented by: Pantoprazole Sodium (Pantoprazole 40 Mg Tab) 40 mg PO QAM MAXIMILIAN Stop: 12/30/20 08:59 Last Admin: 12/03/20 07:59 Dose: 40 mg Documented by: Propranolol HCl (Propranolol Hcl 10 Mg Tab) 10 mg PO QAM MAXIMILIAN Stop: 01/01/21 08:59 Last Admin: 12/03/20 07:58 Dose: 10 mg Documented by: Propranolol HCl (Propranolol Hcl 10 Mg Tab) 10 mg PO Q6 PRN PRN Reason: Anxiety Stop: 12/31/20 19:09 Sodium Chloride (Sodium Chloride 0.65% Na Soln 45 Ml ([place])) 1 - 2 sprays NA PRN PRN PRN Reason: Nasal Dryness/Congestion Stop: 12/30/20 05:35 Topiramate (Topiramate 50 Mg Tab) 50 mg PO BID MAXIMILIAN Stop: 12/30/20 08:59 Last Admin: 12/03/20 07:59 Dose: 50 mg Documented by: Trazodone HCl (Trazodone Hcl 100 Mg Tab) 100 mg PO HS PRN PRN Reason: Sleep Stop: 12/30/20 06:30 Venlafaxine HCl (Venlafaxine Hcl Xr 37.5 Mg Capxr) 37.5 mg PO DAILY MAXIMILIAN Stop: 12/30/20 08:59 Last Admin: 12/03/20 07:59 Dose: 37.5 mg Documented by: Mental Health & Subst Abuse Tx Psychiatrist Name of Psychiatrist: Lane William Psychiatrist's Date of Appointment with Psychiatrist: 12/14/20 Time of Appointment with Psychiatrist: 9:20a.m Psychiatric Appointment Comment: [address] [facility] [place] [address] Therapist Name of Therapist: Darnell Mariscal Therapist's Date of Therapist Appointment: 12/04/20 Time of Therapist Appointment: 4 p.m. Therapy Appointment Comment: [address] , [place] [address] Academic Affairs Specialist Name of Academic Affairs Specialist: None Post Discharge Appointments Primary Care Physician Name Of Family Doctor: [facility] Date of Appointment with PCP: 12/24/20 Time of Appointment with PCP: 4:20 p.m Provider Appointment Comment: [address] [place] [address] Specialist Name of Specialist: Reggie Sears (trauma therapist) Phone Number for Specialist: Date of Appointment with Specialist: 12/15/20 Time of Appointment with Specialist: 5pm Specialty Appointment Comment: [address] [facility] [address], [place] [address] Contact Information Discharge Discharge [address]: [address] [place] [address] (1) Depression Depression Type: unspecified Qualified Code(s): F32.9 - Major depressive disorder, single episode, unspecified
[2020-12-03] MEDS: GABAPENTIN 300 MG CAP PO SCH (21:02)
[2020-12-03] MEDS: hydrOXYzine HCl 25 MG TAB PO PRN (22:10)
[2020-12-04] MEDS: TOPIRAMATE 50 MG TAB PO SCH (08:40)
[2020-12-04] MEDS: GABAPENTIN 300 MG CAP PO SCH (08:40)
[2020-12-04] MEDS: PROPRANOLOL HCL 10 MG TAB PO SCH (08:40)
[2020-12-04] MEDS: NORGESTREL PO SCH (08:40)
[2020-12-04] MEDS: VENLAFAXINE HCL XR 37.5 MG CAPXR PO SCH (08:40)
[2020-12-04] MEDS: ETHINYL ESTRADIOL PO SCH (08:40)
[2020-12-04] MEDS: lamoTRIgine 100 MG TAB PO SCH (08:40)
[2020-12-04] MEDS: PANTOprazole 40 MG TAB PO SCH (08:40)
--- NOTE | 2020-12-04 11:16 | Discharge Summary ---
Date of Service December 04, 2020 History of Present Illness per admitting psychiatrist: Margareth Conn is a 25-year old single female with a past history of anxiety and depression and previous psychiatric admissions. She presents today with an overdose attempt on Ativan which belonged to a friend in the context of arguments with her boyfriend stressors at work and recently moved in with her boyfriend. Patient reports that she has been dating this particular boyfriend for about a year and they decided to move in a few weeks ago, she reports the move has been very stressful because [place] patient reports she attempted to overdose on Ativan prior to admission around noon yesterday, but her boyfriend stopped her from ingesting the pills. Reports that she has struggled with depression "for a long time." For the last few weeks, she has had increasing depression and some suicidal thoughts. 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 She had an argument with her boyfriend and this pushed her into thinking about suicide. Patient reports that she does not think her medications are working and admits to having a long history of ambivalence with medication and also feeling that her current prescriber which she has had for several months is just" pushing drugs on me" she reports multiple medication trials with minimal effect very significant allergy with Abilify but all the other medications do not really seem to work that much" patient today reports ongoing passive thoughts of suicide denies any active thoughts. Patient today when asked where she got the Ativan reports that it "belonged to my friend who gave them to me and that was my emergency stash" patient reports having worsening anxiety over the years however has not been able to get Ativan prescribed to her, because of past behaviors. On admission patient reports ongoing depression ongoing anxiety feelings of hopelessness. Patient reports ongoing passive thoughts but denies any active thoughts of suicide while on the unit patient not able to fully endorse future orientation however contracts for safety on the unit at this time. Patient denies auditory or visual hallucinations no evidence of response to internal stimuli. Patient also denies current binging behaviors feels that topiramate helps. Patient denies any purging behaviors. Patient admits to ongoing anxiety occasional escalating into a panic attack. Physical Exam Mental Examination See admission H&P and DOD summary. Vital Signs (Past 24 Hours) Last Vital Signs Temp 36.8 C 12/04/20 09:11 Pulse 93 H 12/04/20 09:11 Resp 16 12/04/20 09:11 BP 124/91 12/04/20 09:11 Pulse Ox 97 12/04/20 09:11 Principal Diagnosis bipolar disorder Psychiatric Data See daily stay summary. In short, safety was maintained and the patient was cooperative with care. Medication changes included titration of Lamictal for mood stabilization, addition of propranolol and neurontin by admitting physician for anxiety and they tolerated this well. A family session was held and safety plan was completed prior to discharge. Day of Discharge Assessment Today the patient voices readiness for discharge. They note improvement in mood and deny thoughts to harm self or others. Thoughts remain organized and they are improved from admission. There is no evidence of psychosis. They agree to take mediations as prescribed and keep follow-up appointments. They are stable for discharge to outpatient level of care as planned by Dr. White, additional Effexor XR sent in addition to the scripts already processed by Dr. Day. Reviewed safety profile of medications and potential drug drug interactions at higher doses of Lamictal. She prefers to continue low dose Effexor XR until seen by her outpatient provider. Her thyroid tests were also reviewed and she will follow up with primary care provider for repeat and possible supplementation. Transition of Care Transition Of Care Record: was reviewed with the patient Advance Directives Advance Directives Information Provided: Yes Advance Directives: No Living Will: No Power of Medical Transcription Radiology: No Advance Directives Reason:: Declines as Mental Health Visit. Risk Factors Assessment Male: No : Yes Do You Have Access To A Gun?: No Previous Attempt: Yes Previous Psychiatric Hospitalization: Yes Hopelessness: Yes Protective Factors Assessment Employed: Yes ([employer] [place]) Stable Relationships: No Tobacco Cessation at Discharge Tobacco Cessation Medication Prescribed at Discharge: Not Applicable/Non-Smoker Total Time Total Time Spent: Greater Than 30 Minutes Total Time Includes: Examination of the patient, Discharge Planning and Medication Reconciliation Discharge Data Lab Results 11/29/20 11/29/20 11/29/20 21:52 21:52 21:52 WBC 10.65 RBC 4.82 Hgb 14.5 Hct 41.9 MCV 86.9 MCH 30.1 MCHC 34.6 RDW Std Deviation 41.3 RDW Coeff of Radhika 12.9 Plt Count 318 MPV 11.4 H Immature Gran % (Auto) 0.4 Neut % (Auto) 62.7 Lymph % (Auto) 28.3 Pike % (Auto) 4.7 Eos % (Auto) 3.5 Baso % (Auto) 0.4 Neut # (Auto) 6.69 H Lymph # (Auto) 3.01 Pike # (Auto) 0.50 Eos # (Auto) 0.37 Baso # (Auto) 0.04 Immature Gran # (Auto) 0.04 H Sodium 140 Potassium 3.6 Chloride 111 H Carbon Dioxide 17 L Anion Gap 12.0 H BUN 8 Creatinine 1.06 Est Cr Clr Drug Dosing 81.3 Est GFR ( Amer) 83.3 Est GFR (Non-Af Amer) 71.9 BUN/Creatinine Ratio 7.9 L Glucose 121 H Calcium 9.0 Total Bilirubin 0.2 AST 10 L ALT 32 Alkaline Phosphatase 93 Total Protein 7.5 Albumin 3.9 Globulin 3.6 Albumin/Globulin Ratio 1.1 TSH 5.640 H Free T4 0.78 L HCG, Qual Urine Color Urine Appearance Urine pH Ur Specific [place] Urine Protein Urine Glucose (UA) Urine Ketones Urine Blood Urine Nitrite Urine Bilirubin Urine Urobilinogen Ur Leukocyte Esterase Urine WBC (Auto) Urine RBC (Auto) U Hyaline Cast (Auto) U Epithel Cells (Auto) Urine Bacteria (Auto) Salicylates < 1.7 L Urine Opiates Screen Ur Methadone, Qual Acetaminophen < 2 L Urine Barbiturates Ur Phencyclidine (PCP) U Amphetamin/Meth Scrn MDMA (Ecstasy) Screen U Benzodiazepines Scrn Ur Cocaine Metabolite U Marijuana (THC) Screen U Marijuana THC Carboxy Drug Screen Comment Ethyl Alcohol mg/dL COVID-19 Eval Order SARS-CoV-2, RNA, NAAT 11/29/20 11/29/20 11/29/20 21:52 21:52 22:39 WBC RBC Hgb Hct MCV MCH MCHC RDW Std Deviation RDW Coeff of Radhika Plt Count MPV Immature Gran % (Auto) Neut % (Auto) Lymph % (Auto) Pike % (Auto) Eos % (Auto) Baso % (Auto) Neut # (Auto) Lymph # (Auto) Pike # (Auto) Eos # (Auto) Baso # (Auto) Immature Gran # (Auto) Sodium Potassium Chloride Carbon Dioxide Anion Gap BUN Creatinine Est Cr Clr Drug Dosing Est GFR ( Amer) Est GFR (Non-Af Amer) BUN/Creatinine Ratio Glucose Calcium Total Bilirubin AST ALT Alkaline Phosphatase Total Protein Albumin Globulin Albumin/Globulin Ratio TSH Free T4 HCG, Qual Negative Urine Color Yellow Urine Appearance Clear Urine pH 7.0 Ur Specific [place] 1.011 Urine Protein Negative Urine Glucose (UA) Negative Urine Ketones Negative Urine Blood Negative Urine Nitrite Negative Urine Bilirubin Negative Urine Urobilinogen Negative Ur Leukocyte Esterase Trace H Urine WBC (Auto) 1-5 Urine RBC (Auto) 0-4 U Hyaline Cast (Auto) 1-5 U Epithel Cells (Auto) 20-30 H Urine Bacteria (Auto) Negative Salicylates Urine Opiates Screen Ur Methadone, Qual Acetaminophen Urine Barbiturates Ur Phencyclidine (PCP) U Amphetamin/Meth Scrn MDMA (Ecstasy) Screen U Benzodiazepines Scrn Ur Cocaine Metabolite U Marijuana (THC) Screen U Marijuana THC Carboxy Drug Screen Comment Ethyl Alcohol mg/dL < 3.0 COVID-19 Eval Order SARS-CoV-2, RNA, NAAT 11/29/20 11/29/20 11/30/20 22:39 22:39 03:15 WBC RBC Hgb Hct MCV MCH MCHC RDW Std Deviation RDW Coeff of Radhika Plt Count MPV Immature Gran % (Auto) Neut % (Auto) Lymph % (Auto) Pike % (Auto) Eos % (Auto) Baso % (Auto) Neut # (Auto) Lymph # (Auto) Pike # (Auto) Eos # (Auto) Baso # (Auto) Immature Gran # (Auto) Sodium Potassium Chloride Carbon Dioxide Anion Gap BUN Creatinine Est Cr Clr Drug Dosing Est GFR ( Amer) Est GFR (Non-Af Amer) BUN/Creatinine Ratio Glucose Calcium Total Bilirubin AST ALT Alkaline Phosphatase Total Protein Albumin Globulin Albumin/Globulin Ratio TSH Free T4 HCG, Qual Urine Color Urine Appearance Urine pH Ur Specific [place] Urine Protein Urine Glucose (UA) Urine Ketones Urine Blood Urine Nitrite Urine Bilirubin Urine Urobilinogen Ur Leukocyte Esterase Urine WBC (Auto) Urine RBC (Auto) U Hyaline Cast (Auto) U Epithel Cells (Auto) Urine Bacteria (Auto) Salicylates Urine Opiates Screen Neg Ur Methadone, Qual Neg Acetaminophen Urine Barbiturates Neg Ur Phencyclidine (PCP) Neg U Amphetamin/Meth Scrn Neg MDMA (Ecstasy) Screen Neg U Benzodiazepines Scrn Neg Ur Cocaine Metabolite Neg U Marijuana (THC) Screen Pos H U Marijuana THC Carboxy 451 H Drug Screen Comment SEE NOTE Ethyl Alcohol mg/dL COVID-19 Eval [facility] SARS-CoV-2, RNA, NAAT 11/30/20 03:15 WBC RBC Hgb Hct MCV MCH MCHC RDW Std Deviation RDW Coeff of Radhika Plt Count MPV Immature Gran % (Auto) Neut % (Auto) Lymph % (Auto) Pike % (Auto) Eos % (Auto) Baso % (Auto) Neut # (Auto) Lymph # (Auto) Pike # (Auto) Eos # (Auto) Baso # (Auto) Immature Gran # (Auto) Sodium Potassium Chloride Carbon Dioxide Anion Gap BUN Creatinine Est Cr Clr Drug Dosing Est GFR ( Amer) Est GFR (Non-Af Amer) BUN/Creatinine Ratio Glucose Calcium Total Bilirubin AST ALT Alkaline Phosphatase Total Protein Albumin Globulin Albumin/Globulin Ratio TSH Free T4 HCG, Qual Urine Color Urine Appearance Urine pH Ur Specific [place] Urine Protein Urine Glucose (UA) Urine Ketones Urine Blood Urine Nitrite Urine Bilirubin Urine Urobilinogen Ur Leukocyte Esterase Urine WBC (Auto) Urine RBC (Auto) U Hyaline Cast (Auto) U Epithel Cells (Auto) Urine Bacteria (Auto) Salicylates Urine Opiates Screen Ur Methadone, Qual Acetaminophen Urine Barbiturates Ur Phencyclidine (PCP) U Amphetamin/Meth Scrn MDMA (Ecstasy) Screen U Benzodiazepines Scrn Ur Cocaine Metabolite U Marijuana (THC) Screen U Marijuana THC Carboxy Drug Screen Comment Ethyl Alcohol mg/dL COVID-19 Eval Order SARS-CoV-2, RNA, NAAT NEGATIVE Hospital Course (1) Suicidal ideation: 12/01/20- ongoing passive thoughts but denying active suicidal thoughts Contract for safety on the unit passive suicidal thoughts remain no active suicidal thoughts we will continue to monitor and continue current medication. Not open to lithium because of the weight gain (2) Depression: 12/03/20- patient reports past history of having problems with Latuda. Reports her main problem is anxiety she feels her mood has improved significantly. Denies suicidal thoughts. Continue Lamictal plan to consider increasing Lamictal in the community to 350 mg. Continue propanolol she finds this helpful for anxiety. We will add gabapentin 300 mg twice daily for anxiety may provide mild mood stability. Patient can continue this on an outpatient with the plans increase. 12/02/20 -Consider low-dose Latuda. 12/01/20- tolerating increase lamictal - will discontinue cymbalta as this may have been activating her 11/30/20- Patient reports irritability has has significant symptom for the depression help there is reactivity in her mood and a lot of her mood symptoms tend to be associated with psychosocial stressors at work of relationships of housing patient reports a history of trauma which she is guarded about would continue her mood stabilizers she is on 100 mg of topiramate would increase Lamictal to 300 with a plan of increasing to 350 since the patient seems to think it works very well and is open to taking it would eventually plan to discontinue Cymbalta as patient does admit to more mood fluctuations since it started and unclear if it is helpful. (3) Anxiety: 12/03/20- patient reports past history of having problems with Latuda. Reports her main problem is anxiety she feels her mood has improved significantly. Denies suicidal thoughts. Continue Lamictal plan to consider increasing Lamictal in the community to 350 mg. Continue propanolol she finds this helpful for anxiety. We will add gabapentin 300 mg twice daily for anxiety may provide mild mood stability. Patient can continue this on an outpatient with the plans increase. - will add low dose propranolol for agitation 11/30/20Long-term anxiety persistent we will add gabapentin seen 300 mg twice daily increase to 600 twice daily over the next few days. Plan to use beta- elmira patient has used before to help with anxiety and reports it being effective. (4) Hypothyroid: Medical team consult for recommendations. 12/03/2020 patient will follow-up with her primary care as an outpatient. Mental Health & Subst Abuse Tx Psychiatrist Name of Psychiatrist: Lane Calvo Psychiatrist's Date of Appointment with Psychiatrist: 12/14/20 Time of Appointment with Psychiatrist: 9:20a.m Psychiatric Appointment Comment: [address] [place] [address] Psychiatrist Release of Information: Obtained, Reviewed and Signed Therapist Name of Therapist: Darnell Davey Therapist's Date of Therapist Appointment: 12/07/20 Time of Therapist Appointment: 2 p.m. Therapy Appointment Comment: [address] [place] [address] Therapist Release of Information: Obtained, Reviewed and Signed Commercial Analyst Name of Commercial Analyst: None Post Discharge Appointments Primary Care Physician Name Of Family Doctor: WENDY Larsen [facility] Date of Appointment with PCP: 12/24/20 Time of Appointment with PCP: 4:20 p.m Provider Appointment Comment: [address] [place] [address] Primary Care Release of Information: Obtained, Reviewed and Signed Specialist Name of Specialist: Reggie Sears (trauma therapist) Phone Number for Specialist: Date of Appointment with Specialist: 12/15/20 Time of Appointment with Specialist: 5pm Specialty Appointment Comment: [address] [facility] [address], [place] [address] Specialist Release of Information: Obtained, Reviewed and Signed Smoking Cessation Counseling Tobacco Cessation Medication Prescribed at Discharge: Not Applicable/Non-Smoker Contact Information Discharge Discharge Address: [address] [place] [address] Discharge Plan Discharge Items Patient Disposition: Home - Self-Care Reason For Visit: MDD Discharge Diagnosis: Bipolar disorder unspecified Condition on Discharge: Good Activity: Resume your previous activity Non-emergency contact: Primary Care Provider, Psychiatrist and Therapist Call non-emergency contact if: you have any medication questions and your symptoms worsen Follow-up/Referrals: PCP,NO [Primary Care Provider] - Diet: Regular Addtl Attending Provider Instructions: SPECIAL CARE INSTRUCTIONS: 1. Follow through with your scheduled aftercare appointments. If unable to keep an appointment, please call to reschedule. 2. Take your medication only as prescribed. Medication should not be changed or stopped without the approval of your doctor. In the event of worsening symptoms or concerns about side effects, contact your doctor immediately. 3. Utilize new healthy coping skills, anger management skills, and stress management skills learned during your hospitalization. Journal feelings and process them with a support person. Identify stressors or situations that may result in relapse, deterioration or inappropriate behaviors and develop a plan to deal with those issues. 4. If your coping skills are ineffective and you are in crisis, contact your outpatient providers for direction. If unable to reach your providers, please call the [facility] CRISIS LINE AT , go to the [facility] walk-in center at [address], [address], [place], or go to the closest Emergency Room. 5. Avoid alcohol and un-prescribed drugs. 6. You have been provided with the Mental Health Advance Directives Pamphlet for your review. AFTERCARE APPOINTMENTS: * Please call your insurance company prior to your scheduled appointment to confirm your aftercare providers are covered. Take your insurance information to your appointments. WHO TO CALL AND WHEN: Medical Emergencies: For questions or emergencies related to your hospital stay, please contact the Inpatient Behavioral Health Unit at [phone]. A certified ophthalmic medical technician is on-call 16/01 for the Behavioral Health Unit for emergencies At any time you feel your situation is an emergency, you may also call 911 immediately. Pending Studies at Discharge: No Stand-Alone Forms: My [facility], Smoking Cessation Medications and DC Order Prescriptions: New propranolol 10 mg Tablet 10 mg PO QAM Qty: 30 RF: 0 gabapentin 300 mg Capsule 300 mg PO BID Qty: 60 RF: 0 lamotrigine 100 mg Tablet 300 mg PO QAM Qty: 90 RF: 0 Continued trazodone 100 mg tablet 100 mg PO DAILY PRN (Reason: Anxiety) RF: 0 Cryselle (28) 0.3-30 mg-mcg tablet 1 tab PO DAILY Qty: 28 RF: 12 topiramate 50 mg tablet 50 mg PO BID RF: 0 Flintstones Complete See Rx Instructions .ROUTE .COMPLEX RF: 0 Probiotic See Rx Instructions .ROUTE .COMPLEX RF: 0 pantoprazole 40 mg tablet,delayed release (DR/EC) 40 mg PO DAILY RF: 0 naproxen 250 mg tablet 125 mg PO Q12H PRN (Reason: Pain, Mild) Qty: 30 RF: 0 venlafaxine 37.5 mg capsule,extended release 24hr 37.5 mg PO DAILY 21 Days Qty: 21 RF: 0 Discontinued lamotrigine 200 mg tablet 200 mg PO DAILY RF: 0 hydroxyzine pamoate [Vistaril] 50 mg capsule 50 mg PO TID PRN (Reason: Anxiety) RF: 0 lamotrigine 25 mg tablet 50 mg PO DAILY RF: 0 duloxetine 20 mg capsule,delayed release(DR/EC) 20 mg PO DAILY RF: 0 Discharge Orders: Discharge Order (Routine); Ordered 12/04/20 Ordered By: Daphne Kennedy Admission Data Admit Date/Time: 11/30/20 05:36 Attending Provider: Daphne Kennedy Admit Provider: Brinda Day Primary Care Provider: PCP,NO Other Interventions: Discharge Summary Assessment (RN) Last Done: 12/04/20 09:11 PSY Interdisciplinary Discharge Planning Last Done: 12/04/20 09:12 Coding Level of Care Code 44683 D/C day mgmt > 30 min Diagnoses Suicidal ideation R45.851 Depression F32.9 Depression Type: unspecified Anxiety F41.9 Hypothyroid E03.9
== END 2020-12-04 12:03 | disposition home or self-care (01) | DRG 885 ==
LOC: ED 21:09 → SUATTDRO 11-30 05:36 → 3S 11-30 05:36

== ENCOUNTER 2021-06-13 10:47 | Inpatient (IN) ==
[2021-06-13 11:49] LABS: Appearance Urine Cloudy (Clear); Bacteria Urine Automated Negative (Negative); Bilirubin Urine Negative (Negative); Blood Urine Negative (Negative); Cast Urine Automated 0 /lpf (0-5); Color Urine Yellow; Epithelial Cell Urine Auto >30 /lpf (0-5); Glucose Urine UA Negative (Negative); Ketones Urine Negative (Negative); Leukocyte Esterase Urine Negative (Negative); Nitrite Urine Negative (Negative); Protein Urine Negative (Negative); RBC Urine Automated 0-4 /hpf (0-4); Specific Gravity Urine 1.022 (1.000-1.030); Urobilinogen Urine Negative (Negative); pH Urine 7.5 (4.5-7.5)
[2021-06-13 11:58] LABS: Basophils # (auto) 0.03 K/uL (0-0.2); Basophils % (auto) 0.3 %; Eosinophils # (auto) 0.48 K/uL (0-0.5); Eosinophils % (auto) 5.4 %; Hematocrit (blood only) 40.3 % (37-47); Hemoglobin 13.6 g/dL (12.0-16.0); Immature Granulocytes # (auto) 0.05 K/uL (0.00-0.02); Immature Granulocytes % (auto) 0.6 %; Lymphocytes % (auto) 29.2 %; Mean Corpuscular Hgb Conc 33.7 g/dL (32-36); Mean Corpuscular Volume 85.9 fL (80-100); Mean Platelet Volume 10.6 fL (7.4-10.4); Monocytes # (auto) 0.49 K/uL (0.11-0.59); Monocytes % (auto) 5.5 %; Neutrophils # (auto) 5.26 K/uL (1.4-6.5); Platelet Count 289 K/uL (130-400); RDW Coefficient of Variation 12.6 % (11.5-14.5); Red Blood Count 4.69 M/uL (4.2-5.4); White Blood Count 8.91 K/uL (4.8-10.8)
--- NOTE | 2021-06-13 12:07 | Emergency Department Note ---
Impression & Plan Depression with suicidal ideation ED Provider Note NAME: SAURABH JUDGE AGE: 26 SEX: F : 1995 ARRIVES VIA: Walk-In INFORMANT: Patient, ED PROVIDER(S): Everette Celeste DO CHIEF COMPLAINT: Suicidal ideation HPI: The patient is a 26-year-old female who presented to the emergency department for an evaluation of suicidal ideation. The patient has a history of depression as well as suicidal gesture in the past. She was admitted to mental health in March for similar episode. She did not have a specific gesture at that time. She states she has been very consumed suicidal thoughts recently. She is been caring around pills to try to overdose with but she is not taking any pills or done anything to hurt her self recently. She has not been going to work recently. She is very depressed over significant stressors in her life at this time. She denies having any chest pain or nausea or vomiting. She has had no COVID-19 exposures. She denies having any fevers. She is not seen her therapist recently for the symptoms but does have a local therapist and does take medications for mental health issues. ROS: See above HPI for pertinent positives & negatives. A total of 10 systems reviewed and were otherwise negative. PAST MEDICAL HISTORY: See Below PAST SURGICAL HISTORY: See Below FAMILY HISTORY: See Below SOCIAL HISTORY: See Below HOME MEDICATIONS: See Below ALLERGIES: See Below VITALS: See Below PHYSICAL EXAMINATION: GENERAL: The patient is awake and alert. She is resting comfortably. EYES: The conjunctivae are clear. The pupils are round and reactive. EARS, NOSE, MOUTH AND THROAT: The nose is without any evidence of any deformity. NECK: The neck is nontender and supple. RESPIRATORY: Normal respiratory effort is noted there is no evidence of wheezing rhonchi or rales CARDIOVASCULAR: Regular rate and rhythm noted there no murmurs rubs or gallops normal S1 normal S2. GASTROINTESTINAL: The abdomen is soft. Abdomen is nontender. MUSCULOSKELETAL/EXTREMITIES: There is no evidence of gross deformity full range of motion is noted in the hips and shoulders. SKIN: There is no obvious evidence of any rash. There are no petechiae, pallor or cyanosis noted. NEUROLOGIC: Patient is awake alert and oriented x3. Gait was steady PSYCH: The patient makes good eye contact for most of the evaluation. She does admit to having suicidal ideation with a plan to overdose on pills. MEDICAL DECISION MAKING: The patient is a 26-year-old female who presented to emergency department for an evaluation of depression with suicidal ideation. The patient has had similar episodes in the past. The patient was medically cleared in the emergency department. She was felt to be a good candidate for inpatient management. The patient was evaluated by the mental health hospice case manager. She was agreeable for inpatient treatment. She was evaluated by the delegate from [facility]. I did sign the patient's 201. Triage Nursing notes reviewed. Prior medical records reviewed Vital Signs: reviewed and remarkable for no significant abnormalities Differential diagnosis: Mood disorder, infection, hypoglycemia, electrolyte abnormalities, cardiac sources, intracerebral event, toxicologic, trauma, neurologic, as well as other pathologies. ER treatment provided: See below Diagnostics interpreted by me: ECG: none Laboratory studies: As stated above and show below. Imaging studies: See below Consultation(s): none Past Med/Surg History Medical History (Updated 06/13/21 @ 19:41 by Everette Celeste DO) Abnormal uterine bleeding Acid reflux Asthma Eating disorder Encounter for gynecological examination without abnormal finding Irregular menses Lymphadenopathy OCD (obsessive compulsive disorder) Oral contraceptive pill surveillance Pelvic cramping Sinus tachycardia Stress incontinence Surgical History H/O oral surgery Family History Grandmother (Maternal) Hypertension Lung cancer Grandmother (Paternal) No problems noted. 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 Feels Safe at Home: Yes Childhood Exposure to Second-Hand Smoke: Yes caffeine: Yes during the past year weight has: increased > 10 lbs Dental Care, Regularly: Yes Physical Activity Frequency: Daily Seatbelt Use: always Sunscreen Use: Yes Assistive Devices: Contacts and Glasses Allergies Allergies Allergy/AdvReac Type Severity Reaction Status Date / Time adhesive AdvReac Intermediate RASH Verified 06/13/21 11:50 nickel AdvReac Intermediate RASH Verified 06/13/21 11:50 aripiprazole AdvReac Mild NAUSEA/VOMI Verified 06/13/21 11:50 TING Home Meds Home Medications Medication Instructions Recorded Confirmed trazodone 100 mg tablet 100 mg PO DAILY PRN 03/03/20 06/13/21 Flintstones Complete See Rx Instructions .ROUTE .COMPLEX 11/30/20 06/13/21 Probiotic See Rx Instructions .ROUTE .COMPLEX 11/30/20 06/13/21 topiramate 50 mg tablet 50 mg PO BID 11/30/20 06/13/21 gabapentin 300 mg capsule 300 mg PO BID 03/25/21 06/13/21 albuterol sulfate 90 mcg/actuation 1 puff INHALATION QID PRN 06/13/21 06/13/21 aerosol inhaler desvenlafaxine succinate 25 mg 50 mg PO DAILY 06/13/21 06/13/21 tablet,extended release 24 hr (Pristiq) lamotrigine 100 mg tablet 200 mg PO QAM MDD 2 in am and 1 06/13/21 06/13/21 1/2 in the pm risperidone 1 mg tablet 1 mg PO HS 06/13/21 06/13/21 Previous Rx's Medication Instructions Recorded naproxen 250 mg tablet 125 mg PO Q12H PRN #30 tab 12/03/20 propranolol 10 mg tablet 10 mg PO QAM #30 tab 12/03/20 cyanocobalamin (vitamin B-12) 3,000 mcg PO DAILY #30 tab 02/25/21 1,000 mcg tablet ergocalciferol (vitamin D2) 1,250 1,250 mcg PO .weekly #30 cap 02/25/21 mcg (50,000 unit) capsule hydroxyzine HCl 50 mg tablet 50 mg PO HS PRN #60 tab 02/25/21 levothyroxine 50 mcg tablet 50 mcg PO DAILY #90 tab 02/25/21 (Synthroid) norgestrel 0.3 mg-ethinyl 1 tab PO DAILY #28 tab 03/25/21 estradiol 30 mcg tablet (Cryselle (28)) pantoprazole 40 mg tablet,delayed 40 mg PO DAILY #90 tab 04/07/21 release Results & Data (ED) Vital Signs Vital Signs - 24 hr 06/13/21 10:50 06/13/21 11:33 06/13/21 13:00 Temperature 36.7 C Temperature Source Temporal Artery Scan Pulse Rate 83 Pulse Rate [Apical] 70 71 Respiratory Rate 20 20 20 Respiratory Effort / Characteristics Non-Labored Spontaneous Non-Labored Spontaneous Respiratory Depth Normal Normal Respiratory Pattern Regular Blood Pressure 149/93 H Blood Pressure [Left Arm] 116/74 116/74 Blood Pressure Mean 111 Blood Pressure Mean [Left Arm] 88 88 Pulse Oximetry 98 97 96 Oxygen Delivery Method Room Air Room Air Room Air Sepsis Recent Fever Within 48 Hours No Sepsis New/Unexplained Change in Mental Status No Sepsis Action Taken by Nursing No Action Required Home Medications Current Medication List: was personally reviewed by me Laboratory Data Attestation: I reviewed the patient's lab results. Result diagrams: 06/13/21 11:37 06/13/21 11:37 Lab Results 06/13/21 06/13/21 06/13/21 Range/Units 11:08 11:08 11:31 WBC (4.8-10.8) K/uL RBC (4.2-5.4) M/uL Hgb (12.0-16.0) g/dL Hct (37-47) % MCV (80-100) fL MCH (25-34) pg MCHC (32-36) g/dL RDW Std Deviation (36.4-46.3) fL RDW Coeff of Radhika (11.5-14.5) % Plt Count (130-400) K/uL MPV (7.4-10.4) fL Immature Gran % (Auto) % Neut % (Auto) % Lymph % (Auto) % Mills % (Auto) % Eos % (Auto) % Baso % (Auto) % Neut # (Auto) (1.4-6.5) K/uL Lymph # (Auto) (1.2-3.4) K/uL Mills # (Auto) (0.11-0.59) K/uL Eos # (Auto) (0-0.5) K/uL Baso # (Auto) (0-0.2) K/uL Immature Gran # (Auto) (0.00-0.02) K/uL Sodium (136-145) mmol/L Potassium (3.5-5.1) mmol/L Chloride (98-107) mmol/L Carbon Dioxide (21-32) mmol/L Anion Gap (3-11) BUN (7-18) mg/dl Creatinine (0.6-1.2) mg/dl Est Cr Clr Drug Dosing ml/min Est GFR ( Amer) ml/min Est GFR (Non-Af Amer) ml/min BUN/Creatinine Ratio (10-20) Glucose (70-99) mg/dl Calcium (8.5-10.1) mg/dl Total Bilirubin (0.2-1) mg/dl AST (15-37) U/L ALT (12-78) Alkaline Phosphatase (45-117) U/L Total Protein (6.4-8.2) gm/dl Albumin (3.4-5.0) gm/dl Globulin (2.5-4.0) gm/dl Albumin/Globulin Ratio (0.9-2) TSH (0.300-4.500) uIu/ml HCG, Qual (Negative) Urine Color Yellow Urine Appearance Cloudy A (Clear) Urine pH 7.5 (4.5-7.5) Ur Specific [place] 1.022 (1.000-1.030) Urine Protein Negative (Negative) Urine Glucose (UA) Negative (Negative) Urine Ketones Negative (Negative) Urine Blood Negative (Negative) Urine Nitrite Negative (Negative) Urine Bilirubin Negative (Negative) Urine Urobilinogen Negative (Negative) Ur Leukocyte Esterase Negative (Negative) Urine WBC (Auto) 1-5 (0-5) /hpf Urine RBC (Auto) 0-4 (0-4) /hpf U Hyaline Cast (Auto) 0 (0-5) /lpf U Epithel Cells (Auto) >30 H (0-5) /lpf Urine Bacteria (Auto) Negative (Negative) Salicylates (2.8-20) mg/dl Urine Opiates Screen Neg (Neg) Ur Methadone, Qual Neg (Neg) Acetaminophen (10-30) ug/ml Urine Barbiturates Neg (Neg) Ur Phencyclidine (PCP) Neg (Neg) U Amphetamin/Meth Scrn Neg (Neg) MDMA (Ecstasy) Screen Neg (Neg) U Benzodiazepines Scrn Neg (Neg) Ur Cocaine Metabolite Neg (Neg) U Marijuana (THC) Screen Pos H (Neg) Ethyl Alcohol mg/dL (0-3) mg/dl SARS-CoV-2, RNA, NAAT NEGATIVE (NEGATIVE) 06/13/21 06/13/21 06/13/21 Range/Units 11:37 11:37 11:37 WBC 8.91 (4.8-10.8) K/uL RBC 4.69 (4.2-5.4) M/uL Hgb 13.6 (12.0-16.0) g/dL Hct 40.3 (37-47) % MCV 85.9 (80-100) fL MCH 29.0 (25-34) pg MCHC 33.7 (32-36) g/dL RDW Std Deviation 39.0 (36.4-46.3) fL RDW Coeff of Radhika 12.6 (11.5-14.5) % Plt Count 289 (130-400) K/uL MPV 10.6 H (7.4-10.4) fL Immature Gran % (Auto) 0.6 % Neut % (Auto) 59.0 % Lymph % (Auto) 29.2 % Mills % (Auto) 5.5 % Eos % (Auto) 5.4 % Baso % (Auto) 0.3 % Neut # (Auto) 5.26 (1.4-6.5) K/uL Lymph # (Auto) 2.60 (1.2-3.4) K/uL Mills # (Auto) 0.49 (0.11-0.59) K/uL Eos # (Auto) 0.48 (0-0.5) K/uL Baso # (Auto) 0.03 (0-0.2) K/uL Immature Gran # (Auto) 0.05 H (0.00-0.02) K/uL Sodium 141 (136-145) mmol/L Potassium 3.8 (3.5-5.1) mmol/L Chloride 111 H (98-107) mmol/L Carbon Dioxide 20 L (21-32) mmol/L Anion Gap 10.0 (3-11) BUN 12 (7-18) mg/dl Creatinine 0.98 (0.6-1.2) mg/dl Est Cr Clr Drug Dosing 93.7 ml/min Est GFR ( Amer) 91.0 ml/min Est GFR (Non-Af Amer) 78.5 ml/min BUN/Creatinine Ratio 12.0 (10-20) Glucose 100 H (70-99) mg/dl Calcium 8.6 (8.5-10.1) mg/dl Total Bilirubin 0.2 (0.2-1) mg/dl AST 9 L (15-37) U/L ALT 21 (12-78) Alkaline Phosphatase 87 (45-117) U/L Total Protein 7.3 (6.4-8.2) gm/dl Albumin 3.8 (3.4-5.0) gm/dl Globulin 3.5 (2.5-4.0) gm/dl Albumin/Globulin Ratio 1.1 (0.9-2) TSH 1.940 (0.300-4.500) uIu/ml HCG, Qual (Negative) Urine Color Urine Appearance (Clear) Urine pH (4.5-7.5) Ur Specific [place] (1.000-1.030) Urine Protein (Negative) Urine Glucose (UA) (Negative) Urine Ketones (Negative) Urine Blood (Negative) Urine Nitrite (Negative) Urine Bilirubin (Negative) Urine Urobilinogen (Negative) Ur Leukocyte Esterase (Negative) Urine WBC (Auto) (0-5) /hpf Urine RBC (Auto) (0-4) /hpf U Hyaline Cast (Auto) (0-5) /lpf U Epithel Cells (Auto) (0-5) /lpf Urine Bacteria (Auto) (Negative) Salicylates < 1.7 L (2.8-20) mg/dl Urine Opiates Screen (Neg) Ur Methadone, Qual (Neg) Acetaminophen < 2 L (10-30) ug/ml Urine Barbiturates (Neg) Ur Phencyclidine (PCP) (Neg) U Amphetamin/Meth Scrn (Neg) MDMA (Ecstasy) Screen (Neg) U Benzodiazepines Scrn (Neg) Ur Cocaine Metabolite (Neg) U Marijuana (THC) Screen (Neg) Ethyl Alcohol mg/dL (0-3) mg/dl SARS-CoV-2, RNA, NAAT (NEGATIVE) 06/13/21 06/13/21 Range/Units 11:37 11:37 WBC (4.8-10.8) K/uL RBC (4.2-5.4) M/uL Hgb (12.0-16.0) g/dL Hct (37-47) % MCV (80-100) fL MCH (25-34) pg MCHC (32-36) g/dL RDW Std Deviation (36.4-46.3) fL RDW Coeff of Radhika (11.5-14.5) % Plt Count (130-400) K/uL MPV (7.4-10.4) fL Immature Gran % (Auto) % Neut % (Auto) % Lymph % (Auto) % Mills % (Auto) % Eos % (Auto) % Baso % (Auto) % Neut # (Auto) (1.4-6.5) K/uL Lymph # (Auto) (1.2-3.4) K/uL [place] # (Auto) (0.11-0.59) K/uL Eos # (Auto) (0-0.5) K/uL Baso # (Auto) (0-0.2) K/uL Immature Gran # (Auto) (0.00-0.02) K/uL Sodium (136-145) mmol/L Potassium (3.5-5.1) mmol/L Chloride (98-107) mmol/L Carbon Dioxide (21-32) mmol/L Anion Gap (3-11) BUN (7-18) mg/dl Creatinine (0.6-1.2) mg/dl Est Cr Clr Drug Dosing ml/min Est GFR ( Amer) ml/min Est GFR (Non-Af Amer) ml/min BUN/Creatinine Ratio (10-20) Glucose (70-99) mg/dl Calcium (8.5-10.1) mg/dl Total Bilirubin (0.2-1) mg/dl AST (15-37) U/L ALT (12-78) Alkaline Phosphatase (45-117) U/L Total Protein (6.4-8.2) gm/dl Albumin (3.4-5.0) gm/dl Globulin (2.5-4.0) gm/dl Albumin/Globulin Ratio (0.9-2) TSH (0.300-4.500) uIu/ml HCG, Qual Negative (Negative) Urine Color Urine Appearance (Clear) Urine pH (4.5-7.5) Ur Specific [place] (1.000-1.030) Urine Protein (Negative) Urine Glucose (UA) (Negative) Urine Ketones (Negative) Urine Blood (Negative) Urine Nitrite (Negative) Urine Bilirubin (Negative) Urine Urobilinogen (Negative) Ur Leukocyte Esterase (Negative) Urine WBC (Auto) (0-5) /hpf Urine RBC (Auto) (0-4) /hpf U Hyaline Cast (Auto) (0-5) /lpf U Epithel Cells (Auto) (0-5) /lpf Urine Bacteria (Auto) (Negative) Salicylates (2.8-20) mg/dl Urine Opiates Screen (Neg) Ur Methadone, Qual (Neg) Acetaminophen (10-30) ug/ml Urine Barbiturates (Neg) Ur Phencyclidine (PCP) (Neg) U Amphetamin/Meth Scrn (Neg) MDMA (Ecstasy) Screen (Neg) U Benzodiazepines Scrn (Neg) Ur Cocaine Metabolite (Neg) U Marijuana (THC) Screen (Neg) Ethyl Alcohol mg/dL < 3.0 (0-3) mg/dl SARS-CoV-2, RNA, NAAT (NEGATIVE) Administered Medications Lamotrigine (Lamotrigine 100 Mg Tab) 200 mg PO [facility] Stop: 07/13/21 13:59 Last Admin: 06/13/21 14:25 Dose: 200 mg Documented by: [id number] Miscellaneous (Flintstones Complete ~ Order Awaiting Action) 1 ea N/A [facility] Stop: 07/13/21 15:59 Last Admin: 06/13/21 17:54 Dose: Not Given Documented by: [id number] Miscellaneous (Probiotic ~ Order Awaiting Action) 1 ea N/A [facility] Stop: 07/13/21 15:59 Last Admin: 06/13/21 17:54 Dose: Not Given Documented by: [id number] Discontinued Medications Miscellaneous (Desvenlafaxine Succinate [Pristiq] 25 Mg Tablet ~ Order Awaiting Action) 1 ea N/A [facility] Stop: 07/13/21 15:59 Last Admin: 06/13/21 17:57 Dose: Not Given Documented by: [id number] Miscellaneous (Cryselle (28)] 0.3-30 Mg-Mcg Tablet ~ Order Awaiting Action) 1 ea N/A [facility] Stop: 07/13/21 15:59 Last Admin: 06/13/21 17:56 Dose: Not Given Documented by: [id number] Discharge Plan Visit Data Chief Complaint: Mental Health Evaluation Stated Complaint: MENTAL HEALTH EVALUATION ED Provider: Everette Celeste Discharge Problem: Depression with suicidal ideation Patient Disposition: Transfer Behavioral Health Fac Discharge Instructions Interventions: ED Discharge Assessment Last Done: 06/13/21 15:03
[2021-06-13 12:14] LABS: Amphetamines+Metham, Urine Neg (Neg); Barbiturates, Urine Neg (Neg); Benzodiazepine, Urine Neg (Neg); Cocaine, Urine Neg (Neg); MDMA (Ecstacy), Urine Neg (Neg); Methadone, Urine Neg (Neg); Opiate, Urine Neg (Neg); Phencyclidine, Urine Neg (Neg)
[2021-06-13 12:21] LABS: Acetaminophen < 2 ug/ml (10-30); Salicylate < 1.7 mg/dl (2.8-20)
[2021-06-13 12:22] LABS: Albumin Level 3.8 gm/dl (3.4-5.0); Calcium 8.6 mg/dl (8.5-10.1); Creatinine Clr Calc Pharmacy 93.7 ml/min; Est GFR (Non-African American) 78.5 ml/min; Potassium 3.8 mmol/L (3.5-5.1)
[2021-06-13 12:31] LABS: Pregnancy Test, Serum Negative (Negative)
[2021-06-13 12:32] LABS: Albumin Globulin Ratio 1.1 (0.9-2); Bilirubin,Total 0.2 mg/dl (0.2-1); Globulin 3.5 gm/dl (2.5-4.0); Thyroid Stimulating Hormone 1.94 uIu/ml (0.300-4.500); Total Protein 7.3 gm/dl (6.4-8.2)
[2021-06-13] MEDS ORDERED: traZODone HCL 100 MG TAB PO PRN (13:54)
[2021-06-13] MEDS ORDERED: ALBUTEROL HFA 8 GM INHALER INH PRN (13:54)
[2021-06-13] MEDS ORDERED: NAPROXEN 250 MG TAB PO PRN (13:54)
[2021-06-13] MEDS ORDERED: MAGNESIUM HYDROXIDE SUSP 30 ML UDC PO PRN (14:00)
[2021-06-13] MEDS ORDERED: SODIUM CHLORIDE 0.65% NA SOLN 45 ML (OCEAN) PRN (14:00)
[2021-06-13] MEDS ORDERED: hydrOXYzine HCl 25 MG TAB PO PRN (14:00)
[2021-06-13] MEDS ORDERED: BISMUTH SUBSALICYLATE LIQD 236 ML PO PRN (14:00)
[2021-06-13] MEDS ORDERED: ACETAMINOPHEN 325 MG TAB PO PRN (14:00)
[2021-06-13] MEDS ORDERED: ALUMINUM/MAGNESIUM SUSP 30 ML UDC PO PRN (14:00)
[2021-06-13] MEDS: lamoTRIgine 100 MG TAB PO SCH ×2 (14:25→20:25)
[2021-06-13] MEDS: TOPIRAMATE 50 MG TAB PO SCH (20:26)
[2021-06-13] MEDS: GABAPENTIN 300 MG CAP PO SCH (20:26)
[2021-06-13] MEDS: risperiDONE 1 MG TABLET PO SCH (21:11)
[2021-06-13] MEDS ORDERED: ELINEST PO SCH (22:00)
[2021-06-14 09:03] LABS: Glucose Fasting 88 mg/dl (70-99)
[2021-06-14] MEDS: DESVENLAFAXINE SUCCINATE ER TABLET 50MG PO SCH (09:03)
[2021-06-14] MEDS: LEVOTHYROXINE SODIUM 50 MCG TABLET PO SCH (09:03)
[2021-06-14] MEDS: CYANOCOBALAMIN (VITAMIN B-12) 2,500 MCG TAB.SUBL SL SCH (09:03)
[2021-06-14] MEDS: TOPIRAMATE 50 MG TAB PO SCH ×2 (09:04→20:51)
[2021-06-14] MEDS: GABAPENTIN 300 MG CAP PO SCH ×2 (09:04→20:51)
[2021-06-14] MEDS: lamoTRIgine 100 MG TAB PO SCH ×2 (09:04→20:51)
[2021-06-14] MEDS: PROPRANOLOL HCL 10 MG TAB PO SCH (09:06)
[2021-06-14] MEDS: PANTOprazole 40 MG TAB PO SCH (09:06)
[2021-06-14] MEDS: ELINEST PO SCH (09:06)
[2021-06-14 09:10] LABS: Chol HDL Ratio 3; Cholesterol 155 mg/dl (0-200); HDL Cholesterol 46 mg/dl; LDL Cholesterol Calculated 82 mg/dl; Triglycerides 135 mg/dl (0-150); VLDL Cholesterol 27 mg/dl
--- NOTE | 2021-06-14 12:47 | History & Physical ---
Date of Service June 14, 2021 Impression / Recommendations Impression Margareth is a 26-year-old female with a history of recurrent depression, brief hypomania with increase in impulsivity/reactivity/substance use, who presents with ongoing SI with plan to OD on her sleeping pills (hydroxyzine and trazodone). She has a history of overdose and has failed multiple medication trials. She is overwhelmed by work and keeping her symptoms relatively secret from her coworkers and partner which adds to her risk. (1) Bipolar II disorder with or without full interepisode recovery: (2) Vitamin D deficiency: The patient was [facility] on q15 min checks (behavioral with suicide precautions) for safety. The patient will participate in group, recreational, and milieu therapies and will be offered additional individual and family sessions as clinically appropriate. Risks/benefits/alternatives reviewed re: her current medications. Discussion included but was not limited to need for monitoring for metabolic/TD, and risks in OD. Will coordinate care with outpatient psychiatrist before initiating additional medication changes. Pristiq is non-formulary and once dose is decided she will need rx soon. Labs reviewed as thyroid seems appropriately corrected. She is due to Vitamin D level soon so will draw here. Inventory Assets Strengths: intelligent, has consistently participated in outpatient treatment Needs: safety plan around medications, meeting with boyfriend. Risk Factors Assessment : Yes Do You Have Access To A Gun?: No Mental Health Diagnoses: Yes Previous Attempt: Yes Previous Psychiatric Hospitalization: Yes Protective Factors Assessment Employed: Yes Stable Relationships: Yes Psychiatric History Identifying Data MARGARETH JUDGE is a 26-year-old F who currently lives in [place] with her boyfriend, has a history of suicidal ideation, and was admitted on 06/13/21 14:00 on a 201 voluntary commitment for same. Chief Complaint "I just wanted to disappear and instead of going to work I drove an hour and half away with my sleeping pills". History of Present Illness Margareth was last hospitalized on in November 2020, she reports that her mood has been chronically dysthymic, "I don't know who I am or what I want, I put on a face." Since that time she has moved in with her boyfriend. It was meant to be temporary between leases but stayed and feels that she is a burden there some how. She hasn't unpacked, "like he doesn't have room for me". She reports stress from a relatively new job (2/[address] of the way through orientation with [employer] in [place] but works M/W/F very early hours until 1 pm. This means she takes her sleeping medication by 4 pm those days and doesn't find it as effective. She reports deciding not to go to work on Monday and instead drove to visit a friend (ex) and smoking MJ for the first time in 3 months. She did not tell her significant other that she hadn't gone to work despite knowing he was off. At 7 pm he still had not texted to see where she was which only added to her depression. On her second day of missing work her employer called the police out of concern as she wasn't responding to their calls and texts. At that point she realized her suicidal thoughts were more persistent and that "I better go somewhere this time." Typically when she has been admitted to the hospital before it is at the insistence of others, for example her 04/15 admission to [facility] was because she told a coworker that she "should have waited until my boyfriend left" to take pills to OD, presumably wouldn't be found so a 302 warrant was initiated. Margareth states her sleep hasn't been as good but attributes to her schedule, some hx of binge eating but denies currently. She reports even on a "decent day" she is forgetful and procrastinates and wonders if she has adult ADHD. She has a history of heavy MJ use but denies other than 06/11/21. She denies recent symptoms of patricia. With regards to her bipolar disagnosis, she has experienced primarily recurrent depression and reactive irritability/rage. She did have a period of at least 5 days last year where she did not require much sleep and did "unusual impulsive stuff", like putting alcohol in a thermos and driving will drinking it (even though she's "not a drinker"). Past Psychiatric History Current Psychiatric Diagnosis: MDD, anxiety, Bipolar Outpatient Services: [facility] counseling for therapy; medication for Dr. Boogie (has received treatment at [facility] and [facility] in the past) Previous Psych Admissions: [facility] 04/11, 08/13, 03/16, 04/15 ([place]) Do You Have Access To A Gun?: No History of Previous Suicide Attempt: Yes (Ativan and Nyquil OD) Past Medication Trials: SSRIs (Zoloft, Prozac, Paxil, Celexa, Lexapro, Luvox) SNRIs (Effexor XR 300 mg) other antidepressants (Trintellix, Wellbutrin, Remeron) mood stabilizers (Lamictal, topamax) atypicals (Abilify, Vraylar, Risperdal just added, Seroquel) other anxiety (Ativan, Buspar, Neurontin, propranolol) Allergies Allergy/AdvReac Type Severity Reaction Status Date / Time adhesive AdvReac Intermediate RASH Verified 06/13/21 11:50 nickel AdvReac Intermediate RASH Verified 06/13/21 11:50 aripiprazole AdvReac Mild NAUSEA/VOMI Verified 06/13/21 11:50 TING Home Medications Medication Instructions Recorded Confirmed Type trazodone 100 mg tablet 100 mg PO DAILY PRN 03/03/20 06/13/21 History Flintstones Complete See Rx Instructions .ROUTE .COMPLEX 11/30/20 06/13/21 History Probiotic See Rx Instructions .ROUTE .COMPLEX 11/30/20 06/13/21 History topiramate 50 mg tablet 50 mg PO BID 11/30/20 06/13/21 History naproxen 250 mg tablet 125 mg PO Q12H PRN #30 tab 12/03/20 06/13/21 Rx propranolol 10 mg tablet 10 mg PO QAM #30 tab 12/03/20 06/13/21 Rx cyanocobalamin (vitamin B-12) 3,000 mcg PO DAILY #30 tab 02/25/21 06/13/21 Rx 1,000 mcg tablet ergocalciferol (vitamin D2) 1,250 1,250 mcg PO .weekly #30 cap 02/25/21 06/13/21 Rx mcg (50,000 unit) capsule hydroxyzine HCl 50 mg tablet 50 mg PO HS PRN #60 tab 02/25/21 06/13/21 Rx levothyroxine 50 mcg tablet 50 mcg PO DAILY #90 tab 02/25/21 06/13/21 Rx (Synthroid) gabapentin 300 mg capsule 300 mg PO BID 03/25/21 06/13/21 History norgestrel 0.3 mg-ethinyl 1 tab PO DAILY #28 tab 03/25/21 06/13/21 Rx estradiol 30 mcg tablet (Bar (28)) pantoprazole 40 mg tablet,delayed 40 mg PO DAILY #90 tab 04/07/21 06/13/21 Rx release albuterol sulfate 90 mcg/actuation 1 puff INHALATION QID PRN 06/13/21 06/13/21 History aerosol inhaler desvenlafaxine succinate 25 mg 50 mg PO DAILY 06/13/21 06/13/21 History tablet,extended release 24 hr (Pristiq) lamotrigine 100 mg tablet 200 mg PO QAM MDD 2 in am and 1 06/13/21 06/13/21 History 1/2 in the pm risperidone 1 mg tablet 1 mg PO HS 06/13/21 06/13/21 History Family History Family History of: Depression, Anxiety and Bipolar Alcohol History Hx of Alcohol Use Over the Past 12 Months: No (reports history of over use 2019) AUDIT Total Score: 1 Smoking Use Have You Smoked or Used Tobacco Products in the Last 30 Days: No Smoking Status: Never smoker Substance History Hx of Prescription Med Misuse Over the Past 12 Months: No Hx of Over the Counter Med Misuse Over the Past 12 Months: No Hx of Inhalent Misuse Over the Past 12 Months: No Hx of Organic Substance Use Over the Past 12 Months: Yes (this weekend, none for months prior) Hx of Illegal Substances/Street Drug Use Over Past 12 Months: No Problems as a Result of Past Substance Use: None Identified Personal History Living Arrangements: Apartment Highest Grade Completed: Vocational Training 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 Other Number Of Children: 0 Beliefs That Will Affect Care: None Current Legal Problems: No Hx Legal Problems: No Hx Traumatic Life Events: Yes Patient History Medical History (Updated 06/14/21 @ 12:53 by Daphne Kennedy MD) Abnormal uterine bleeding Acid reflux Asthma Eating disorder Encounter for gynecological examination without abnormal finding Irregular menses Lymphadenopathy OCD (obsessive compulsive disorder) Oral contraceptive pill surveillance Pelvic cramping Sinus tachycardia Stress incontinence Surgical History H/O oral surgery Family History Grandmother (Maternal) Hypertension Lung cancer Grandmother (Paternal) No problems noted. 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 Feels Safe at Home: Yes Childhood Exposure to Second-Hand Smoke: Yes caffeine: Yes during the past year weight has: increased > 10 lbs Dental Care, Regularly: Yes Physical Activity Frequency: Daily Seatbelt Use: always Sunscreen Use: Yes Assistive Devices: Contacts and Glasses Review of Systems Review of Systems: All systems reviewed & are unremarkable except as noted in HPI & below Physical Exam Psychiatric: Orientation: alert and oriented x 3 Apperance: appropriately dressed and appropriately groomed Eye Contact: good eye contact Motor Behavior: no abnormal motor movements Speech: normal rate/rhythm/volume of speech Affect: + depressed affect Mood: + depressed mood Thought Process: goal directed thought process Thought Content: reality based without delusions Suicidal Thoughts: denies suicidal intent; + reports suicidal thoughts and + reports suicidal plan Homicidal Thoughts: denies homicidal thoughts Hallucinations: no auditory hallucinations and no visual hallucinations Cognition: attention grossly intact and language grossly intact Estimated Intelligence: consistent with education level Insight: + limited insight Judgement: + limited judgement Vital Signs (Past 24 Hours): Last Vital Signs Temp 36.7 C 06/14/21 06:52 Pulse 76 06/14/21 06:53 Resp 16 06/14/21 06:52 BP 109/77 06/14/21 06:53 Pulse Ox 98 06/13/21 15:03 Exam Statement: A physical exam was performed in the ED by Dr. Celeste for the purposes of medical clearance. I accept that physical as correct and adequate for the purposes of the inpatient physical exam. Results & Data ([facility]) Laboratory Results Laboratory Results - last 24 hr Labs 06/13/21 06/13/21 06/13/21 11:08 11:08 11:31 WBC RBC Hgb Hct MCV MCH MCHC RDW Std Deviation RDW Coeff of Radhika Plt Count MPV Immature Gran % (Auto) Neut % (Auto) Lymph % (Auto) [place] % (Auto) Eos % (Auto) Baso % (Auto) Neut # (Auto) Lymph # (Auto) [place] # (Auto) Eos # (Auto) Baso # (Auto) Immature Gran # (Auto) Sodium Potassium Chloride Carbon Dioxide Anion Gap BUN Creatinine Est Cr Clr Drug Dosing Est GFR ( Amer) Est GFR (Non-Af Amer) BUN/Creatinine Ratio Glucose Fasting Glucose Calcium Total Bilirubin AST ALT Alkaline Phosphatase Total Protein Albumin Globulin Albumin/Globulin Ratio Triglycerides Cholesterol LDL Cholesterol, Calc VLDL Cholesterol, Calc HDL Cholesterol Cholesterol/HDL Ratio TSH HCG, Qual Urine Color Yellow Urine Appearance Cloudy A Urine pH 7.5 Ur Specific Laura 1.022 Urine Protein Negative Urine Glucose (UA) Negative Urine Ketones Negative Urine Blood Negative Urine Nitrite Negative Urine Bilirubin Negative Urine Urobilinogen Negative Ur Leukocyte Esterase Negative Urine WBC (Auto) 1-5 Urine RBC (Auto) 0-4 U Hyaline Cast (Auto) 0 U Epithel Cells (Auto) >30 H Urine Bacteria (Auto) Negative Salicylates Urine Opiates Screen Neg Ur Methadone, Qual Neg Acetaminophen Urine Barbiturates Neg Ur Phencyclidine (PCP) Neg U Amphetamin/Meth Scrn Neg MDMA (Ecstasy) Screen Neg U Benzodiazepines Scrn Neg Ur Cocaine Metabolite Neg U Marijuana (THC) Screen Pos H Ethyl Alcohol mg/dL SARS-CoV-2, RNA, NAAT NEGATIVE 06/13/21 06/13/21 06/13/21 11:37 11:37 11:37 WBC 8.91 RBC 4.69 Hgb 13.6 Hct 40.3 MCV 85.9 MCH 29.0 MCHC 33.7 RDW Std Deviation 39.0 RDW Coeff of Radhika 12.6 Plt Count 289 MPV 10.6 H Immature Gran % (Auto) 0.6 Neut % (Auto) 59.0 Lymph % (Auto) 29.2 [place] % (Auto) 5.5 Eos % (Auto) 5.4 Baso % (Auto) 0.3 Neut # (Auto) 5.26 Lymph # (Auto) 2.60 [place] # (Auto) 0.49 Eos # (Auto) 0.48 Baso # (Auto) 0.03 Immature Gran # (Auto) 0.05 H Sodium 141 Potassium 3.8 Chloride 111 H Carbon Dioxide 20 L Anion Gap 10.0 BUN 12 Creatinine 0.98 Est Cr Clr Drug Dosing 93.7 Est GFR ( Amer) 91.0 Est GFR (Non-Af Amer) 78.5 BUN/Creatinine Ratio 12.0 Glucose 100 H Fasting Glucose Calcium 8.6 Total Bilirubin 0.2 AST 9 L ALT 21 Alkaline Phosphatase 87 Total Protein 7.3 Albumin 3.8 Globulin 3.5 Albumin/Globulin Ratio 1.1 Triglycerides Cholesterol LDL Cholesterol, Calc VLDL Cholesterol, Calc HDL Cholesterol Cholesterol/HDL Ratio TSH 1.940 HCG, Qual Urine Color Urine Appearance Urine pH Ur Specific Laura Urine Protein Urine Glucose (UA) Urine Ketones Urine Blood Urine Nitrite Urine Bilirubin Urine Urobilinogen Ur Leukocyte Esterase Urine WBC (Auto) Urine RBC (Auto) U Hyaline Cast (Auto) U Epithel Cells (Auto) Urine Bacteria (Auto) Salicylates < 1.7 L Urine Opiates Screen Ur Methadone, Qual Acetaminophen < 2 L Urine Barbiturates Ur Phencyclidine (PCP) U Amphetamin/Meth Scrn MDMA (Ecstasy) Screen U Benzodiazepines Scrn Ur Cocaine Metabolite U Marijuana (THC) Screen Ethyl Alcohol mg/dL SARS-CoV-2, RNA, NAAT 06/13/21 06/13/21 06/14/21 11:37 11:37 08:17 WBC RBC Hgb Hct MCV MCH MCHC RDW Std Deviation RDW Coeff of Radhika Plt Count MPV Immature Gran % (Auto) Neut % (Auto) Lymph % (Auto) [place] % (Auto) Eos % (Auto) Baso % (Auto) Neut # (Auto) Lymph # (Auto) [place] # (Auto) Eos # (Auto) Baso # (Auto) Immature Gran # (Auto) Sodium Potassium Chloride Carbon Dioxide Anion Gap BUN Creatinine Est Cr Clr Drug Dosing Est GFR ( Amer) Est GFR (Non-Af Amer) BUN/Creatinine Ratio Glucose Fasting Glucose 88 Calcium Total Bilirubin AST ALT Alkaline Phosphatase Total Protein Albumin Globulin Albumin/Globulin Ratio Triglycerides 135 Cholesterol 155 LDL Cholesterol, Calc 82 VLDL Cholesterol, Calc 27 HDL Cholesterol 46 Cholesterol/HDL Ratio 3 TSH HCG, Qual Negative Urine Color Urine Appearance Urine pH Ur Specific Laura Urine Protein Urine Glucose (UA) Urine Ketones Urine Blood Urine Nitrite Urine Bilirubin Urine Urobilinogen Ur Leukocyte Esterase Urine WBC (Auto) Urine RBC (Auto) U Hyaline Cast (Auto) U Epithel Cells (Auto) Urine Bacteria (Auto) Salicylates Urine Opiates Screen Ur Methadone, Qual Acetaminophen Urine Barbiturates Ur Phencyclidine (PCP) U Amphetamin/Meth Scrn MDMA (Ecstasy) Screen U Benzodiazepines Scrn Ur Cocaine Metabolite U Marijuana (THC) Screen Ethyl Alcohol mg/dL < 3.0 SARS-CoV-2, RNA, NAAT 06/13/21 06/14/21 11:37 08:17 Fasting Glucose 88 Total Bilirubin 0.2 Alkaline Phosphatase 87 Total Protein 7.3 Globulin 3.5 Albumin/Globulin Ratio 1.1 Triglycerides 135 Cholesterol 155 LDL Cholesterol, Calc 82 VLDL Cholesterol, Calc 27 HDL Cholesterol 46 Cholesterol/HDL Ratio 3 TSH 1.940 Current Inpatient Medications Current Inpatient Medications: Current Inpatient Medications Acetaminophen (Acetaminophen 325 Mg Tab) 650 mg PO Q4H PRN PRN Reason: Headache or Minor Fever Stop: 07/13/21 13:59 Al Hydrox/Mg Hydrox/Simethicone (Aluminum/Magnesium Susp 30 Ml Udc) 30 ml PO Q4H PRN PRN Reason: GI Upset Stop: 07/13/21 13:59 Albuterol (Albuterol Hfa 8 Gm Inhaler) 1 puffs INH QID PRN PRN Reason: Wheezing Stop: 07/13/21 16:59 Bismuth Subsalicylate (Bismuth Subsalicylate Liqd 236 Ml) 15 ml PO PRN PRN PRN Reason: Loose Stool Stop: 07/13/21 13:59 Cyanocobalamin (Cyanocobalamin (Vitamin B-12) 2,500 Mcg Tab.Subl) 2,500 mcg SL DAILY [facility] Stop: 07/14/21 08:59 Last Admin: 06/14/21 09:03 Dose: 2,500 mcg Documented by: Desvenlafaxine Succinate (Desvenlafaxine Succinate Er Tablet 50mg) 1 tab PO DAILY [facility] Stop: 07/14/21 08:59 Last Admin: 06/14/21 09:03 Dose: 1 tab Documented by: Ergocalciferol (Ergocalciferol 50,000 Units 1250 Mcg Cap) 50,000 units PO Lopez@0900 [facility] Stop: 07/20/21 08:59 Gabapentin (Gabapentin 300 Mg Cap) 300 mg PO BID [facility] Stop: 07/13/21 20:59 Last Admin: 06/14/21 09:04 Dose: 300 mg Documented by: Hydroxyzine HCl (Hydroxyzine Hcl 25 Mg Tab) 50 mg PO HS PRN PRN Reason: insomnia Stop: 07/13/21 13:53 Hydroxyzine HCl (Hydroxyzine Hcl 25 Mg Tab) 25 mg PO Q4H PRN PRN Reason: Anxiety Stop: 07/13/21 13:59 Lamotrigine (Lamotrigine 100 Mg Tab) 200 mg PO QAM [facility] Stop: 07/13/21 13:59 Last Admin: 06/14/21 09:04 Dose: 200 mg Documented by: Lamotrigine (Lamotrigine 100 Mg Tab) 150 mg PO QPM [facility] Stop: 07/13/21 20:59 Last Admin: 06/13/21 20:25 Dose: 150 mg Documented by: Levothyroxine Sodium (Levothyroxine Sodium 50 Mcg Tablet) 50 mcg PO DAILYBB [facility] Stop: 07/14/21 07:59 Last Admin: 06/14/21 09:03 Dose: 50 mcg Documented by: Magnesium Hydroxide (Magnesium Hydroxide Susp 30 Ml Udc) 30 ml PO DAILY PRN PRN Reason: Constipation Stop: 07/13/21 13:59 Miscellaneous (Flintstones Complete ~ Order Awaiting Action) 1 ea N/A QS [facility] Stop: 07/13/21 15:59 Last Admin: 06/14/21 08:59 Dose: Not Given Documented by: Miscellaneous (Probiotic ~ Order Awaiting Action) 1 ea N/A QS [facility] Stop: 07/13/21 15:59 Last Admin: 06/14/21 08:59 Dose: Not Given Documented by: Naproxen (Naproxen 250 Mg Tab) 125 mg PO Q12H PRN PRN Reason: Pain, Mild Stop: 07/13/21 13:53 Elinest ~ Non- Formulary Patient's Own Med 1 ea PO DAILY [facility] Stop: 07/14/21 08:59 Last Admin: 06/14/21 09:06 Dose: 1 ea Documented by: Pantoprazole Sodium (Pantoprazole 40 Mg Tab) 40 mg PO DAILY [facility] Stop: 07/14/21 08:59 Last Admin: 06/14/21 09:06 Dose: 40 mg Documented by: Propranolol HCl (Propranolol Hcl 10 Mg Tab) 10 mg PO QAM [facility] Stop: 07/14/21 08:59 Last Admin: 06/14/21 09:06 Dose: 10 mg Documented by: Risperidone (Risperidone 1 Mg Tablet) 1 mg PO HS [facility] Stop: 07/13/21 20:59 Last Admin: 06/13/21 21:11 Dose: 1 mg Documented by: Sodium Chloride (Sodium Chloride 0.65% Na Soln 45 Ml (Primera)) 1 - 2 sprays NA PRN PRN PRN Reason: Nasal Dryness/Congestion Stop: 07/13/21 13:59 Topiramate (Topiramate 50 Mg Tab) 50 mg PO BID [facility] Stop: 07/13/21 20:59 Last Admin: 06/14/21 09:04 Dose: 50 mg Documented by: Trazodone HCl (Trazodone Hcl 100 Mg Tab) 100 mg PO DAILY PRN PRN Reason: Anxiety/Insomnia Stop: 07/13/21 13:53
[2021-06-14] MEDS: risperiDONE 1 MG TABLET PO SCH (21:29)
[2021-06-14] MEDS: hydrOXYzine HCl 25 MG TAB PO PRN (22:54)
[2021-06-15] MEDS: CYANOCOBALAMIN (VITAMIN B-12) 2,500 MCG TAB.SUBL SL SCH (09:07)
[2021-06-15] MEDS: LEVOTHYROXINE SODIUM 50 MCG TABLET PO SCH (09:07)
[2021-06-15] MEDS: TOPIRAMATE 50 MG TAB PO SCH ×2 (09:08→21:50)
[2021-06-15] MEDS: GABAPENTIN 300 MG CAP PO SCH ×2 (09:08→21:51)
[2021-06-15] MEDS: lamoTRIgine 100 MG TAB PO SCH ×2 (09:08→21:50)
[2021-06-15] MEDS: PROPRANOLOL HCL 10 MG TAB PO SCH (09:08)
[2021-06-15] MEDS: DESVENLAFAXINE SUCCINATE ER TABLET 50MG PO SCH (09:09)
[2021-06-15] MEDS: PANTOprazole 40 MG TAB PO SCH (09:09)
[2021-06-15] MEDS: ELINEST PO SCH (09:10)
--- NOTE | 2021-06-15 13:13 | Psychiatric Progress Note ---
Date of Service June 15, 2021 Impression / Recommendations Impression Margareth is a 26-year-old female with a history of recurrent depression, brief hypomania with increase in impulsivity/reactivity/substance use, who presents with ongoing SI with plan to OD on her sleeping pills (hydroxyzine and trazodone). She has a history of overdose and has failed multiple medication trials. She is overwhelmed by work and keeping her symptoms relatively secret from her coworkers and partner which adds to her risk. 06/15/21: engaged in therapy, ongoing SI (1) Bipolar II disorder with or without full interepisode recovery: (2) Vitamin D deficiency: 06/15/21: Reviewed that care was coordinated with Dr. Boogie and we feel continuing the Pristiq trial is in her best interest, particularly given past positive response to Effexor XR 300 mg. Ideally would interim dose to 75 mg but 2 caps and is non formulary. 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 06/14/21: The patient was admitted to the [facility] ([facility] mental health unit) on q15 min checks (behavioral with suicide precautions) for safety. The patient will participate in group, recreational, and milieu therapies and will be offered additional individual and family sessions as clinically appropriate. Risks/benefits/alternatives reviewed re: her current medications. Discussion in cluded but was not limited to need for monitoring for metabolic/TD, and risks in OD. Will coordinate care with outpatient psychiatrist before initiating additional medication changes. Pristiq is non-formulary and once dose is decided she will need rx soon. Labs reviewed as thyroid seems appropriately corrected. She is due to Vitamin D level soon so will draw here. Inventory Assets Strengths: intelligent, has consistently participated in outpatient treatment Needs: safety plan around medications, meeting with boyfriend. Risk Factors Assessment : Yes Do You Have Access To A Gun?: No Mental Health Diagnoses: Yes Previous Attempt: Yes Previous Psychiatric Hospitalization: Yes Protective Factors Assessment Employed: Yes Stable Relationships: Yes Interval History Identifying Information MARGARETH JUDGE is a 26-year-old F who currently lives in [place] with her boyfriend, has a history of suicidal ideation, and was admitted on 06/13/21 14:00 on a 201 voluntary commitment for same. Chief Complaint "I've just always had low self-esteem". Review of Systems Sleep Information Total Hours of Sleep: 6.5 Sleep Comments: pt appeared to sleep 1.5 hrs during evening shift. pt on q-15 minute checks Meal Information Percent Meal Consumed - Breakfast: 75 Percent Meal Consumed - Lunch: 75 Percent Meal Consumed - Dinner: 100 Subjective Subjective Patient was seen & assessed and interval progress reviewed with nursing and social work. working in groups and 1-on-1 with therapeutic staff on identifying healthier coping strategies and self esteem. She doesn't plan to return to work. Discussed music and hiking (weather limits). Still feels her mood is the same as admission and "the depression is always there even if the stressor is gone". She does identify that Risperdal has been helpful for her mood swings/anger outbursts and "taking off in a araujo and driving away" when argues with boyfriend. Physical Exam Psychiatric Orientation: alert and oriented x 3 Apperance: appropriately dressed and appropriately groomed Eye Contact: good eye contact Motor Behavior: no abnormal motor movements Speech: normal rate/rhythm/volume of speech Affect: + depressed affect Mood: + depressed mood Thought Process: goal directed thought process Thought Content: reality based without delusions Suicidal Thoughts: denies suicidal intent; + reports suicidal thoughts and + reports suicidal plan Homicidal Thoughts: denies homicidal thoughts Hallucinations: no auditory hallucinations and no visual hallucinations Cognition: attention grossly intact and language grossly intact Estimated Intelligence: consistent with education level Insight: + limited insight Judgement: + limited judgement Vital Signs (Past 24 Hours) Last Vital Signs Temp 36.9 C 06/15/21 06:51 Pulse 93 H 06/15/21 06:51 Resp 16 06/15/21 06:51 BP 112/78 06/15/21 06:51 Pulse Ox 98 06/13/21 15:03 Results & Data ([facility]) Current Inpatient Medications Current Inpatient Medications: Current Inpatient Medications Acetaminophen (Acetaminophen 325 Mg Tab) 650 mg PO Q4H PRN PRN Reason: Headache or Minor Fever Stop: 07/13/21 13:59 Al Hydrox/Mg Hydrox/Simethicone (Aluminum/Magnesium Susp 30 Ml Udc) 30 ml PO Q4H PRN PRN Reason: GI Upset Stop: 07/13/21 13:59 Albuterol (Albuterol Hfa 8 Gm Inhaler) 1 puffs INH QID PRN PRN Reason: Wheezing Stop: 07/13/21 16:59 Bismuth Subsalicylate (Bismuth Subsalicylate Liqd 236 Ml) 15 ml PO PRN PRN PRN Reason: Loose Stool Stop: 07/13/21 13:59 Cyanocobalamin (Cyanocobalamin (Vitamin B-12) 2,500 Mcg Tab.Subl) 2,500 mcg SL DAILY [facility] Stop: 07/14/21 08:59 Last Admin: 06/15/21 09:07 Dose: 2,500 mcg Documented by: Desvenlafaxine Succinate (Desvenlafaxine Succinate Er Tablet 50mg) 1 tab PO DAILY [facility] Stop: 07/14/21 08:59 Last Admin: 06/15/21 09:09 Dose: 1 tab Documented by: Ergocalciferol (Ergocalciferol 50,000 Units 1250 Mcg Cap) 50,000 units PO Lopez@0900 [facility] Stop: 07/20/21 08:59 Gabapentin (Gabapentin 300 Mg Cap) 300 mg PO BID [facility] Stop: 07/13/21 20:59 Last Admin: 06/15/21 09:08 Dose: 300 mg Documented by: Hydroxyzine HCl (Hydroxyzine Hcl 25 Mg Tab) 50 mg PO HS PRN PRN Reason: insomnia Stop: 07/13/21 13:53 Last Admin: 06/14/21 22:54 Dose: 50 mg Documented by: Hydroxyzine HCl (Hydroxyzine Hcl 25 Mg Tab) 25 mg PO Q4H PRN PRN Reason: Anxiety Stop: 07/13/21 13:59 Lamotrigine (Lamotrigine 100 Mg Tab) 200 mg PO QAM [facility] Stop: 07/13/21 13:59 Last Admin: 06/15/21 09:08 Dose: 200 mg Documented by: Lamotrigine (Lamotrigine 100 Mg Tab) 150 mg PO QPM [facility] Stop: 07/13/21 20:59 Last Admin: 06/14/21 20:51 Dose: 150 mg Documented by: Levothyroxine Sodium (Levothyroxine Sodium 50 Mcg Tablet) 50 mcg PO DAILYBB [facility] Stop: 07/14/21 07:59 Last Admin: 06/15/21 09:07 Dose: 50 mcg Documented by: Magnesium Hydroxide (Magnesium Hydroxide Susp 30 Ml Udc) 30 ml PO DAILY PRN PRN Reason: Constipation Stop: 07/13/21 13:59 Miscellaneous (Flintstones Complete ~ Order Awaiting Action) 1 ea N/A QS [facility] Stop: 07/13/21 15:59 Last Admin: 06/15/21 09:06 Dose: Not Given Documented by: Miscellaneous (Probiotic ~ Order Awaiting Action) 1 ea N/A QS [facility] Stop: 07/13/21 15:59 Last Admin: 06/15/21 09:06 Dose: Not Given Documented by: Naproxen (Naproxen 250 Mg Tab) 125 mg PO Q12H PRN PRN Reason: Pain, Mild Stop: 07/13/21 13:53 Elinest ~ Non- Formulary Patient's Own Med 1 ea PO DAILY [facility] Stop: 07/14/21 08:59 Last Admin: 06/15/21 09:10 Dose: 1 ea Documented by: Pantoprazole Sodium (Pantoprazole 40 Mg Tab) 40 mg PO DAILY@0700 [facility] Stop: 07/16/21 06:59 Propranolol HCl (Propranolol Hcl 10 Mg Tab) 10 mg PO QAM [facility] Stop: 07/14/21 08:59 Last Admin: 06/15/21 09:08 Dose: 10 mg Documented by: Risperidone (Risperidone 1 Mg Tablet) 1 mg PO HS [facility] Stop: 07/13/21 20:59 Last Admin: 06/14/21 21:29 Dose: 1 mg Documented by: Sodium Chloride (Sodium Chloride 0.65% Na Soln 45 Ml (Rena Lara)) 1 - 2 sprays NA PRN PRN PRN Reason: Nasal Dryness/Congestion Stop: 07/13/21 13:59 Topiramate (Topiramate 50 Mg Tab) 50 mg PO BID [facility] Stop: 07/13/21 20:59 Last Admin: 06/15/21 09:08 Dose: 50 mg Documented by: Trazodone HCl (Trazodone Hcl 100 Mg Tab) 100 mg PO DAILY PRN PRN Reason: Anxiety/Insomnia Stop: 07/13/21 13:53 Last Admin: 06/14/21 23:07 Dose: 100 mg Documented by: Mental Health & Subst Abuse Tx Psychiatrist Name of Psychiatrist: Roxana Boogie Psychiatrist's [facility]ment [facility] [address], [place] Therapist Name of Therapist: Reggie Blanchard Therapist's Date of Therapist Appointment: 06/29/21 Time of Therapist Appointment: 3:00 PM Therapy Appointment Comment: [address], [facility] [address], [place] Post Discharge Appointments Primary Care Physician Name Of Family Doctor: BRYANNA Blair Primary Care Date of Appointment with PCP: 06/28/21 Time of Appointment with PCP: 4:00 PM Provider Appointment Comment: [address], [place], [place] Contact Information Discharge Discharge [address]: [address] [place] [address] Ernesto Romano [address]
[2021-06-15] MEDS: hydrOXYzine HCl 25 MG TAB PO PRN (21:50)
[2021-06-15] MEDS: risperiDONE 1 MG TABLET PO SCH (21:51)
[2021-06-16] MEDS: PANTOprazole 40 MG TAB PO SCH (06:53)
[2021-06-16] MEDS: DESVENLAFAXINE SUCCINATE ER TABLET 50MG PO SCH (09:18)
[2021-06-16] MEDS: CYANOCOBALAMIN (VITAMIN B-12) 2,500 MCG TAB.SUBL SL SCH (09:19)
[2021-06-16] MEDS: ELINEST PO SCH (09:19)
[2021-06-16] MEDS: GABAPENTIN 300 MG CAP PO SCH ×2 (09:19→21:31)
[2021-06-16] MEDS: TOPIRAMATE 50 MG TAB PO SCH ×2 (09:19→21:30)
[2021-06-16] MEDS: LEVOTHYROXINE SODIUM 50 MCG TABLET PO SCH (09:20)
[2021-06-16] MEDS: lamoTRIgine 100 MG TAB PO SCH ×2 (09:20→21:31)
[2021-06-16 09:46] LABS: Marijuana Quant, GCMS Urine 33 ng/mL (<5)
[2021-06-16] MEDS: PROPRANOLOL HCL 10 MG TAB PO SCH (10:27)
--- NOTE | 2021-06-16 13:03 | Psychiatric Progress Note ---
Date of Service June 16, 2021 Impression / Recommendations Impression Margareth is a 26-year-old female with a history of recurrent depression, brief hypomania with increase in impulsivity/reactivity/substance use, who presents with ongoing SI with plan to OD on her sleeping pills (hydroxyzine and trazodone). She has a history of overdose and has failed multiple medication trials. She is overwhelmed by work and keeping her symptoms relatively secret from her coworkers and partner which adds to her risk. 06/16/21: SI more passive but unable to safety plan. (1) Bipolar II disorder with or without full interepisode recovery: (2) Vitamin D deficiency: 06/16/21: Patient agreeable to 100 mg Pristiq starting tomorrow. Given DBT handout. 06/15/21: Reviewed that care was coordinated with Dr. Boogie and we feel continuing the Pristiq trial is in her best interest, particularly given past positive response to Effexor XR 300 mg. Ideally would interim dose to 75 mg but 2 caps and is non formulary. Checking with pharmacy in meantime 100 mg Pristiq ordered by [employer] in [facility] for picker feeder tomorrow afternoon with $10 copay. 06/14/21: The patient was admitted to the [facility] ([facility] inpatient mental health unit) on q15 min checks (behavioral with suicide precautions) for safety. The patient will participate in group, recreational, and milieu therapies and will be offered additional individual and family sessions as clinically appropriate. Risks/benefits/alternatives reviewed re: her current medications. Discussion included but was not limited to need for monitoring for metabolic/TD, and risks in OD. Will coordinate care with outpatient psychiatrist before initiating additional medication changes. Pristiq is non-formulary and once dose is decided she will need rx soon. Labs reviewed as thyroid seems appropriately corrected. She is due to Vitamin D level soon so will draw here. Inventory Assets Strengths: intelligent, has consistently participated in outpatient treatment Needs: safety plan around medications, meeting with boyfriend. Risk Factors Assessment : Yes Do You Have Access To A Gun?: No Mental Health Diagnoses: Yes Previous Attempt: Yes Previous Psychiatric Hospitalization: Yes Protective Factors Assessment Employed: Yes Stable Relationships: Yes Interval History Identifying Information MARGARETH JUDGE is a 26-year-old F who currently lives in [place] with her boyfriend, has a history of suicidal ideation, and was admitted on 06/13/21 14:00 on a 201 voluntary commitment for same. Chief Complaint "I can read but still really undecided about work and not triggered here so that stresses me out". Review of Systems Sleep Information Total Hours of Sleep: 6.5 Sleep Comments: pt appeared to sleep 1.5 hrs during evening shift. pt on q-15 minute checks Meal Information Percent Meal Consumed - Breakfast: 90 Percent Meal Consumed - Lunch: 75 Percent Meal Consumed - Dinner: 75 Subjective Subjective Patient was seen & assessed and interval progress reviewed with treatment team. Boyfriend to bring Pristiq for tomorrow am's dose. She cannot contract for safety outside of the hospital as no clear plan about work. Needs meeting with boyfriend. She is attending groups. Sleep is restless and would like trazadone standing order. Physical Exam Psychiatric Orientation: alert and oriented x 3 Apperance: appropriately dressed and appropriately groomed Eye Contact: good eye contact Motor Behavior: no abnormal motor movements Speech: normal rate/rhythm/volume of speech Affect: + depressed affect Mood: + depressed mood Thought Process: goal directed thought process Thought Content: reality based without delusions Suicidal Thoughts: denies suicidal intent; + reports suicidal thoughts Homicidal Thoughts: denies homicidal thoughts Hallucinations: no auditory hallucinations and no visual hallucinations Cognition: attention grossly intact and language grossly intact Estimated Intelligence: consistent with education level Insight: + limited insight Judgement: + limited judgement Vital Signs (Past 24 Hours) Last Vital Signs Temp 36.9 C 06/16/21 06:42 Pulse 82 06/16/21 06:43 Resp 16 06/16/21 06:42 BP 105/71 06/16/21 06:43 Pulse Ox 98 06/13/21 15:03 Results & Data ([facility]) Laboratory Results Laboratory Results - last 24 hr 06/13/21 11:08 U Marijuana THC Carboxy 33 H Drug Screen Comment SEE NOTE Current Inpatient Medications Current Inpatient Medications: Current Inpatient Medications Acetaminophen (Acetaminophen 325 Mg Tab) 650 mg PO Q4H PRN PRN Reason: Headache or Minor Fever Stop: 07/13/21 13:59 Al Hydrox/Mg Hydrox/Simethicone (Aluminum/Magnesium Susp 30 Ml Udc) 30 ml PO Q4H PRN PRN Reason: GI Upset Stop: 07/13/21 13:59 Albuterol (Albuterol Hfa 8 Gm Inhaler) 1 puffs INH QID PRN PRN Reason: Wheezing Stop: 07/13/21 16:59 Bismuth Subsalicylate (Bismuth Subsalicylate Liqd 236 Ml) 15 ml PO PRN PRN PRN Reason: Loose Stool Stop: 07/13/21 13:59 Cyanocobalamin (Cyanocobalamin (Vitamin B-12) 2,500 Mcg Tab.Subl) 2,500 mcg SL DAILY [facility] Stop: 07/14/21 08:59 Last Admin: 06/16/21 09:19 Dose: 2,500 mcg Documented by: Ergocalciferol (Ergocalciferol 50,000 Units 1250 Mcg Cap) 50,000 units PO Lopez@0900 [facility] Stop: 07/20/21 08:59 Gabapentin (Gabapentin 300 Mg Cap) 300 mg PO BID [facility] Stop: 07/13/21 20:59 Last Admin: 06/16/21 09:19 Dose: 300 mg Documented by: Hydroxyzine HCl (Hydroxyzine Hcl 25 Mg Tab) 50 mg PO HS PRN PRN Reason: insomnia Stop: 07/13/21 13:53 Last Admin: 06/15/21 21:50 Dose: 50 mg Documented by: Hydroxyzine HCl (Hydroxyzine Hcl 25 Mg Tab) 25 mg PO Q4H PRN PRN Reason: Anxiety Stop: 07/13/21 13:59 Lamotrigine (Lamotrigine 100 Mg Tab) 200 mg PO QAM [facility] Stop: 07/13/21 13:59 Last Admin: 06/16/21 09:20 Dose: 200 mg Documented by: Lamotrigine (Lamotrigine 100 Mg Tab) 150 mg PO QPM [facility] Stop: 07/13/21 20:59 Last Admin: 06/15/21 21:50 Dose: 150 mg Documented by: Levothyroxine Sodium (Levothyroxine Sodium 50 Mcg Tablet) 50 mcg PO DAILYBB [facility] Stop: 07/14/21 07:59 Last Admin: 06/16/21 09:20 Dose: 50 mcg Documented by: Magnesium Hydroxide (Magnesium Hydroxide Susp 30 Ml Udc) 30 ml PO DAILY PRN PRN Reason: Constipation Stop: 07/13/21 13:59 Miscellaneous (Flintstones Complete ~ Order Awaiting Action) 1 ea N/A QS [facility] Stop: 07/13/21 15:59 Last Admin: 06/16/21 09:21 Dose: Not Given Documented by: Miscellaneous (Probiotic ~ Order Awaiting Action) 1 ea N/A QS [facility] Stop: 07/13/21 15:59 Last Admin: 06/16/21 09:21 Dose: Not Given Documented by: Naproxen (Naproxen 250 Mg Tab) 125 mg PO Q12H PRN PRN Reason: Pain, Mild Stop: 07/13/21 13:53 Elinest ~ Non- Formulary Patient's Own Med 1 ea PO DAILY [facility] Stop: 07/14/21 08:59 Last Admin: 06/16/21 09:19 Dose: 1 ea Documented by: Non-Formulary Medication ([facility]venlafaxine) [facility] [place]: 07/17/21 08:59 Pantoprazole Sodium (Pantoprazole 40 Mg Tab) 40 mg PO DAILY@0700 [facility] Stop: 07/16/21 06:59 Last Admin: 06/16/21 06:53 Dose: 40 mg Documented by: Propranolol HCl (Propranolol Hcl 10 Mg Tab) 10 mg PO QAM [facility] Stop: 07/14/21 08:59 Last Admin: 06/16/21 10:27 Dose: 10 mg Documented by: Risperidone (Risperidone 1 Mg Tablet) 1 mg PO HS [facility] Stop: 07/13/21 20:59 Last Admin: 06/15/21 21:51 Dose: 1 mg Documented by: Sodium Chloride (Sodium Chloride 0.65% Na Soln 45 Ml ([place])) 1 - 2 sprays NA PRN PRN PRN Reason: Nasal Dryness/Congestion Stop: 07/13/21 13:59 Topiramate (Topiramate 50 Mg Tab) 50 mg PO BID [facility] Stop: 07/13/21 20:59 Last Admin: 06/16/21 09:19 Dose: 50 mg Documented by: Trazodone HCl (Trazodone Hcl 100 Mg Tab) 100 mg PO DAILY PRN PRN Reason: Anxiety/Insomnia Stop: 07/13/21 13:53 Last Admin: 06/14/21 23:07 Dose: 100 mg Documented by: Mental Health & Subst Abuse Tx Psychiatrist Name of Psychiatrist: Roxana Boogie Psychiatrist's Date of Appointment with Psychiatrist: 06/21/21 Time of Appointment with Psychiatrist: 1:30 PM Psychiatric Appointment Comment: [address] [facility], [facility] [address], [place] Therapist Name of Therapist: Reggie Blanchard Therapist's Date of Therapist Appointment: 06/29/21 Time of Therapist Appointment: 3:00 PM Therapy Appointment Comment: [address], [address], [place] Post Discharge Appointments Primary Care Physician Name Of Family Doctor: BRYANNA Blair Primary Care Date of Appointment with PCP: 06/28/21 Time of Appointment with PCP: 4:00 PM Provider Appointment Comment: [address], [place], [place] Contact Information Discharge Discharge Address: [address] [place] [address] Ernesto Romano [address]
[2021-06-16] MEDS ORDERED: Nursing to Pharmacy Communication SCH (16:15)
[2021-06-16] MEDS: hydrOXYzine HCl 25 MG TAB PO PRN (21:30)
[2021-06-16] MEDS: risperiDONE 1 MG TABLET PO SCH (21:30)
[2021-06-16] MEDS: traZODone HCL 100 MG TAB PO SCH (21:30)
[2021-06-17] MEDS: PANTOprazole 40 MG TAB PO SCH (06:59)
[2021-06-17] MEDS: LEVOTHYROXINE SODIUM 50 MCG TABLET PO SCH (08:31)
[2021-06-17] MEDS: DESVENLAFAXINE SUCCINATE 100 MG ER TABLET PO SCH (09:30)
[2021-06-17] MEDS: CYANOCOBALAMIN (VITAMIN B-12) 2,500 MCG TAB.SUBL SL SCH (09:30)
[2021-06-17] MEDS: lamoTRIgine 100 MG TAB PO SCH ×3 (09:31→20:47)
[2021-06-17] MEDS: MULTIVITAMIN CHEWABLE TAB PO SCH (09:31)
[2021-06-17] MEDS: ADVANCED PROBIOTIC 1250 MG CAPSULE PO SCH (09:31)
[2021-06-17] MEDS: GABAPENTIN 300 MG CAP PO SCH ×2 (09:31→20:45)
[2021-06-17] MEDS: PROPRANOLOL HCL 10 MG TAB PO SCH (09:32)
[2021-06-17] MEDS: ELINEST PO SCH (09:32)
[2021-06-17] MEDS: TOPIRAMATE 50 MG TAB PO SCH ×2 (09:33→20:48)
--- NOTE | 2021-06-17 14:54 | Psychiatric Progress Note ---
Date of Service June 17, 2021 Impression / Recommendations Impression Margareth is a 26-year-old female with a history of recurrent depression, brief hypomania with increase in impulsivity/reactivity/substance use, who presents with ongoing SI with plan to OD on her sleeping pills (hydroxyzine and trazodone). She has a history of overdose and has failed multiple medication trials. She is overwhelmed by work and keeping her symptoms relatively secret from her coworkers and partner which adds to her risk. 06/17/21: improving (1) Bipolar II disorder with or without full interepisode recovery: (2) Vitamin D deficiency: 06/17/21: continue Pristiq 100 mg trial, family meeting 06/16/21: Patient agreeable to 100 mg Pristiq starting tomorrow. Given DBT handout. 06/15/21: Reviewed that care was coordinated with Dr. Boogie and we feel continuing the Pristiq trial is in her best interest, particularly given past positive response to Effexor XR 300 mg. Ideally would interim dose to 75 mg but 2 caps and is non formulary. Checking with pharmacy in meantime 100 mg Pristiq ordered by [facility] in [facility] for product picker tomorrow afternoon with $10 copay. 06/14/21: The patient was admitted to the [facility] ([facility] inpatient mental health unit) on q15 min checks (behavioral with suicide precautions) for safety. The patient will participate in group, recreational, and milieu therapies and will be offered additional individual and family sessions as clinically appropriate. Risks/benefits/alternatives reviewed re: her current medications. Discussion included but was not limited to need for monitoring for metabolic/TD, and risks in OD. Will coordinate care with outpatient psychiatrist before initiating additional medication changes. Pristiq is non-formulary and once dose is decided she will need rx soon. Labs reviewed as thyroid seems appropriately corrected. She is due to Vitamin D level soon so will draw here. Inventory Assets Strengths: intelligent, has consistently participated in outpatient treatment Needs: safety plan around medications, meeting with boyfriend. Risk Factors Assessment : Yes Do You Have Access To A Gun?: No Mental Health Diagnoses: Yes Previous Attempt: Yes Previous Psychiatric Hospitalization: Yes Protective Factors Assessment Employed: Yes Stable Relationships: Yes Interval History Identifying Information MARGARETH JUDGE is a 26-year-old F who currently lives in [place] with her boyfriend, has a history of suicidal ideation, and was admitted on 06/13/21 14:00 on a 201 voluntary commitment for same. Chief Complaint "I'm starting to feel like I'd like to spend time at home with my boyfriend". Review of Systems Sleep Information Total Hours of Sleep: 6.5 Sleep Comments: pt appeared to sleep 1.5 hrs during evening shift. pt on q-15 minute checks Meal Information Percent Meal Consumed - Breakfast: 75 Percent Meal Consumed - Lunch: 75 Percent Meal Consumed - Dinner: 100 Subjective Subjective Patient was seen & assessed and interval progress reviewed with nursing and social work. Tolerating increase in Pristiq. scheduled for family meeting tomorrow. Active participant in groups. States that she would like to be off work for a week or two before she "deals with" her boss but states that she doesn't plan to return. Physical Exam Psychiatric Orientation: alert and oriented x 3 Apperance: appropriately dressed and appropriately groomed Eye Contact: good eye contact Motor Behavior: no abnormal motor movements Speech: normal rate/rhythm/volume of speech Affect: euthymic affect Mood: + depressed mood Thought Process: goal directed thought process Thought Content: reality based without delusions Suicidal Thoughts: denies suicidal thoughts, denies suicidal plan and denies suicidal intent Homicidal Thoughts: denies homicidal thoughts Hallucinations: no auditory hallucinations and no visual hallucinations Cognition: attention grossly intact and language grossly intact Estimated Intelligence: consistent with education level Insight: + fair insight Judgement: + limited judgement Vital Signs (Past 24 Hours) Last Vital Signs Temp 37.0 C 06/17/21 06:38 Pulse 81 06/17/21 06:38 Resp 16 06/17/21 06:38 BP 110/77 06/17/21 06:38 Pulse Ox 98 06/13/21 15:03 Results & Data ([facility]) Laboratory Results Laboratory Results - last 24 hr 06/17/21 08:25 25-OH Vitamin D Total 54.4 Current Inpatient Medications Current Inpatient Medications: Current Inpatient Medications Acetaminophen (Acetaminophen 325 Mg Tab) 650 mg PO Q4H PRN PRN Reason: Headache or Minor Fever Stop: 07/13/21 13:59 Al Hydrox/Mg Hydrox/Simethicone (Aluminum/Magnesium Susp 30 Ml Udc) 30 ml PO Q4H PRN PRN Reason: GI Upset Stop: 07/13/21 13:59 Albuterol (Albuterol Hfa 8 Gm Inhaler) 1 puffs INH QID PRN PRN Reason: Wheezing Stop: 07/13/21 16:59 Bismuth Subsalicylate (Bismuth Subsalicylate Liqd 236 Ml) 15 ml PO PRN PRN PRN Reason: Loose Stool Stop: 07/13/21 13:59 Cyanocobalamin (Cyanocobalamin (Vitamin B-12) 2,500 Mcg Tab.Subl) 2,500 mcg SL DAILY [facility] Stop: 07/14/21 08:59 Last Admin: 06/17/21 09:30 Dose: 2,500 mcg Documented by: Desvenlafaxine Succinate (Desvenlafaxine Succinate 100 Mg Er Tablet) 1 tab PO DAILY [facility]; Protocol Stop: 07/17/21 08:59 Last Admin: 06/17/21 09:30 Dose: 1 tab Documented by: Ergocalciferol (Ergocalciferol 50,000 Units 1250 Mcg Cap) 50,000 units PO Lopez@0900 [facility] Stop: 07/20/21 08:59 Gabapentin (Gabapentin 300 Mg Cap) 300 mg PO BID [facility] Stop: 07/13/21 20:59 Last Admin: 06/17/21 09:31 Dose: 300 mg Documented by: Hydroxyzine HCl (Hydroxyzine Hcl 25 Mg Tab) 50 mg PO HS PRN PRN Reason: insomnia Stop: 07/13/21 13:53 Last Admin: 06/16/21 21:30 Dose: 50 mg Documented by: Hydroxyzine HCl (Hydroxyzine Hcl 25 Mg Tab) 25 mg PO Q4H PRN PRN Reason: Anxiety Stop: 07/13/21 13:59 Lactobacillus Acidoph/Casei/Rhamnos (Advanced Probiotic 1250 Mg Capsule) 2 cap PO DAILY [facility] Stop: 07/17/21 08:59 Last Admin: 06/17/21 09:31 Dose: 2 cap Documented by: Lamotrigine (Lamotrigine 100 Mg Tab) 200 mg PO QAM [facility] Stop: 07/13/21 13:59 Last Admin: 06/17/21 09:31 Dose: 200 mg Documented by: Lamotrigine (Lamotrigine 100 Mg Tab) 150 mg PO QPM [facility] Stop: 07/13/21 20:59 Last Admin: 06/16/21 21:31 Dose: 150 mg Documented by: Levothyroxine Sodium (Levothyroxine Sodium 50 Mcg Tablet) 50 mcg PO DAILYBB [facility] Stop: 07/14/21 07:59 Last Admin: 06/17/21 08:31 Dose: 50 mcg Documented by: Magnesium Hydroxide (Magnesium Hydroxide Susp 30 Ml Udc) 30 ml PO DAILY PRN PRN Reason: Constipation Stop: 07/13/21 13:59 Multivitamins/Folic Acid/Vitamin C (Multivitamin Chewable Tab) 1 tab PO DAILY [facility] Stop: 07/17/21 08:59 Last Admin: 06/17/21 09:31 Dose: 1 tab Documented by: Naproxen (Naproxen 250 Mg Tab) 125 mg PO Q12H PRN PRN Reason: Pain, Mild Stop: 07/13/21 13:53 Elinest ~ Non- Formulary Patient's Own Med 1 ea PO DAILY [facility] Stop: 07/14/21 08:59 Last Admin: 06/17/21 09:32 Dose: 1 ea Documented by: Pantoprazole Sodium (Pantoprazole 40 Mg Tab) 40 mg PO DAILY@0700 [facility] Stop: 07/16/21 06:59 Last Admin: 06/17/21 06:59 Dose: 40 mg Documented by: Propranolol HCl (Propranolol Hcl 10 Mg Tab) 10 mg PO QAM [facility] Stop: 07/14/21 08:59 Last Admin: 06/17/21 09:32 Dose: 10 mg Documented by: Risperidone (Risperidone 1 Mg Tablet) 1 mg PO HS [facility] Stop: 07/13/21 20:59 Last Admin: 06/16/21 21:30 Dose: 1 mg Documented by: Sodium Chloride (Sodium Chloride 0.65% Na Soln 45 Ml ([place])) 1 - 2 sprays NA PRN PRN PRN Reason: Nasal Dryness/Congestion Stop: 07/13/21 13:59 Topiramate (Topiramate 50 Mg Tab) 50 mg PO BID [facility] Stop: 07/13/21 20:59 Last Admin: 06/17/21 09:33 Dose: 50 mg Documented by: Trazodone HCl (Trazodone Hcl 100 Mg Tab) 100 mg PO [facility] Stop: 07/16/21 21:59 Last Admin: 06/16/21 21:30 Dose: 100 mg Documented by: Mental Health & Subst Abuse Tx Psychiatrist Name of Psychiatrist: Roxana Boogie Psychiatrist's Date of Appointment with Psychiatrist: 06/21/21 Time of Appointment with Psychiatrist: 1:30 PM Psychiatric Appointment Comment: [address] [facility], [facility] [address], [place] Therapist Name of Therapist: Reggie Blanchard Therapist's Date of Therapist Appointment: 06/29/21 Time of Therapist Appointment: 3:00 PM Therapy Appointment Comment: [address] [facility], [facility], [place] Post Discharge Appointments Primary Care Physician Name Of Family Doctor: ETIENNE - BRYANNA Abdul Primary Care Date of Appointment with PCP: 06/28/21 Time of Appointment with PCP: 4:00 PM Provider Appointment Comment: [address], [place], [place] Contact Information Discharge Discharge [address]: [address] [place] [address] Ernesto Romano [id number]
[2021-06-17] MEDS: risperiDONE 1 MG TABLET PO SCH (20:48)
[2021-06-17] MEDS: traZODone HCL 100 MG TAB PO SCH (20:49)
[2021-06-18] MEDS: PANTOprazole 40 MG TAB PO SCH (06:37)
[2021-06-18] MEDS: GABAPENTIN 300 MG CAP PO SCH ×2 (08:57→20:15)
[2021-06-18] MEDS: LEVOTHYROXINE SODIUM 50 MCG TABLET PO SCH (08:58)
[2021-06-18] MEDS: TOPIRAMATE 50 MG TAB PO SCH ×2 (08:58→20:15)
[2021-06-18] MEDS: PROPRANOLOL HCL 10 MG TAB PO SCH (08:58)
[2021-06-18] MEDS: ADVANCED PROBIOTIC 1250 MG CAPSULE PO SCH (08:59)
[2021-06-18] MEDS: MULTIVITAMIN CHEWABLE TAB PO SCH (08:59)
[2021-06-18] MEDS: CYANOCOBALAMIN (VITAMIN B-12) 2,500 MCG TAB.SUBL SL SCH (08:59)
[2021-06-18] MEDS: DESVENLAFAXINE SUCCINATE 100 MG ER TABLET PO SCH (09:00)
[2021-06-18] MEDS: ELINEST PO SCH (09:01)
[2021-06-18] MEDS: lamoTRIgine 100 MG TAB PO SCH ×2 (11:13→20:15)
--- NOTE | 2021-06-18 15:59 | Psychiatric Progress Note ---
Date of Service June 18, 2021 Impression / Recommendations Impression Margareth is a 26-year-old female with a history of recurrent depression, brief hypomania with increase in impulsivity/reactivity/substance use, who presents with ongoing SI with plan to OD on her sleeping pills (hydroxyzine and trazodone). She has a history of overdose and has failed multiple medication trials. She is overwhelmed by work and keeping her symptoms relatively secret from her coworkers and partner which adds to her risk. 06/18/21: improvement in mood with no SI and productive family meeting with her boyfriend including extensive safety planning and he has agreed to secure and remove harmful items from the house. (1) Bipolar II disorder with or without full interepisode recovery: (2) Vitamin D deficiency: 06/18/21: continue pristiq and trazodone, safety planning completed, discussed considerations regarding her job and managing stress related to this 06/17/21: continue Pristiq 100 mg trial, family meeting 06/16/21: Patient agreeable to 100 mg Pristiq starting tomorrow. Given DBT handout. 06/15/21: Reviewed that care was coordinated with Dr. Boogie and we feel continuing the Pristiq trial is in her best interest, particularly given past positive response to Effexor XR 300 mg. Ideally would interim dose to 75 mg but 2 caps and is non formulary. Checking with pharmacy in meantime 100 mg Pristiq ordered by [facility] for scrap picker tomorrow afternoon with $10 copay. 06/14/21: The patient was admitted to the [facility] ([facility] mental health unit) on q15 min checks (behavioral with suicide precautions) for safety. The patient will participate in group, recreational, and milieu therapies and will be offered additional individual and family sessions as clinically appropriate. Risks/benefits/alternatives reviewed re: her current medications. Discussion included but was not limited to need for monitoring for metabolic/TD, and risks in OD. Will coordinate care with outpatient psychiatrist before initiating additional medication changes. Pristiq is non-formulary and once dose is decided she will need rx soon. Labs reviewed as thyroid seems appropriately corrected. She is due to Vitamin D level soon so will draw here. Inventory Assets Strengths: intelligent, has consistently participated in outpatient treatment Needs: safety plan around medications, meeting with boyfriend. Risk Factors Assessment : Yes Do You Have Access To A Gun?: No Mental Health Diagnoses: Yes Previous Attempt: Yes Previous Psychiatric Hospitalization: Yes Protective Factors Assessment Employed: Yes Stable Relationships: Yes Interval History Identifying Information MARGARETH JUDGE is a 26-year-old F who currently lives in [place] with her boyfriend, has a history of suicidal ideation, and was admitted on 06/13/21 14:00 on a 201 voluntary commitment for same. Chief Complaint "I had a lot of stressors including my job". Review of Systems Sleep Information Total Hours of Sleep: 6.5 Sleep Comments: pt given trazodone per rn. pt on q-15 minute checks Meal Information Percent Meal Consumed - Breakfast: 75 Percent Meal Consumed - Lunch: 75 Percent Meal Consumed - Dinner: 100 Subjective Subjective Patient was seen & assessed and interval progress reviewed with treatment team nursing and social work. She had a family meeting today with her boyfriend, who she lives with, that went well. She notes her mood has improved with medication changes and coping skills groups. She continues to find trazodone helpful for sleep. No SI. No medication side effects. She's considering what to do about her job as it adds to her stress but she also needs a way to remain financially sta ble so she plans to discuss options more with her boyfriend to see if taking a few weeks off from work may help her focus on therapy and getting into a good self-care routine. Reviewed that structure of a job can be very helpful if she can find good ways to manage her stress or advocate for her needs. Physical Exam Psychiatric Orientation: alert and oriented x 3 Apperance: appropriately dressed and appropriately groomed Eye Contact: good eye contact Motor Behavior: no abnormal motor movements Speech: normal rate/rhythm/volume of speech Affect: euthymic affect Mood: + anxious mood Thought Process: goal directed thought process Thought Content: reality based without delusions Suicidal Thoughts: denies suicidal thoughts Homicidal Thoughts: denies homicidal thoughts Hallucinations: no auditory hallucinations and no visual hallucinations Cognition: recent memory grossly intact, remote memory grossly intact, attention grossly intact and language grossly intact Estimated Intelligence: consistent with education level Insight: + fair insight Judgement: + fair judgement Vital Signs (Past 24 Hours) Last Vital Signs Temp 36.8 C 06/18/21 06:44 Pulse 81 06/18/21 06:45 Resp 16 06/18/21 06:44 BP 118/79 06/18/21 06:45 Pulse Ox 98 06/13/21 15:03 Results & Data ([facility]) Current Inpatient Medications Current Inpatient Medications: Current Inpatient Medications Acetaminophen (Acetaminophen 325 Mg Tab) 650 mg PO Q4H PRN PRN Reason: Headache or Minor Fever Stop: 07/13/21 13:59 Al Hydrox/Mg Hydrox/Simethicone (Aluminum/Magnesium Susp 30 Ml Udc) 30 ml PO Q4H PRN PRN Reason: GI Upset Stop: 07/13/21 13:59 Albuterol (Albuterol Hfa 8 Gm Inhaler) 1 puffs INH QID PRN PRN Reason: Wheezing Stop: 07/13/21 16:59 Bismuth Subsalicylate (Bismuth Subsalicylate Liqd 236 Ml) 15 ml PO PRN PRN PRN Reason: Loose Stool Stop: 07/13/21 13:59 Cyanocobalamin (Cyanocobalamin (Vitamin B-12) 2,500 Mcg Tab.Subl) 2,500 mcg SL DAILY [facility] Stop: 07/14/21 08:59 Last Admin: 06/18/21 08:59 Dose: 2,500 mcg Documented by: Desvenlafaxine Succinate (Desvenlafaxine Succinate 100 Mg Er Tablet) 1 tab PO Jesse CORNELL [facility]; Protocol Stop: 07/17/21 08:59 Last Admin: 06/18/21 09:00 Dose: 1 tab Documented by: Ergocalciferol (Ergocalciferol 50,000 Units 1250 Mcg Cap) 50,000 units PO Lopez@0900 [facility] Stop: 07/20/21 08:59 Gabapentin (Gabapentin 300 Mg Cap) 300 mg PO BID [facility] Stop: 07/13/21 20:59 Last Admin: 06/18/21 08:57 Dose: 300 mg Documented by: Hydroxyzine HCl (Hydroxyzine Hcl 25 Mg Tab) 50 mg PO HS PRN PRN Reason: insomnia Stop: 07/13/21 13:53 Last Admin: 06/16/21 21:30 Dose: 50 mg Documented by: Hydroxyzine HCl (Hydroxyzine Hcl 25 Mg Tab) 25 mg PO Q4H PRN PRN Reason: Anxiety Stop: 07/13/21 13:59 Lactobacillus Acidoph/Casei/Rhamnos (Advanced Probiotic 1250 Mg Capsule) 2 cap PO DAILY [facility] Stop: 07/17/21 08:59 Last Admin: 06/18/21 08:59 Dose: 2 cap Documented by: Lamotrigine (Lamotrigine 100 Mg Tab) 200 mg PO QAM [facility] Stop: 07/13/21 13:59 Last Admin: 06/18/21 11:13 Dose: 200 mg Documented by: Lamotrigine (Lamotrigine 100 Mg Tab) 150 mg PO QPM [facility] Stop: 07/13/21 20:59 Last Admin: 06/17/21 20:47 Dose: 150 mg Documented by: Levothyroxine Sodium (Levothyroxine Sodium 50 Mcg Tablet) 50 mcg PO DAILYBB [facility] Stop: 07/14/21 07:59 Last Admin: 06/18/21 08:58 Dose: 50 mcg Documented by: Magnesium Hydroxide (Magnesium Hydroxide Susp 30 Ml Udc) 30 ml PO DAILY PRN PRN Reason: Constipation Stop: 07/13/21 13:59 Multivitamins/Folic Acid/Vitamin C (Multivitamin Chewable Tab) 1 tab PO DAILY [facility] Stop: 07/17/21 08:59 Last Admin: 06/18/21 08:59 Dose: 1 tab Documented by: Naproxen (Naproxen 250 Mg Tab) 125 mg PO Q12H PRN PRN Reason: Pain, Mild Stop: 07/13/21 13:53 Elinest ~ Non- Formulary Patient's Own Med 1 ea PO DAILY [facility] Stop: 07/14/21 08:59 Last Admin: 06/18/21 09:01 Dose: 1 ea Documented by: Pantoprazole Sodium (Pantoprazole 40 Mg Tab) 40 mg PO DAILY@0700 [facility] Stop: 07/16/21 06:59 Last Admin: 06/18/21 06:37 Dose: 40 mg Documented by: Propranolol HCl (Propranolol Hcl 10 Mg Tab) 10 mg PO QAM [facility] Stop: 07/14/21 08:59 Last Admin: 06/18/21 08:58 Dose: 10 mg Documented by: Risperidone (Risperidone 1 Mg Tablet) 1 mg PO HS [facility] Stop: 07/13/21 20:59 Last Admin: 06/17/21 20:48 Dose: 1 mg Documented by: Sodium Chloride (Sodium Chloride 0.65% Na Soln 45 Ml ([place])) 1 - 2 sprays NA PRN PRN PRN Reason: Nasal Dryness/Congestion Stop: 07/13/21 13:59 Topiramate (Topiramate 50 Mg Tab) 50 mg PO BID [facility] Stop: 07/13/21 20:59 Last Admin: 06/18/21 08:58 Dose: 50 mg Documented by: Trazodone HCl (Trazodone Hcl 100 Mg Tab) 100 mg PO HS [facility] Stop: 07/16/21 21:59 Last Admin: 06/17/21 20:49 Dose: 100 mg Documented by: Mental Health & Subst Abuse Tx Psychiatrist Name of Psychiatrist: Roxana Boogie Psychiatrist's Date of Appointment with Psychiatrist: 06/21/21 Time of Appointment with Psychiatrist: 1:30 PM Psychiatric Appointment Comment: [address] [facility], [facility] [address], [place] Therapist Name of Therapist: Reggie Blanchard Therapist's Date of Therapist Appointment: 06/29/21 Time of Therapist Appointment: 3:00 PM Therapy Appointment Comment: [address], [facility] [address], [place] Post Discharge Appointments Primary Care Physician Name Of Family Doctor: ETIENNE - BRYANNA Abdul Primary Care Date of Appointment with PCP: 06/28/21 Time of Appointment with PCP: 4:00 PM Provider Appointment Comment: [address], [place], [place] Contact Information Discharge Discharge Address: [address] [place] [address] [place] [address]
[2021-06-18] MEDS: risperiDONE 1 MG TABLET PO SCH (21:44)
[2021-06-18] MEDS: traZODone HCL 100 MG TAB PO SCH (21:44)
[2021-06-19] MEDS: PANTOprazole 40 MG TAB PO SCH (06:47)
[2021-06-19] MEDS: LEVOTHYROXINE SODIUM 50 MCG TABLET PO SCH (08:59)
[2021-06-19] MEDS: TOPIRAMATE 50 MG TAB PO SCH (09:01)
[2021-06-19] MEDS: lamoTRIgine 100 MG TAB PO SCH (09:01)
[2021-06-19] MEDS: ADVANCED PROBIOTIC 1250 MG CAPSULE PO SCH (09:02)
[2021-06-19] MEDS: GABAPENTIN 300 MG CAP PO SCH (09:02)
[2021-06-19] MEDS: PROPRANOLOL HCL 10 MG TAB PO SCH (09:02)
[2021-06-19] MEDS: CYANOCOBALAMIN (VITAMIN B-12) 2,500 MCG TAB.SUBL SL SCH (09:03)
[2021-06-19] MEDS: DESVENLAFAXINE SUCCINATE 100 MG ER TABLET PO SCH (09:04)
[2021-06-19] MEDS: MULTIVITAMIN CHEWABLE TAB PO SCH (09:04)
[2021-06-19] MEDS: ELINEST PO SCH (09:05)
--- NOTE | 2021-06-19 09:13 | Discharge Summary ---
Date of Service June 19, 2021 History of Present Illness Margareth was last hospitalized on 3S in November 2020, she reports that her mood has been chronically dysthymic, "I don't know who I am or what I want, I put on a face." Since that time she has moved in with her boyfriend. It was meant to be temporary between leases but stayed and feels that she is a burden there some how. She hasn't unpacked, "like he doesn't have room for me". She reports stress from a relatively new job (2/[address] of the way through orientation with [employer] in [place] but works M/W/F very early hours until 1 pm. This means she takes her sleeping medication by 4 pm those days and doesn't find it as effective. She reports deciding not to go to work on Monday and instead drove to visit a friend (ex) and smoking MJ for the first time in 3 months. She did not tell her significant other that she hadn't gone to work despite knowing he was off. At 7 pm he still had not texted to see where she was which only added to her depression. On her second day of missing work her employer called the police out of concern as she wasn't responding to their calls and texts. At that point she realized her suicidal thoughts were more persistent and that "I better go somewhere this time." Typically when she has been admitted to the hospital before it is at the insistence of others, for example her 04/15 admission to [facility] was because she told a coworker that she "should have waited until my boyfriend left" to take pills to OD, presumably wouldn't be found so a 302 warrant was initiated. Margareth states her sleep hasn't been as good but attributes to her schedule, some hx of binge eating but denies currently. She reports even on a "decent day" she is forgetful and procrastinates and wonders if she has adult ADHD. She has a history of heavy MJ use but denies other than 06/11/21. She denies recent symptoms of patricia. With regards to her bipolar disagnosis, she has experienced primarily recurrent depression and reactive irritability/rage. She did have a period of at least 5 days last year where she did not require much sleep and did "unusual impulsive stuff", like putting alcohol in a thermos and driving will drinking it (even though she's "not a drinker"). Physical Exam Vital Signs (Past 24 Hours) Last Vital Signs Temp 36.9 C 06/19/21 06:58 Pulse 87 06/19/21 06:59 Resp 16 06/19/21 06:58 BP 112/77 06/19/21 06:59 Pulse Ox 98 06/13/21 15:03 See admission H&P and DOD summary. Principal Diagnosis Bipolar Type II Disorder current major depressive episode Psychiatric Data See daily stay summary. In short, patient was engaged with the social/therapeutic milieu of the unit, safety was maintained and the patient was cooperative with care. Medication changes included dose increase of her Pristiq and she tolerated this well. Vitamin D level was normal on labwork. Labs of fasting glucose, fasting lipid profile, and weight were preformed and WNL. Recommend repeat fasting glucose and fasting lipid profile every 12 weeks and then annually. If symptoms arise recommend checking BP, EKG, prolactin level as clinically indicated or relevant. A family session was held and safety plan was completed prior to discharge. She consistently denied SI in the days leading up to discharge and was excited about returning home with her boyfriend. She participated in extensive safety planning and feels well supported by her boyfriend who agreed to secure any dangerous items in the home prior to her discharge and to help her manage her medications. She has follow-up with her psychiatrist and therapist scheduled. Day of Discharge Assessment Today the patient voices readiness for discharge. They note improvement in mood and anxiety. They deny thoughts of harm to self or others. Thoughts are organized and they are clinically improved from admission. There is no evidence of psychosis. They improved in the hospital with support and medication adjustments. They agree to take medications as prescribed and keep follow-up appointments. At the time of the discharge they are deemed to be stable and appropriate for outpatient level of care. They are not deemed to be at imminent risk of harm to self or others. They are aware of emergency and crisis services. Knows to call 911 or go to nearest emergency care center if in a crisis which cannot be handled as an outpatient. Transition of Care Transition Of Care Record: was reviewed with the patient Advance Directives Advance Directives Information Provided: Yes Advance Directives: No Mental Health Advance Directive: No Advance Directives on File: No Living Will: No Power of Virtual Reality Specialist: No Advance Directives Reason:: Declines as Mental Health Visit. Risk Factors Assessment : Yes Do You Have Access To A Gun?: No Health Problems: No Mental Health Diagnoses: Yes Previous Attempt: Yes Previous Psychiatric Hospitalization: Yes Hopelessness: No Smoker: No Protective Factors Assessment Employed: Yes Stable Relationships: Yes Supportive Family: Yes Good Rapport with Provider: Yes Discharge Data Lab Results 06/13/21 06/13/21 06/13/21 11:08 11:08 11:08 WBC RBC Hgb Hct MCV MCH MCHC RDW Std Deviation RDW Coeff of Radhika Plt Count MPV Immature Gran % (Auto) Neut % (Auto) Lymph % (Auto) [place] % (Auto) Eos % (Auto) Baso % (Auto) Neut # (Auto) Lymph # (Auto) [place] # (Auto) Eos # (Auto) Baso # (Auto) Immature Gran # (Auto) Sodium Potassium Chloride Carbon Dioxide Anion Gap BUN Creatinine Est Cr Clr Drug Dosing Est GFR ( Amer) Est GFR (Non-Af Amer) BUN/Creatinine Ratio Glucose Fasting Glucose Calcium Total Bilirubin AST ALT Alkaline Phosphatase Total Protein Albumin Globulin Albumin/Globulin Ratio Triglycerides Cholesterol LDL Cholesterol, Calc VLDL Cholesterol, Calc HDL Cholesterol Cholesterol/HDL Ratio 25-OH Vitamin D Total TSH HCG, Qual Urine Color Yellow Urine Appearance Cloudy A Urine pH 7.5 Ur Specific [place] 1.022 Urine Protein Negative Urine Glucose (UA) Negative Urine Ketones Negative Urine Blood Negative Urine Nitrite Negative Urine Bilirubin Negative Urine Urobilinogen Negative Ur Leukocyte Esterase Negative Urine WBC (Auto) 1-5 Urine RBC (Auto) 0-4 U Hyaline Cast (Auto) 0 U Epithel Cells (Auto) >30 H Urine Bacteria (Auto) Negative Salicylates Urine Opiates Screen Neg Ur Methadone, Qual Neg Acetaminophen Urine Barbiturates Neg Ur Phencyclidine (PCP) Neg U Amphetamin/Meth Scrn Neg MDMA (Ecstasy) Screen Neg U Benzodiazepines Scrn Neg Ur Cocaine Metabolite Neg U Marijuana (THC) Screen Pos H U Marijuana THC Carboxy 33 H Drug Screen Comment SEE NOTE Ethyl Alcohol mg/dL SARS-CoV-2, RNA, NAAT 06/13/21 06/13/21 06/13/21 11:31 11:37 11:37 WBC 8.91 RBC 4.69 Hgb 13.6 Hct 40.3 MCV 85.9 MCH 29.0 MCHC 33.7 RDW Std Deviation 39.0 RDW Coeff of Radhika 12.6 Plt Count 289 MPV 10.6 H Immature Gran % (Auto) 0.6 Neut % (Auto) 59.0 Lymph % (Auto) 29.2 [place] % (Auto) 5.5 Eos % (Auto) 5.4 Baso % (Auto) 0.3 Neut # (Auto) 5.26 Lymph # (Auto) 2.60 [place] # (Auto) 0.49 Eos # (Auto) 0.48 Baso # (Auto) 0.03 Immature Gran # (Auto) 0.05 H Sodium 141 Potassium 3.8 Chloride 111 H Carbon Dioxide 20 L Anion Gap 10.0 BUN 12 Creatinine 0.98 Est Cr Clr Drug Dosing 93.7 Est GFR ( Amer) 91.0 Est GFR (Non-Af Amer) 78.5 BUN/Creatinine Ratio 12.0 Glucose 100 H Fasting Glucose Calcium 8.6 Total Bilirubin 0.2 AST 9 L ALT 21 Alkaline Phosphatase 87 Total Protein 7.3 Albumin 3.8 Globulin 3.5 Albumin/Globulin Ratio 1.1 Triglycerides Cholesterol LDL Cholesterol, Calc VLDL Cholesterol, Calc HDL Cholesterol Cholesterol/HDL Ratio 25-OH Vitamin D Total TSH 1.940 HCG, Qual Urine Color Urine Appearance Urine pH Ur Specific [place] Urine Protein Urine Glucose (UA) Urine Ketones Urine Blood Urine Nitrite Urine Bilirubin Urine Urobilinogen Ur Leukocyte Esterase Urine WBC (Auto) Urine RBC (Auto) U Hyaline Cast (Auto) U Epithel Cells (Auto) Urine Bacteria (Auto) Salicylates Urine Opiates Screen Ur Methadone, Qual Acetaminophen Urine Barbiturates Ur Phencyclidine (PCP) U Amphetamin/Meth Scrn MDMA (Ecstasy) Screen U Benzodiazepines Scrn Ur Cocaine Metabolite U Marijuana (THC) Screen U Marijuana THC Carboxy Drug Screen Comment Ethyl Alcohol mg/dL SARS-CoV-2, RNA, NAAT NEGATIVE 06/13/21 06/13/21 06/13/21 11:37 11:37 11:37 WBC RBC Hgb Hct MCV MCH MCHC RDW Std Deviation RDW Coeff of Radhika Plt Count MPV Immature Gran % (Auto) Neut % (Auto) Lymph % (Auto) [place] % (Auto) Eos % (Auto) Baso % (Auto) Neut # (Auto) Lymph # (Auto) [place] # (Auto) Eos # (Auto) Baso # (Auto) Immature Gran # (Auto) Sodium Potassium Chloride Carbon Dioxide Anion Gap BUN Creatinine Est Cr Clr Drug Dosing Est GFR ( Amer) Est GFR (Non-Af Amer) BUN/Creatinine Ratio Glucose Fasting Glucose Calcium Total Bilirubin AST ALT Alkaline Phosphatase Total Protein Albumin Globulin Albumin/Globulin Ratio Triglycerides Cholesterol LDL Cholesterol, Calc VLDL Cholesterol, Calc HDL Cholesterol Cholesterol/HDL Ratio 25-OH Vitamin D Total TSH HCG, Qual Negative Urine Color Urine Appearance Urine pH Ur Specific [place] Urine Protein Urine Glucose (UA) Urine Ketones Urine Blood Urine Nitrite Urine Bilirubin Urine Urobilinogen Ur Leukocyte Esterase Urine WBC (Auto) Urine RBC (Auto) U Hyaline Cast (Auto) U Epithel Cells (Auto) Urine Bacteria (Auto) Salicylates < 1.7 L Urine Opiates Screen Ur Methadone, Qual Acetaminophen < 2 L Urine Barbiturates Ur Phencyclidine (PCP) U Amphetamin/Meth Scrn MDMA (Ecstasy) Screen U Benzodiazepines Scrn Ur Cocaine Metabolite U Marijuana (THC) Screen U Marijuana THC Carboxy Drug Screen Comment Ethyl Alcohol mg/dL < 3.0 SARS-CoV-2, RNA, NAAT 06/14/21 06/17/21 08:17 08:25 WBC RBC Hgb Hct MCV MCH MCHC RDW Std Deviation RDW Coeff of Radhika Plt Count MPV Immature Gran % (Auto) Neut % (Auto) Lymph % (Auto) [place] % (Auto) Eos % (Auto) Baso % (Auto) Neut # (Auto) Lymph # (Auto) [place] # (Auto) Eos # (Auto) Baso # (Auto) Immature Gran # (Auto) Sodium Potassium Chloride Carbon Dioxide Anion Gap BUN Creatinine Est Cr Clr Drug Dosing Est GFR ( Amer) Est GFR (Non-Af Amer) BUN/Creatinine Ratio Glucose Fasting Glucose 88 Calcium Total Bilirubin AST ALT Alkaline Phosphatase Total Protein Albumin Globulin Albumin/Globulin Ratio Triglycerides 135 Cholesterol 155 LDL Cholesterol, Calc 82 VLDL Cholesterol, Calc 27 HDL Cholesterol 46 Cholesterol/HDL Ratio 3 25-OH Vitamin D Total 54.4 TSH HCG, Qual Urine Color Urine Appearance Urine pH Ur Specific [place] Urine Protein Urine Glucose (UA) Urine Ketones Urine Blood Urine Nitrite Urine Bilirubin Urine Urobilinogen Ur Leukocyte Esterase Urine WBC (Auto) Urine RBC (Auto) U Hyaline Cast (Auto) U Epithel Cells (Auto) Urine Bacteria (Auto) Salicylates Urine Opiates Screen Ur Methadone, Qual Acetaminophen Urine Barbiturates Ur Phencyclidine (PCP) U Amphetamin/Meth Scrn MDMA (Ecstasy) Screen U Benzodiazepines Scrn Ur Cocaine Metabolite U Marijuana (THC) Screen U Marijuana THC Carboxy Drug Screen Comment Ethyl Alcohol mg/dL SARS-CoV-2, RNA, NAAT Hospital Course (1) Bipolar II disorder with or without full interepisode recovery: (2) Vitamin D deficiency: 06/18/21: continue pristiq and prior to admission medications, safety planning completed, discussed considerations regarding her job and managing stress related to this 06/17/21: continue Pristiq 100 mg trial, family meeting 06/16/21: Patient agreeable to 100 mg Pristiq starting tomorrow. Given DBT handout. 06/15/21: Reviewed that care was coordinated with Dr. Boogie and we feel continuing the Pristiq trial is in her best interest, particularly given past positive response to Effexor XR 300 mg. Ideally would interim dose to 75 mg but 2 caps and is non formulary. Checking with pharmacy in meantime 100 mg Pristiq ordered by [employer] in [facility] for peanut picker tomorrow afternoon with $10 copay. 06/14/21: The patient was admitted to the [facility] ([facility] inpatient mental health unit) on q15 min checks (behavioral with suicide precautions) for safety. The patient will participate in group, recreational, and milieu therapies and will be offered additional individual and family sessions as clinically appropriate. Risks/benefits/alternatives reviewed re: her current medications. Discussion included but was not limited to need for monitoring for metabolic/TD, and risks in OD. Will coordinate care with outpatient psychiatrist before initiating additional medication changes. Pristiq is non-formulary and once dose is decided she will need rx soon. Labs reviewed as thyroid seems appropriately corrected. She is due to Vitamin D level soon so will draw here. Mental Health & Subst Abuse Tx Psychiatrist Name of Psychiatrist: Roxana Arrington - Dr. Boogie Psychiatrist's Date of Appointment with Psychiatrist: 06/21/21 Time of Appointment with Psychiatrist: 1:30 PM Psychiatric Appointment Comment: [address] [facility], [facility] [address], [facility] Therapist Name of Therapist: Reggie Blanchard Therapist's Date of Therapist Appointment: 06/29/21 Time of Therapist Appointment: 3:00 PM Therapy Appointment Comment: [address], [place] Post Discharge Appointments Primary Care Physician Name Of Family Doctor: BRYANNA [facility] Date of Appointment with PCP: 06/28/21 Time of Appointment with PCP: 4:00 PM Provider Appointment Comment: [id number] , [place], [place] Contact Information Discharge Discharge [address]: [address] [place] [id number] Discharge Plan Discharge Items Patient Disposition: Home - Self-Care Reason For Visit: MAJOR DEPRESSIVE DISORDER Discharge Diagnosis: Major Depressive Disorder Activity: Resume your previous activity Non-emergency contact: Primary Care Provider, Psychiatrist and Therapist Call non-emergency contact if: you have any medication questions and your symptoms worsen Follow-up/Referrals: Raúl Larsen III, CRNP [Primary Care Provider] - Diet: Regular Addtl Attending Provider Instructions: SPECIAL CARE INSTRUCTIONS: 1. Follow through with your scheduled aftercare appointments. If unable to keep an appointment, please call to reschedule. 2. Take your medication only as prescribed. Medication should not be changed or stopped without the approval of your doctor. In the event of worsening symptoms or concerns about side effects, contact your doctor immediately. 3. Utilize new healthy coping skills, anger management skills, and stress management skills learned during your hospitalization. Journal feelings and process them with a support person. Identify stressors or situations that may result in relapse, deterioration or inappropriate behaviors and develop a plan to deal with those issues. 4. If your coping skills are ineffective and you are in crisis, contact your outpatient providers for direction. If unable to reach your providers, please call the [facility] CRISIS LINE AT , go to the [facility] walk-in center at [address] [facility] [address], [address], [place], or go to the closest Emergency Room. 5. Avoid alcohol and un-prescribed drugs. 6. You have been provided with the Mental Health Advance Directives Pamphlet for your review. 7. Your condition is stable for discharge to outpatient level of care, but recovery is an ongoing process. Ifthoughts to harm yourself or others return, follow the safety plan developed during your stay. Planning for a safe return home includes securing weapons. Our treatment team recommends weaponsbe removed from the home until your outpatient provider reassesses your progress. In rare cases where the items themselvescannot be removed, guns and ammunitionshould be secured separatelyand keys stored by a reliable personoutside of the home. If you were admitted on an involuntary commitment, the police or other legal authorities may be involved in this process. AFTERCARE APPOINTMENTS: * Please call your insurance company prior to your scheduled appointment to confirm your aftercare providers are covered. Take your insurance information to your appointments. WHO TO CALL AND WHEN: Medical Emergencies: For questions or emergencies related to your hospital stay, please contact the Inpatient Behavioral Health Unit at [phone]. A distributor publications is on-call 16/01 for the Behavioral Health Unit for emergencies At any time you feel your situation is an emergency, you may also call 911 [facility]. Pending Studies at Discharge: No Stand-Alone Forms: My [facility] Medications and DC Order Prescriptions: New trazodone 100 mg Tablet 100 mg PO HS Qty: 0 RF: 0 lamotrigine 100 mg Tablet 200 mg PO QAM Qty: 0 RF: 0 lamotrigine 100 mg Tablet 150 mg PO QPM Qty: 0 RF: 0 desvenlafaxine succinate [Pristiq] 100 mg Tablet Extended Release 24 Hr 1 tab PO DAILY Qty: 0 RF: 0 Continued pantoprazole 40 mg tablet,delayed release (DR/EC) 40 mg PO DAILY Qty: 90 RF: 3 gabapentin 300 mg capsule 300 mg PO BID RF: 0 Cryselle (28) 0.3-30 mg-mcg tablet 1 tab PO DAILY Qty: 28 RF: 11 ergocalciferol (vitamin D2) 1,250 mcg (50,000 unit) capsule 1,250 mcg PO .weekly Qty: 30 RF: 2 cyanocobalamin (vitamin B-12) 1,000 mcg tablet 3,000 mcg PO DAILY Qty: 30 RF: 0 hydroxyzine HCl 50 mg tablet 50 mg PO HS PRN (Reason: insomnia) Qty: 60 RF: 0 levothyroxine [Synthroid] 50 mcg tablet 50 mcg PO DAILY Qty: 90 RF: 1 topiramate 50 mg tablet 50 mg PO BID RF: 0 Flintstones Complete See Rx Instructions .ROUTE .COMPLEX RF: 0 Probiotic See Rx Instructions .ROUTE .COMPLEX RF: 0 propranolol 10 mg Tablet 10 mg PO QAM Qty: 30 RF: 0 naproxen 250 mg tablet 125 mg PO Q12H PRN (Reason: Pain, Mild) Qty: 30 RF: 0 risperidone 1 mg Tablet 1 mg PO HS RF: 0 albuterol sulfate 90 mcg/actuation Hfa Aerosol Inhaler 1 puff INHALATION QID PRN (Reason: Shortness Of Breath) RF: 0 Discontinued trazodone 100 mg tablet 100 mg PO DAILY PRN (Reason: Anxiety) RF: 0 lamotrigine 100 mg tablet 200 mg PO QAM MDD 2 in am and 1 1/2 in the pm RF: 0 desvenlafaxine succinate [Pristiq] 25 mg tablet extended release 24 hr 50 mg PO DAILY RF: 0 Discharge Orders: Discharge Order (Routine); Ordered 06/19/21 Ordered By: Leslie Gill/Other Patient Handouts: Journaling for Mental Health, Counseling for Depression, Depression: Tips to Help Yourself Admission Data Admit Date/Time: 06/13/21 14:00 Attending Provider: Daphne Kennedy Admit Provider: Daphne Kennedy Primary Care Provider: Raúl Larsen III Other Interventions: PSY Interdisciplinary Discharge Planning Last Done: 06/15/21 12:50 Coding Level of Care Code 34130 D/C day mgmt > 30 min Diagnoses Bipolar II disorder with or without full interepisode recovery F31.81 Vitamin D deficiency E55.9 Time Spent (min) 45
[2021-06-20] MEDS ORDERED: ERGOCALCIFEROL 50,000 UNITS 1250 MCG CAP PO SCH (09:00)
== END 2021-06-19 10:30 | disposition home or self-care (01) | DRG 885 ==
LOC: ED 10:47 → 3S 14:00